=== PATIENT | male | born 1945 | race Caucasian/White ===

== ENCOUNTER 2016-05-24 05:41 | Day surgery (SDC) | payer OTHER, MEDICARE ==
[2016-05-22 10:52] VITALS: BMI 35.2
[~2016-05-24 05:41] MED LIST: ACETAMINOPHEN 325 MG TABLET (FP) PO PRN; CIPROFLOXACIN HCL 0.3% OPHTH 2.5ML BOTTLE OP SCH; CYCLOPENTOLATE HCL 1% OPHTH SOLN 2 ML BOTTLE OP SCH; FLURBIPROFEN 0.03% OPHTH SOLN 2.5 ML BOTTLE OP SCH; PHENYLEPHRINE 2.5% OPHTH SOLN 15 ML BOTTLE OP SCH; TROPICAMIDE 1% OPHTH SOLN 15 ML BOTTLE OP SCH
[2016-05-24] MEDS ORDERED: LIDOCAINE HCL 2% JELLY (5 ML/TUBE) ONE (07:24)
[2016-05-24] MEDS ORDERED: LIDOCAINE HCL/PF 1% SDV 5ML VIAL ONE (07:24)
[2016-05-24] MEDS: FLURBIPROFEN 0.03% OPHTH SOLN 2.5 ML BOTTLE ONE ×2 (10:10→10:20)
[2016-05-24] MEDS: TROPICAMIDE 1% OPHTH SOLN 15 ML BOTTLE ONE ×3 (10:10→10:43)
[2016-05-24] MEDS: CIPROFLOXACIN 0.3% EYE DROPS 5 ML BOTTLE ONE ×3 (10:10→10:42)
[2016-05-24] MEDS: CYCLOPENTOLATE HCL 1% OPHTH SOLN 2 ML BOTTLE ONE ×3 (10:10→10:43)
[2016-05-24] MEDS: PHENYLEPHRINE 2.5% OPHTH SOLN 15 ML BOTTLE ONE ×3 (10:10→10:43)
[2016-05-24 10:33] VITALS: TEMP 97.8
[2016-05-24] MEDS ORDERED: LIDOCAINE HCL 2% JELLY (5 ML/TUBE) TP ONE (11:25)
[2016-05-24] MEDS ORDERED: POVIDONE-IODINE 5% OPHTHALMIC PREP 30 ML SOLUTION OS ONE (11:45)
[2016-05-24] MEDS ORDERED: BSS (NA/CA/MG/K) BALANCED SALT SOLUTION OPHTH SOLN 15 ML BOTTLE OS ONE (11:47)
[2016-05-24] MEDS ORDERED: LIDOCAINE HCL 1% PRESERVATIVE FREE - 30ML VIAL IO ONE (11:47)
[2016-05-24] MEDS ORDERED: EPINEPHrine/PF 1 MG/1 ML (1:1,000) AMPULE IO ONE (11:47)
[2016-05-24] MEDS ORDERED: CHONDROITIN SU A/HYALUR SOD 1 KIT IO ONE (11:47)
[2016-05-24 13:25] VITALS: BP 116/86; PULSE 87
--- NOTE | 2016-05-25 11:00 | SPEC ---
DATE OF OPERATION: 05/24/2016 OPERATION: Phacoemulsification of left cataract with posterior chamber intraocular lens implantation. Lens used [id number], 21.0 Diopter power, Serial No. [id number]. PREOPERATIVE DIAGNOSIS: Cataract, left eye. POSTOPERATIVE DIAGNOSIS: Cataract, left eye. SURGEON: Lito Mendoza M.D. ANESTHESIA: Topical MAC. COMPLICATIONS: None. PROCEDURE: The patient was brought to the operating room and correctly identified along with the operative site and the correct intraocular lens hernandez. The patient was then prepped and draped in the usual sterile fashion including 5% Betadine solution in the conjunctival sac and an eyelid drape. An eyelid speculum was then placed in the eye. A paracentesis port was created and approximately 0.5 mL of preservative free Lidocaine was then injected into the eye. Viscoelastic was then injected to inflate the anterior chamber. A temporal clear corneal wound was created. A continuous circular capsulorrhexis was performed. The nucleus was then hydrodissected with BSS and removed with phacoemulsification. The remaining cortical material was irrigated and aspirated. Viscoelastic was injected to inflate the capsular bag and the intraocular lens was then implanted into the capsular bag. The remaining Viscoelastic was irrigated and aspirated from the eye. The IOL was noted to be well centered and completely covered by the anterior capsulorrhexis. Topical vancomycin was placed and the eye patched and shielded. All wounds were tested and found to be watertight. No suture was placed. The eye was then shielded. The patient was then discharged from the operating room in stable condition. LITO MENDOZA M.D. [id number]
== END 2016-05-24 13:30 | disposition home or self-care (01) ==
LOC: JASU-SURG 05:41
PROVIDERS: ATTEND Ophthalmology
PROC: 08RK3JZ Replacement of Left Lens with Synthetic Substitute, Percutaneous Approach (ICD-10-PCS; principal; 2016-05-24 11:00)
DX: H26.9 Unspecified cataract (principal)

== ENCOUNTER 2016-08-09 05:29 | Day surgery (SDC) | payer OTHER, MEDICARE ==
[2016-08-07 10:56] VITALS: BMI 31.4
[2016-08-09] MEDS ORDERED: CIPROFLOXACIN 0.3% EYE DROPS 5 ML BOTTLE ONE (07:22)
[2016-08-09] MEDS ORDERED: FLURBIPROFEN 0.03% OPHTH SOLN 2.5 ML BOTTLE ONE (07:22)
[2016-08-09] MEDS ORDERED: TROPICAMIDE 1% OPHTH SOLN 15 ML BOTTLE ONE (07:22)
[2016-08-09] MEDS ORDERED: PHENYLEPHRINE 2.5% OPHTH SOLN 15 ML BOTTLE ONE (07:23)
[2016-08-09] MEDS ORDERED: CYCLOPENTOLATE HCL 1% OPHTH SOLN 2 ML BOTTLE ONE (07:23)
[2016-08-09 07:28] VITALS: TEMP 98.7
[2016-08-09] MEDS ORDERED: ACETAMINOPHEN 325 MG TABLET (FP) PO PRN (07:42)
[2016-08-09] MEDS: CIPROFLOXACIN HCL 0.3% OPHTH 2.5ML BOTTLE OP SCH ×3 (07:49→08:29)
[2016-08-09] MEDS: CYCLOPENTOLATE HCL 1% OPHTH SOLN 2 ML BOTTLE OP SCH ×3 (07:49→08:29)
[2016-08-09] MEDS: PHENYLEPHRINE 2.5% OPHTH SOLN 15 ML BOTTLE OP SCH ×3 (07:50→08:29)
[2016-08-09] MEDS: FLURBIPROFEN 0.03% OPHTH SOLN 2.5 ML BOTTLE OP SCH ×3 (07:50→08:29)
[2016-08-09] MEDS: TROPICAMIDE 1% OPHTH SOLN 15 ML BOTTLE OP SCH ×3 (07:50→08:29)
[2016-08-09] MEDS ORDERED: LIDOCAINE HCL 1% PRESERVATIVE FREE - 30ML VIAL IO ONE (08:21)
[2016-08-09] MEDS ORDERED: LIDOCAINE HCL 2% JELLY (5 ML/TUBE) TP ONE (08:50)
[2016-08-09] MEDS ORDERED: MIDAZOLAM HCL 2 MG/2 ML SINGLE DOSE VIAL ONE (09:11)
[2016-08-09] MEDS ORDERED: CHONDROITIN SU A/HYALUR SOD 1 KIT IO ONE (09:23)
[2016-08-09 12:41] VITALS: BP 124/74; PULSE 82
--- NOTE | 2016-08-09 20:59 | SPEC ---
DATE OF OPERATION: OPERATION: Phacoemulsification with posterior chamber intraocular lens implantation, right eye. Lens used [id number], 21.0 Diopter power, Serial No. [id number]. PREOPERATIVE DIAGNOSIS: Cataract, right eye. POSTOPERATIVE DIAGNOSIS: Cataract, right eye. SURGEON: Cory Bruno M.D. ANESTHESIA: Topical MAC. COMPLICATIONS: None. PROCEDURE: The patient was brought to the operating room and correctly identified along with the operative site and the correct intraocular lens hernandez. The patient was then prepped and draped in the usual sterile fashion including 5% Betadine solution in the conjunctival sac and an eyelid drape. An eyelid speculum was then placed in the eye. A paracentesis port was created and approximately 0.5 mL of preservative free Lidocaine was then injected into the eye. Viscoelastic was then injected to inflate the anterior chamber. A temporal clear corneal wound was created. A continuous circular capsulorrhexis was performed. The nucleus was then hydrodissected with BSS and removed with phacoemulsification. The remaining cortical material was irrigated and aspirated. Viscoelastic was injected to inflate the capsular bag and the intraocular lens was then implanted into the capsular bag. The remaining Viscoelastic was irrigated and aspirated from the eye. The IOL was noted to be well centered and completely covered by the anterior capsulorrhexis. Topical vancomycin was placed and the eye patched and shielded. All wounds were tested and found to be watertight. No suture was placed. The eye was then shielded. The patient was then discharged from the operating room in stable condition. Karen ALVARADO/[id number]
== END 2016-08-09 10:40 | disposition home or self-care (01) ==
LOC: JASU-SURG 05:29
PROVIDERS: ATTEND Ophthalmology
PROC: 08RJ3JZ Replacement of Right Lens with Synthetic Substitute, Percutaneous Approach (ICD-10-PCS; principal; 2016-08-09 09:00)
DX: H26.9 Unspecified cataract (principal)

== ENCOUNTER 2016-12-17 00:55 | Emergency (ER) | payer OTHER, MEDICARE ==
[2016-12-17 01:10] VITALS: BP 136/81; PULSE 69; TEMP 97.8; BMI 30.8
--- NOTE | 2016-12-17 01:10 | PDOC ---
History of Present Illness - General History Source: Patient Exam Limitations: No Limitations - History of Present Illness Initial Comments: 12/17/16 02:44 The patient is a 71 year old male, with a significant past medical history of COPD, macular degeneration, arthritis and hypertension who presents to the emergency department complaining of right eye pain and blurry vision (in the right eye) beginning approx. 12 hours ago. The patient reports that he began feeling an odd sensation in his right eye this afternoon and his noted that his right eye was red. The patient describes the right eye pain as a swelling sensation and rates the pain as a 6/10. The patient states that he receives monthly eye injections from his [address] Moraes and received his last injection of Lucentis Tuesday, December 13, 2016 in his right eye. The patient states he attempted to self treat his right eye with the antibiotic Ofloxacin that was left over from his prior cataracts surgery but reports no relief. He denies double vision, photophobia or light flashes. He denies any recent fevers, chills, headache or dizziness. He denies any recent nausea, vomit, diarrhea or constipation. He denies any recent chest pain or shortness of breath. Allergies: NKA Past surgical history: Cataract surgery Social History: Patient states he stopped smoking cigarettes approx. two years ago. He reports smoking 1-2 packs per day prior. PCP: Dr. Jimenez <Manjinder Torres - Last Filed: 12/17/16 03:38> - General History Source: Patient Exam Limitations: No Limitations <Fernanda Mcgrath - Last Filed: 12/20/16 17:38> - General Chief Complaint: Eye Problem Stated Complaint: EYE PROBLEM Time Seen by Provider: 12/17/16 01:10 Past History <Manjinder Torres - Last Filed: 12/17/16 03:38> - Past Medical History Cancer: No Cardiac Disorders: (MURMUR) CVA: Yes COPD: Yes GI Disorders: (gallstone incidental finding) HTN: Yes Hypercholesterolemia: Yes Other medical history: macular degeneration of eyes - Psycho/Social/Smoking Cessation Hx Suicidal Ideation: No Smoking History: Never smoked Have you smoked in the past 12 months: No If you are a former smoker, when did you quit?: 2014 Information on smoking cessation initiated: No Hx Alcohol Use: No Drug/Substance Use Hx: No Substance Use Type: None Hx Substance Use Treatment: No <Fernanda Mcgrath - Last Filed: 12/20/16 17:38> - Past Medical History Allergies/Adverse Reactions: Allergies Allergy/AdvReac Type Severity Reaction Status Date / Time No Known Allergies Allergy Verified 12/17/16 01:03 Home Medications: Ambulatory Orders Aspirin [Aspirin EC] 81 mg PO DAILY 04/04/15 Atorvastatin Ca [Lipitor] 20 mg PO DAILY 04/04/15 Metoprolol Tartrate 25 mg PO ACDIN 04/04/15 Amlodipine Besylate 10 mg PO ACDIN 05/22/16 Budesonide/Formeterol Fumarate [SYMBICORT 160/4.5mcg -] 2 inh PO BID 05/22/16 Furosemide 20 mg PO DAILY 05/22/16 Tiotropium [place] [Spiriva Respimat] 2 inh IH HS 05/22/16 B2/Vits A,C,E/Lut/Zeaxanth/Min [Icaps Tablet] 1 each PO BID 08/07/16 Calcium Carbonate [Calcium] 1,000 mg PO DAILY 08/07/16 Cholecalciferol (Vitamin D3) [Vitamin D3 -] 1,000 unit PO DAILY 08/07/16 Cyanocobalamin [Vitamin B12 -] 1,000 mcg PO DAILY 08/07/16 [place]-3/Dha/Epa/Fish Oil [Fish Oil 1,000 mg Softgel] 2,000 mg PO DAILY 08/07/16 Review of Systems - Review of Systems Comments:: 12/17/16 02:59 GENERAL/CONSTITUTIONAL: No fever or chills. No weakness. HEAD, EYES, EARS, NOSE AND THROAT: +Right eye blurry vision. +Right eye swelling and pain. No ear pain or discharge. No sore throat. CARDIOVASCULAR: No chest pain or shortness of breath. RESPIRATORY: No cough, wheezing, or hemoptysis. GASTROINTESTINAL: No nausea, vomiting, diarrhea or constipation. GENITOURINARY: No dysuria, frequency, or change in urination. MUSCULOSKELETAL: No joint or muscle swelling or pain. No neck or back pain. SKIN: No rash NEUROLOGIC: No headache, vertigo, loss of consciousness, or change in strength/ sensation. ENDOCRINE: No increased thirst. No abnormal weight change. HEMATOLOGIC/LYMPHATIC: No anemia, easy bleeding, or history of blood clots. ALLERGIC/IMMUNOLOGIC: No hives or skin allergy. <Manjinder Torres - Last Filed: 12/17/16 03:38> *Physical Exam - Vital Signs Last Vital Signs Temp Pulse Resp BP Pulse Ox 97.8 F 69 18 136/81 97 12/17/16 00:59 12/17/16 00:59 12/17/16 00:59 12/17/16 00:59 12/17/16 00:59 - Physical Exam Comments: 12/17/16 03:00 GENERAL: The patient is in no acute distress. HEAD: Normal with no signs of trauma. EYES: +Superior visual field defect in right eye. 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 + Yellow/white plaque 8 o'clock direction on right eye. +Conjunctival injection on right eye. Pupil 2mm right eye and 4mm left eye. Direct consensual light reflexes intact. Accommodation in tact. Ocular motion in tact. Corrected near vision 20/200 with left eye and both eyes on exam. 20/800 with right eye alone. Pt. states normal 20/30. ENT: Ears normal, nares patent, oropharynx clear without exudates. Moist mucous membranes. NECK: Normal range of motion, supple without lymphadenopathy, JVD, or masses. LUNGS: Breath sounds equal, clear to auscultation bilaterally. No wheezes, and no crackles. HEART:Regular rate and rhythm, normal S1 and split S2 3rd intercostal space without murmur, rub or gallop. NEUROLOGICAL: Cranial nerves II through XII grossly intact. Normal speech. No focal neurological deficits. SKIN: Warm, Dry, normal turgor, no rashes or lesions noted. 12/17/16 03:39 <Manjinder Torres - Last Filed: 12/17/16 03:38> - Vital Signs Last Vital Signs Temp Pulse Resp BP Pulse Ox 97.8 F 69 18 136/81 97 12/17/16 00:59 12/17/16 00:59 12/17/16 00:59 12/17/16 00:59 12/17/16 00:59 <Fernanda Mcgrath - Last Filed: 12/20/16 17:38> ED Treatment Course - Medications Given in the ED: ED Medications Discontinued Medications Generic Name Dose Route Start Last Admin Trade Name Freq PRN Reason Stop Dose Admin Pilocarpine HCl 1 drop 12/17/16 02:16 12/17/16 02:28 Pilostat 2% - OD 12/17/16 02:17 1 drop NOW ONE Administration <Manjinder Torres - Last Filed: 12/17/16 03:38> Medical Decision Making - Critical Care Time Total Critical Care Time (minutes): 35 Critical Care Statement: The care of this patient involved high complexity decision making to prevent further life threatening deterioration of the patient 's condition and/or to evaluate & treat vital organ system(s) failure or risk of failure. - Medical Decision Making 12/17/16 01:35 A portion of this note was documented by scribe services under my direction. I have reviewed the details of the note, within reason, and agree with the documentation with the following case summary and management plan written by me. Nursing documentation reviewed and incorporated into medical decision making 71 yo M h/o HTN, macular degeneration, sleep apnea who presents to the ER with a complaint of vision loss right eye Pt has a history of macular degeneration S/p intra ocular injection 3 days ago This afternoon, he noted a gradual onset of right eye pain and vision blurriness beginning at 2:30pm Since that time, he has lost most of the vision in his right eye Currently: EOMI Right pupil 1-2 mm Sclera injected Pt reports right eye pain (+) tearing vision 20/200 (pt is only able to see the top line of the vision chart, is unable to make out the numbers but can see that there is something there) Pt preferentially keeps eye closed 12/17/16 01:[address] Schmitz x 2 No response, on hold > 10 minutes Call placed to [facility] instead for transfer given high likelihood of acute narrow angle glaucoma vs. retinal detachment 12/17/16 01:59 12/17/16 02:[address] Denson at [facility] 12/17/16 02:[address] Denson Will transfer to [facility] <Fernanda Mcgrath - Last Filed: 12/20/16 17:38> *DC/Admit/Observation/Transfer - Attestations Scribe Attestion: 12/17/16 03:18 Documentation prepared by Manjinder Torres, acting as medical information specialist for Fernanda Mcgrath MD. <Manjinder Torres - Last Filed: 12/17/16 03:38> - Discharge Dispostion Admit: No - Transfer to Acute Care Facility Receiving Facility: [facility]. Accepting Physician:: Dr. Denson <Fernanda Mcgrath - Last Filed: 12/20/16 17:38> Diagnosis at time of Disposition: Vision loss of right eye - Discharge Dispostion Disposition: TRANSFER ACUTE CARE/OTHER HOSP Condition at time of disposition: Stable - Referrals Referrals: Danny Jimenez MD [Primary Care Provider] -
[2016-12-17] MEDS ORDERED: PILOCARPINE 2% OPHTHALMIC SOLUTION 15 ML BOTTLE OD ONE (02:16)
[2016-12-17] MEDS ORDERED: TIMOLOL 0.5% OPHTHALMIC SOL 5 ML BOTTLE OD ONE (02:20)
[2016-12-17] MEDS ORDERED: PILOCARPINE 1% OPHTHALMIC SOLUTION 15 ML BOTTLE ONE (02:26)
[2016-12-17] MEDS ORDERED: NAPROXEN 500 MG TABLET (FP) ONE (02:48)
[2016-12-17] MEDS ORDERED: NAPROXEN 500 MG TABLET (FP) PO ONE (02:59)
== END 2016-12-17 04:40 | disposition short-term general hospital (02) ==
LOC: JER 00:55
DX: H54.61 Unqualified visual loss, right eye, normal vision left eye (principal); I10 Essential (primary) hypertension; H35.30 Unspecified macular degeneration; J44.9 Chronic obstructive pulmonary disease, unspecified
CPT/HCPCS: 99283-25

== ENCOUNTER 2018-02-12 17:01 | Inpatient (IN) | payer OTHER, MEDICARE ==
--- NOTE | 2018-02-12 17:26 | PDOC ---
Rapid Medical Evaluation Time Seen by Provider: 02/12/18 17:04 Medical Evaluation: Allergies Allergy/AdvReac Type Severity Reaction Status Date / Time No Known Allergies Allergy Verified 02/12/18 17:20 02/12/18 17:20 Pt presents to the ED for pain and redness to his Left lower extremity. Pt states he had bypass done on 01/24/18 and had the veins harvested from the LLE. He states he has been on abx for one week for the infection. PCP is Dr. Jimenez Exam: redness and swelling to the LLE streaking up the leg Orders: Labs, US, IV Pt to proceed to the ED for further evaluation Discharge Disposition - Diagnosis Left leg swelling - Referrals Referrals: Danny Jimenez MD [Primary Care Provider] - - Patient Instructions - Post Discharge Activity
--- NOTE | 2018-02-12 18:22 | PDOC ---
History of Present Illness - General Chief Complaint: Redness To Affected Area Stated Complaint: PCP SENT FOR LT DVT Time Seen by Provider: 02/12/18 17:04 - History of Present Illness Initial Comments: Musa Lara is a 72yo man with a PMH of HTN, HLD, COPD and CAD s/p recent CABG with LLE GSV harvest on 01/24/18 at [place]. His postop course was complicated by development of a-fib, and he is now on anticoagulation. Mr Lara reports that he was discharged home with warfarin following his surgery , but he was instructed to stop taking it about a week ago when his INR was 8 or 9 on his monitoring labs. He was recently switched to apixaban instead ( should start today). After he was discharged home, Mr Lara started to have redness and swelling in his left leg. He had a home nurse at that time who felt that he might have cellulitis He went to follow up with his PMD, Dr Jimenez, and saw an ROLL GRINDER in the office. He was started on keflex and sent for labs. On 02/06/18, he had a leukocytosis to 15 and wound culture grew skin darcy and pseudomonas. The results of these labs were not available until 02/09. Mr Lara received a call from Dr Jimenez's office yesterday telling him to stop the keflex and start taking a different antibiotic. He went to the office today for followup and was sent to the ED for evaluation of possible DVT as he had been off warfarin for a week. Mr Lara reports that over the past week, he has been compliant with his antibiotics and has followed up as directed post-operatively. However his left leg has become increasingly red, swollen, and painful. He has not noted any fevers, shaking chills or drainage from his surgical incisions. He does report some swelling on his upper left chest adjacent to his sternal incision. Past History - Past Medical History Allergies/Adverse Reactions: Allergies Allergy/AdvReac Type Severity Reaction Status Date / Time No Known Allergies Allergy Verified 02/12/18 17:20 Home Medications: Ambulatory Orders Albuterol Sulfate Inhaler - [Ventolin Hfa Inhaler -] 2 inh PO Q6H 02/12/18 Amiodarone HCl 200 mg PO BID 02/12/18 Apixaban [Eliquis] 5 mg PO BID 02/12/18 Aspirin [ASA -] 81 mg PO DAILY 02/12/18 Atorvastatin Ca [Lipitor] 40 mg PO HS 02/12/18 Budesonide/Formeterol Fumarate [SYMBICORT 160/4.5mcg -] 2 inh PO BID 02/12/18 Calcium Carbonate [Super Calcium] 600 mg PO DAILY 02/12/18 Ciprofloxacin [Cipro (Restricted To Id)] 500 mg PO Q12H 02/12/18 Cyanocobalamin (Vitamin B-12) [Vitamin B-12] 1,000 mcg PO DAILY 02/12/18 Dutasteride [Avodart] 0.5 mg PO DAILY 02/12/18 Furosemide 40 mg PO BID 02/12/18 Multivitamin [One Daily] 1 each PO DAILY 02/12/18 Potassium Chloride [K-Tab ER] 10 meq PO DAILY 02/12/18 Tiotropium [place] [Spiriva Respimat] 2 puff IH DAILY 02/12/18 Anemia: No Asthma: No Cancer: No Cardiac Disorders: (MURMUR,triple bypass) CVA: Yes COPD: No CHF: No Dementia: No Diabetes: No GI Disorders: (gallstone incidental finding) Disorders: No HTN: Yes Hypercholesterolemia: Yes Liver Disease: No Seizures: No Thyroid Disease: No - Surgical History Cardiac Surgery: Yes (triple bypass) - Immunization History Immunization Up to Date: Yes - Suicide/Smoking/Psychosocial Hx Smoking History: Never smoked Have you smoked in the past 12 months: No If you are a former smoker, when did you quit?: 2014 Hx Alcohol Use: No Drug/Substance Use Hx: No Substance Use Type: None Hx Substance Use Treatment: No Review of Systems - Review of Systems Comments:: General: No fevers, no chills, no weight or appetite change, no malaise HEENT: No changes in vision, no changes in hearing, no congestion, no sore throat CV: No chest pain, no palpitations, no LE edema Pulm: No SOB, no cough, no wheezing GI: No nausea or vomiting, no change in bowel habits, no melena : No frequency, no urgency, no dysuria Musc: See HPI Skin: No rash, no lesions, no erythema Endo: No excessive thirst, no heat/cold intolerance Heme: No unusual bruising or bleeding, no swollen glands Neuro: No syncope, no numbness/tingling, no focal weakness Vasc: No claudication Psych: No recent change in mood, no SI or HI *Physical Exam - Vital Signs Last Vital Signs Temp Pulse Resp BP Pulse Ox 98.0 F 67 18 109/65 92 L 02/12/18 17:20 02/12/18 17:20 02/12/18 17:20 02/12/18 17:20 02/12/18 17:20 - Physical Exam Comments: General: Comfortable, no acute distress HEENT: PERRL, EOMI, MMM, voice normal, normal neck ROM, no LAD Cards: Irregularly irregular. Mid-sternal incision healing well, c/d/i. No surrounding erythema or edema. Sub-xiphoid CT sites also clean, dry, intact, healing well. Pulm: Comfortable on room air, clear to auscultation bilaterally Abd: Soft, nontender, nondistended. Erythema/irritation with linear borders across upper abdomen consistent with contact dermatitis from tape : No CVA tenderness Ext: B/l upper and lower extremity ROM intact. RLE with trace pitting edema. Rough, scattered red spots on lateral foot and ankle LLE visibly swollen, erythematous. Lateral calf with two ~2cm incision from vein harvest, No drainage, no additional swelling or erythema near incisions. Distal to knee, LLE is warm to touch and TTP. No focal fluctuance. No crepitus. Vasc: Extremities WWP. Skin: Normal color, no rashes or lesions Neuro: A&Ox3, CN grossly intact, normal speech, motor/sensory grossly intact and symmetric Psych: Mood appropriate to situation ED Treatment Course - LABORATORY CBC & Chemistry Diagram: 02/12/18 18:20 02/12/18 18:20 Medical Decision Making - Medical Decision Making 02/12/18 19:09 Musa Lara is a 72yo man with a PMH of HTN, HLD, COPD, CABG on 01/24/[address] [facility], postoperative a-fib on warfarin now switched to apixaban who presents with LLE erythema, edema, and pain that has worsened despite 1 week of antibiotics at home. - Sent by ROLL GRINDER at Dr Jimenez's office for DVT workup, but presentation more consistent with worsening cellulitis. Has cultures and labs from 02/06 indicating that his wound had skin darcy and pseudomonas. He had been on keflex until yesterday - CBC, CMP, coags sent in RME - Duplex ultrasound ordered in RME - Will likely be admitted for cellulitis or DVT depending on results - Per patient request, ordered home metoprolol and amiodarone 02/12/18 19:30 - Labs with high-normal WBC at 10.9 - Elevated LFTs, slight hypokalemia, INR 1.55 - Duplex without any thrombus. Fluid collection noted between knee and ankle. - Most likely has cellulitis; keflex would not have covered infection with pseudomonas. Vanc/zosyn started. - Microblog sent to hospitalist team for admission. Will need IV antibiotics given worsening symptoms. Waiting for call back. 02/12/18 20:00 - Spoke to medicine service regarding admission. Accepted to hospitalist service. Seen and discussed with Dr Rome. Meli Davenport PGY1 *DC/Admit/Observation/Transfer Diagnosis at time of Disposition: Left leg swelling - Discharge Dispostion Decision to Admit order: Yes - Referrals - Patient Instructions - Post Discharge Activity
[2018-02-12 18:31] LABS: EOS % 1.3 % (0-4.5); HEMATOCRIT 36.8 % (35.4-49); HEMOGLOBIN 12.2 GM/dL (11.7-16.9); LYMPH % 9.4 % (8-40); MCH 31.4 pg (25.7-33.7); MCHC 33.3 g/dl (32.0-35.9); MEAN CELL VOLUME 94.5 fl (80-96); MEAN PLT VOLUME 8.6 fl (7.5-11.1); MONO % 8.9 % (3.8-10.2); NEUT % 79.4 % (42.8-82.8); PLATELET COUNT 311 K/MM3 (134-434); RBC 3.89 M/mm3 (4.00-5.60); RDW 14.3 % (11.9-15.9); WHITE BLOOD COUNT 10.9 K/mm3 (4.0-10.0)
[2018-02-12] MEDS ORDERED: AMIODARONE HCL 200 MG TABLET (FP) PO ONE (18:56)
[2018-02-12] MEDS ORDERED: METOPROLOL TARTRATE 50 MG TABLET (FP) PO ONE (18:56)
--- NOTE | 2018-02-12 19:01 | PDOC ---
Attending Attestation - Resident Resident Name: Meli Davenport - ED Attending Attestation I have performed the following: I have examined & evaluated the patient, The case was reviewed & discussed with the resident, I agree w/resident's findings & plan, Exceptions are as noted - HPI HPI: 02/12/18 18:58 72 year old male c/ past medical history of pAfib on eliquis, COPD, HTN, CAD p/ w LLE cellulitis. The patient recently had a CABG at [facility] on 01/24/18. Reportedly uncomplicated. Took graft veins from LLE. Noticed ~1 wk ago of developing erythema. Was started on cephalexin but redness worsened. Reports increasing LLE pain. No fevers, chills. Pt saw her PMD again today and sent pt to ED. - Physicial Exam PE: 02/12/18 18:59 GENERAL: Awake, alert, and fully oriented, in no acute distress HEAD: No signs of trauma EYES: EOMI, sclera anicteric, conjunctiva clear ENT: Auricles normal inspection, hearing grossly normal, nares patent,Moist mucosa NECK: Normal ROM, supple EXTREMITIES: Normal range of motion. LLE: diffuse erythema LLE. 1+ pitting edema. erythema extending from foot extending to prox [place]. NEUROLOGICAL: Cranial nerves II through XII grossly intact. Normal speech SKIN: Warm, Dry, normal turgor, no rashes or lesions noted. - Medical Decision Making 02/12/18 19:00 Vital Signs Temp Pulse Resp BP Pulse Ox 98.0 F 67 18 109/65 96 02/12/18 17:20 02/12/18 17:20 02/12/18 18:50 02/12/18 17:20 02/12/18 18:50 R/o DVT. However, the pt's skin findings are consistent with cellulitis. Failed outpatient treatment. Will obtain cultures. Start empiric IV antibiotics vanc and zosyn. Admit. Heart Score/ECG Review #1 ECG reviewed & interpreted by me at: 19:00 02/12/18 19:12 NSR 69 with 1st degree AV block, low voltage QRS, no std/geo, QTC 570 msec
[2018-02-12 19:04] LABS: INR 1.55 (0.83-1.09); PROTHROMBIN TIME (PATIENT) 18.4 SEC (9.7-13.0)
[2018-02-12] MEDS ORDERED: METOPROLOL TARTRATE 50 MG TABLET (FP) ONE (19:13)
[2018-02-12] MEDS ORDERED: METOPROLOL TARTRATE 25 MG TABLET (FP) ONE (19:13)
[2018-02-12] MEDS ORDERED: AMIODARONE HCL 200 MG TABLET (FP) ONE (19:13)
[2018-02-12 19:19] LABS: ALBUMIN 3.1 g/dl (3.4-5.0); ALK PHOS 126 U/L (45-117); ANION GAP 8 MMOL/L (8-16); BILIRUBIN,TOTAL 0.6 mg/dL (0.2-1); BLOOD UREA NITROGEN 13 mg/dL (7-18); CALCIUM 8.2 mg/dL (8.5-10.1); CHLORIDE 104 mmol/L (98-107); CO2 31 mmol/L (21-32); CREATININE 0.9 mg/dL (0.55-1.3); GLUCOSE,RANDOM 81 mg/dL (74-106); POTASSIUM 3.1 mmol/L (3.5-5.1); SGOT/AST 72 U/L (15-37); SGPT/ALT 106 U/L (13-61); SODIUM 143 mmol/L (136-145); TOT PROT 5.9 g/dl (6.4-8.2)
[2018-02-12] MEDS ORDERED: POTASSIUM CHLORIDE TABS 20 MEQ TABLET.ER (FP) PO ONE ×2 (19:32→20:28)
[2018-02-12 19:57] LABS: URINE APPEARANCE CLEAR; URINE BILIRUBIN NEGATIVE (<2.0 mg/dL); URINE COLOR LTYELLOW; URINE GLUCOSE (UA) NEGATIVE (NEGATIVE); URINE KETONE NEGATIVE (NEGATIVE); URINE LEUK ESTERASE TRACE (NEGATIVE); URINE NITRITE NEGATIVE (NEGATIVE); URINE PROTEIN NEGATIVE (NEGATIVE); URINE UROBILINOGEN NEGATIVE mg/dL (0.2-1.0)
--- NOTE | 2018-02-12 19:57 | HP ---
CHIEF COMPLAINT: PCP: Dr. Jimenez HISTORY OF PRESENT ILLNESS: his is a 72 year old male with a past medical history of Paroxysmal Afib (on Eliquis), COPD (on O2), HTN, CAD. Who presents to the ED with increased redness , swelling and pain to his left lower extremity.The patient recently had a CABG at [facility] on 01/24/18. Reportedly uncomplicated. Took graft veins from [facility]. He noticed ~1 wk ago of developing erythema. He was started on cephalexin but redness worsened. Patient reports seeing his PCP again today and was sent in for admission for Cellulitis. Patient reports having fevers. He denies chills, cough, SOB, CP, AP, N/V/D, dysuria. ER course was notable for: (1) WBC 10.9 (2) K 3.1 (3) Recent Travel: None PAST MEDICAL HISTORY: See HPI PAST SURGICAL HISTORY: See HPI Social History: Smoking: Former Alcohol: None Drugs: None Family History: Allergies No Known Allergies Allergy (Verified 02/12/18 17:20) HOME MEDICATIONS: Home Medications Medication Instructions Recorded Albuterol Sulfate Inhaler - 2 inh PO Q6H 02/12/18 [Ventolin Hfa Inhaler -] Amiodarone HCl 200 mg PO BID 02/12/18 Apixaban [Eliquis] 5 mg PO BID 02/12/18 Aspirin [ASA -] 81 mg PO DAILY 02/12/18 Atorvastatin Ca [Lipitor] 40 mg PO HS 02/12/18 Budesonide/Formeterol Fumarate 2 inh PO BID 02/12/18 [SYMBICORT 160/4.5mcg -] Calcium Carbonate [Super Calcium] 600 mg PO DAILY 02/12/18 Ciprofloxacin [Cipro (Restricted 500 mg PO Q12H 02/12/18 To Id)] Cyanocobalamin (Vitamin B-12) 1,000 mcg PO DAILY 02/12/18 [Vitamin B-12] Dutasteride [Avodart] 0.5 mg PO DAILY 02/12/18 Furosemide 40 mg PO BID 02/12/18 Multivitamin [One Daily] 1 each PO DAILY 02/12/18 Potassium Chloride [K-Tab ER] 10 meq PO DAILY 02/12/18 Tiotropium [place] [Spiriva 2 puff IH DAILY 02/12/18 Respimat] REVIEW OF SYSTEMS CONSTITUTIONAL: fever Absent: chills, diaphoresis, generalized weakness, malaise, loss of appetite, weight change HEENT: Absent: rhinorrhea, nasal congestion, throat pain, throat swelling, difficulty swallowing, mouth swelling, ear pain, eye pain, visual changes CARDIOVASCULAR: Absent: chest pain, syncope, palpitations, irregular heart rate, lightheadedness , peripheral edema RESPIRATORY: Absent: cough, shortness of breath, dyspnea with exertion, orthopnea, wheezing, stridor, hemoptysis GASTROINTESTINAL: Absent: abdominal pain, abdominal distension, nausea, vomiting, diarrhea, constipation, melena, hematochezia GENITOURINARY: Absent: dysuria, frequency, urgency, hesitancy, hematuria, flank pain, genital pain MUSCULOSKELETAL: left leg pain and swelling Absent: myalgia, back pain, neck pain SKIN: Absent: rash, itching, pallor HEMATOLOGIC/IMMUNOLOGIC: Absent: easy bleeding, easy bruising, lymphadenopathy, frequent infections ENDOCRINE: Absent: unexplained weight gain, unexplained weight loss, heat intolerance, cold intolerance NEUROLOGIC: Absent: headache, focal weakness or paresthesias, dizziness, unsteady gait, seizure, mental status changes, bladder or bowel incontinence PSYCHIATRIC: Absent: anxiety, depression, suicidal or homicidal ideation, hallucinations. PHYSICAL EXAMINATION Vital Signs - 24 hr 02/12/18 02/12/18 17:20 18:50 Temperature 98.0 F Pulse Rate 67 Respiratory 18 18 Rate Blood Pressure 109/65 O2 Sat by Pulse 92 L 96 Oximetry (%) GENERAL: Awake, alert, and fully oriented, in no acute distress. HEAD: Normal with no signs of trauma. EYES: Pupils equal, round and reactive to light, extraocular movements intact, sclera anicteric, conjunctiva clear. No lid lag. EARS, NOSE, THROAT: Ears normal, nares patent, oropharynx clear without exudates. Moist mucous membranes. NECK: Normal range of motion, supple without lymphadenopathy, JVD, or masses. LUNGS: Breath sounds equal, clear to auscultation bilaterally. No wheezes, and no crackles. No accessory muscle use. HEART: Regular rate and rhythm, normal S1 and S2 without murmur, rub or gallop. ABDOMEN: Obese, soft, nontender, not distended, normoactive bowel sounds, no guarding, no rebound, no masses. No hepatomegaly or splenomegaly. MUSCULOSKELETAL: Normal range of motion at all joints. No bony deformities or tenderness. No CVA tenderness. UPPER EXTREMITIES: 2+ pulses, warm, well-perfused. No cyanosis. No clubbing. No peripheral edema. LOWER EXTREMITIES: 2+ pulses, warm, well-perfused. No calf tenderness. +2 L>R pitting peripheral edema. NEUROLOGICAL: Cranial nerves II-XII intact. Normal speech. Gait not observed. PSYCHIATRIC: Cooperative. Good eye contact. Appropriate mood and affect. SKIN: Warm, dry, normal turgor, no rashes or lesions noted, normal capillary refill. Laboratory Results - last 24 hr 02/12/18 02/12/18 02/12/18 18:20 18:20 18:20 WBC 10.9 H RBC 3.89 L Hgb 12.2 Hct 36.8 D MCV 94.5 MCH 31.4 MCHC 33.3 RDW 14.3 Plt Count 311 D MPV 8.6 Absolute Neuts (auto) 8.7 H Neutrophils % 79.4 Lymphocytes % 9.4 D Monocytes % 8.9 Eosinophils % 1.3 Basophils % 1.0 Nucleated RBC % 0 PT with INR 18.40 H INR 1.55 H Sodium 143 Potassium 3.1 L Chloride 104 Carbon Dioxide 31 Anion Gap 8 BUN 13 Creatinine 0.9 Creat Clearance w eGFR > 60 Random Glucose 81 Lactic Acid Calcium 8.2 L Total Bilirubin 0.6 AST 72 H ALT 106 H Alkaline Phosphatase 126 H Total Protein 5.9 L Albumin 3.1 L 02/12/18 19:00 WBC RBC Hgb Hct MCV MCH MCHC RDW Plt Count MPV Absolute Neuts (auto) Neutrophils % Lymphocytes % Monocytes % Eosinophils % Basophils % Nucleated RBC % PT with INR INR Sodium Potassium Chloride Carbon Dioxide Anion Gap BUN Creatinine Creat Clearance w eGFR Random Glucose Lactic Acid 1.2 Calcium Total Bilirubin AST ALT Alkaline Phosphatase Total Protein Albumin ASSESSMENT/PLAN: Problem List - Problem (1) Cellulitis of left lower extremity Code(s): L03.116 - CELLULITIS OF LEFT LOWER LIMB (2) Left leg swelling Code(s): M79.89 - OTHER SPECIFIED SOFT TISSUE DISORDERS (3) S/P CABG (coronary artery bypass graft) Code(s): Z95.1 - PRESENCE OF AORTOCORONARY BYPASS GRAFT (4) HTN (hypertension) Code(s): I10 - ESSENTIAL (PRIMARY) HYPERTENSION (5) CAD (coronary artery disease) Code(s): I25.10 - ATHSCL HEART DISEASE OF [place] CORONARY ARTERY W/O ANG PCTRS (6) COPD (chronic obstructive pulmonary disease) Code(s): J44.9 - CHRONIC OBSTRUCTIVE PULMONARY DISEASE, UNSPECIFIED Visit type - Emergency Visit Emergency Visit: Yes ED Registration Date: 02/12/18 Care time: The patient presented to the Emergency Department on the above date and was hospitalized for further evaluation of their emergent condition. - New Patient This patient is new to me today: Yes Date on this admission: 02/12/18 - Critical Care Critical Care patient: No
[2018-02-12] MEDS ORDERED: FUROSEMIDE 40 MG TABLET (FP) ONE (20:27)
[2018-02-12] MEDS: FUROSEMIDE 40 MG TABLET (FP) PO SCH (21:00)
[2018-02-12] MEDS: BUDESONIDE/FORMETEROL FUMARATE 160/4.5 mcg INHALER IH SCH (22:30)
[2018-02-12] MEDS ORDERED: APIXABAN 5 MG TABLET PO ONE (22:43)
[2018-02-12] MEDS ORDERED: ATORVASTATIN CA 40 MG TABLET (FP) ONE (22:43)
[2018-02-12] MEDS: ATORVASTATIN CA 40 MG TABLET (FP) PO SCH (22:50)
[2018-02-12] MEDS: APIXABAN 5 MG TABLET PO SCH (22:50)
[2018-02-12] MEDS ORDERED: VANCOMYCIN 1,500 MG in DEXTROSE 5%-WATER - 250 ML IVPB ONE (23:28)
[2018-02-12] MEDS ORDERED: PIPERACILLIN/TAZOB 4.5 GM 4.5 GM in DEXTROSE 5%-WATER 100 ML IVPB ONE (23:29)
[2018-02-12] MEDS ORDERED: VANCOMYCIN 1,500 MG in DEXTROSE 5%-WATER - 500 ML IVPB ONE (23:46)
[2018-02-12] MEDS ORDERED: PIPERACILLIN/TAZOB 4.5 GM 4.5 GM/100 ML BAG IVPB ONE (23:48)
[2018-02-13] MEDS ORDERED: ALBUTEROL SO4 8 GM HFA INHALER IH PRN (03:29)
[2018-02-13 03:45] VITALS: BMI 33.2
[2018-02-13] MEDS ORDERED: METOPROLOL TARTRATE 50 MG TABLET (FP) ONE ×2 (05:52→18:03)
[2018-02-13] MEDS ORDERED: METOPROLOL TARTRATE 25 MG TABLET (FP) ONE ×2 (05:53→18:04)
[2018-02-13] MEDS ORDERED: ALBUTEROL SO4 8 GM HFA INHALER IH SCH (06:00)
[2018-02-13] MEDS: FUROSEMIDE 40 MG TABLET (FP) PO SCH ×2 (06:05→14:54)
[2018-02-13] MEDS: METOPROLOL TARTRATE 50 MG, METOPROLOL TARTRATE 25 MG PO SCH ×2 (06:55→18:36)
[2018-02-13] MEDS: AMIODARONE HCL 200 MG TABLET (FP) PO SCH ×2 (06:56→18:36)
[2018-02-13 07:40] LABS: BASO % 0.4 % (0-2.0); EOS % 1.5 % (0-4.5); HEMATOCRIT 36.5 % (35.4-49); HEMOGLOBIN 11.8 GM/dL (11.7-16.9); LYMPH % 11.4 % (8-40); MCH 30.7 pg (25.7-33.7); MCHC 32.4 g/dl (32.0-35.9); MEAN CELL VOLUME 94.7 fl (80-96); MEAN PLT VOLUME 9.1 fl (7.5-11.1); MONO % 9.5 % (3.8-10.2); NEUT % 77.2 % (42.8-82.8); PLATELET COUNT 266 K/MM3 (134-434); RBC 3.86 M/mm3 (4.00-5.60); WHITE BLOOD COUNT 11.6 K/mm3 (4.0-10.0)
[2018-02-13] MEDS ORDERED: PIPERACILLIN/TAZOB 4.5 GM 4.5 GM in DEXTROSE 5%-WATER 100 ML IVPB ONE (08:00)
[2018-02-13 08:11] LABS: ANION GAP 6 MMOL/L (8-16); BLOOD UREA NITROGEN 11 mg/dL (7-18); CALCIUM 8.3 mg/dL (8.5-10.1); CHLORIDE 104 mmol/L (98-107); CO2 30 mmol/L (21-32); CREATININE 0.9 mg/dL (0.55-1.3); GLUCOSE,RANDOM 83 mg/dL (74-106); SODIUM 140 mmol/L (136-145)
[2018-02-13] MEDS ORDERED: DEXTROSE 5%-WATER 100 ML IVPB ONE (08:16)
[2018-02-13] MEDS ORDERED: PIPERACILLIN/TAZOBACTAM 4.5 GM VIAL IVPB ONE (08:16)
[2018-02-13 08:28] LABS: POTASSIUM 2.9 mmol/L (3.5-5.1)
[2018-02-13] MEDS ORDERED: PIPERACILLIN/TAZOB 4.5 GM 4.5 GM in DEXTROSE 5%-WATER 100 ML IVPB SCH (09:00)
--- NOTE | 2018-02-13 09:31 | PN ---
Progress Note, Physician History of Present Illness: 72yo man with a PMH of HTN, HLD, COPD and CAD s/p recent CABG with LLE GSV harvest on 01/24/18 at [facility]. His postop course was complicated by development of a-fib, and he is now on anticoagulation-- Mr Lara reports that he was discharged home with warfarin following his surgery , but he was instructed to stop taking it about a week ago when his INR was 8 or 9 on his monitoring labs. He was recently switched to apixaban instead ( should start today). After he was discharged home, Mr Lara started to have redness and swelling in his left leg. He had a home nurse at that time who felt that he might have cellulitis He went to follow up with ADJUSTER ARBITRATOR mony in the office. He was started on keflex and sent for labs. On 02/06/18, he had a leukocytosis to 15 and wound culture grew skin darcy and pseudomonas. Mr Lara received a call from Dr Jimenez 's office yesterday telling him to stop the keflex and start taking Cipro. He was seen in the office today for followup and was sent to the ED for evaluation of possible DVT and cellulitis as he had been off warfarin for a week. Mr Lara reports that over the past week, he has been compliant with his antibiotics and has followed up as directed post-operatively. However his left leg has become increasingly red, swollen, and painful. He has not noted any fevers, shaking chills or drainage from his surgical incisions. He does report some swelling on his upper left chest adjacent to his sternal incision. - Current Medication List Current Medications: Active Medications Albuterol Sulfate (Ventolin Hfa Inhaler -) 2 puff IH Q6H PRN PRN Reason: SHORT OF BREATH/WHEEZING Amiodarone HCl (Cordarone -) 200 mg PO BID@0730,1929 [facility] Last Admin: 02/13/18 06:56 Dose: 200 mg Apixaban (Eliquis -) 5 mg PO BID [facility] Last Admin: 02/12/18 22:50 Dose: 5 mg Aspirin (Asa -) 81 mg PO DAILY [facility] Atorvastatin Calcium (Lipitor -) 40 mg PO HS [facility] Last Admin: 02/12/18 22:50 Dose: 40 mg Budesonide/Formoterol Fumarate (Symbicort 160/4.5mcg -) 2 puff IH BID [facility] Last Admin: 02/12/18 22:30 Dose: 2 puff Dutasteride (Avodart -) 0.5 mg PO DAILY [facility] Furosemide (Lasix -) 40 mg PO BIDLASIX [facility] Last Admin: 02/13/18 06:05 Dose: 40 mg Piperacillin Sod/Tazobactam (Sod 4.5 gm/ Dextrose) 100 mls @ 200 mls/hr IVPB Q6H-IV [facility]; Protocol Vancomycin HCl 1,000 mg/ (Dextrose) 250 mls @ 200 mls/hr IVPB Q24H [facility]; Protocol Metoprolol Tartrate 50 mg/ (Metoprolol Tartrate 25 mg) 75 mg PO BID@0730,1930 [facility] Last Admin: 02/13/18 06:55 Dose: 75 mg Multivitamins/Minerals/Vitamin C (Tab-A-Vit -) 1 tab PO DAILY [facility] Potassium Chloride (K-Dur -) 10 meq PO DAILY [facility] Tiotropium [place] (Spiriva Respimat) 2 puff IH DAILY [facility] - Objective Vital Signs: Vital Signs Temperature 98.1 F 02/13/18 06:55 Pulse Rate 101 H 02/13/18 06:55 Respiratory Rate 18 02/13/18 06:55 Blood Pressure 129/66 02/13/18 06:55 O2 Sat by Pulse Oximetry (%) 90 L 02/13/18 03:16 Cardiovascular: Yes: S1, S2 Respiratory: Yes: Regular, CTA Bilaterally Gastrointestinal: Yes: Normal Bowel Sounds, Soft. No: Tenderness Extremities: Yes: Erythema (left leg) Wound/Incision: Yes: Open to air, Draining (minimal) Labs: CBC, BMP 02/13/18 06:30 02/13/18 06:30 INR, PTT INR 1.55 (0.83-1.09) H 02/12/18 18:20 Problem List - Problems (1) Cellulitis of left lower extremity Assessment/Plan: -IV ABX -CULTURES -ID CONSULT- -US NOTED--VASC CONSULT Code(s): L03.116 - CELLULITIS OF LEFT LOWER LIMB (2) COPD (chronic obstructive pulmonary disease) Assessment/Plan: -NEBS Code(s): J44.9 - CHRONIC OBSTRUCTIVE PULMONARY DISEASE, UNSPECIFIED (3) Left leg swelling Assessment/Plan: -DUPLEX NEG FOR DVT -ON ELIQUIS Code(s): M79.89 - OTHER SPECIFIED SOFT TISSUE DISORDERS (4) S/P CABG (coronary artery bypass graft) Assessment/Plan: -CARDIO CONSULT Code(s): Z95.1 - PRESENCE OF AORTOCORONARY BYPASS GRAFT (5) HTN (hypertension) Assessment/Plan: -MONITOR Code(s): I10 - ESSENTIAL (PRIMARY) HYPERTENSION (6) Atrial fibrillation Assessment/Plan: -RATE CONTROLLED -ELIQUIS Code(s): I48.91 - UNSPECIFIED ATRIAL FIBRILLATION
[2018-02-13] MEDS ORDERED: PT OWN MED DRAWER 7, Y5N ONE ×2 (09:33→17:13)
[2018-02-13] MEDS: MULTIVITAMINS (DAILY MVI) TABLET (FP) PO SCH (09:34)
[2018-02-13] MEDS: ASPIRIN 81 MG CHEWABLE TABLETS PO SCH (09:34)
[2018-02-13] MEDS: APIXABAN 5 MG TABLET PO SCH ×2 (09:34→22:16)
[2018-02-13] MEDS ORDERED: METOPROLOL TARTRATE 50 MG TABLET (FP) PO SCH (10:00)
[2018-02-13] MEDS ORDERED: POTASSIUM CHLORIDE TABS 10 MEQ TABLET.ER (FP) PO SCH (10:00)
[2018-02-13] MEDS: BUDESONIDE/FORMETEROL FUMARATE 160/4.5 mcg INHALER IH SCH ×2 (10:00→22:17)
[2018-02-13] MEDS: TIOTROPIUM BROMIDE 2.5 MCG (SPIRIVA) RESPIMAT INHALER IH SCH (10:00)
[2018-02-13] MEDS ORDERED: VANCOMYCIN 1,000 MG in DEXTROSE 5%-WATER - 250 ML IVPB SCH (10:00)
[2018-02-13] MEDS ORDERED: POTASSIUM CHLORIDE TABS 20 MEQ TABLET.ER (FP) PO ONE (11:00)
[2018-02-13] MEDS: KCL 10 MEQ IVPB 10 MEQ/100 ML INFUS.BAG IVPB SCH ×2 (11:02→14:54)
--- NOTE | 2018-02-13 12:02 | EKG ---
Test Reason : Blood Pressure : / mmHG Vent. Rate : 069 BPM Atrial Rate : 069 BPM P-R Int : 240 ms QRS Dur : 112 ms QT Int : 532 ms P-R-T Axes : 078 039 114 degrees QTc Int : 570 ms SINUS RHYTHM WITH 1ST DEGREE A-V BLOCK WITH PREMATURE SUPRAVENTRICULAR COMPLEXES LOW VOLTAGE QRS CANNOT RULE OUT ANTERIOR INFARCT (CITED ON OR BEFORE 04-APR-2015) ABNORMAL ECG WHEN COMPARED WITH ECG OF 08-FEB-2017 10:29, PREMATURE SUPRAVENTRICULAR COMPLEXES ARE NOW PRESENT MS INTERVAL HAS INCREASED T WAVE INVERSION NOW EVIDENT IN ANTERIOR LEADS QT HAS LENGTHENED Confirmed by FELA WAY, TANYA ([id number]) on 02/13/2018 12:02:21 PM Referred By: Confirmed By:TANYA CHAHAL MD
--- NOTE | 2018-02-13 13:15 | CONSULT ---
- Consultation REQUESTING PROVIDER: CONSULT REQUEST: We have been asked to surgically evaluate this patient for Left leg edema and collection s/p vein harvesting PCP:Danny Jimenez HISTORY OF PRESENT ILLNESS: 72yo man with history of HTN, HLD, COPD and CAD s/p recent CABG with LLE GSV harvest on 01/24/18 at [facility]. His postop course was complicated by development of a-fib for which he was discharged home with warfarin following his surgery, but he was instructed to stop taking it about a week ago when his INR was 8. He was recently switched to apixaban which he started yesterday. Patient noticed swelling in the left leg immediately after surgery, but it became progressively worse over the following days with some slight d/c from proximal incision site at the knee, He followed up with his PCP Dr. Jimenez and had wound cultures and was stared on keflex on 02/06/18. He was found to have a white count of 15 and the cultures grew skin darcy and pseudomonas. He was then advised by Tony's office to stop keflex and start cipro. Upon follow up on 02/12 there was concern for DVT and the patient was sent to the ER for full evaluation. A venous doppler of the left leg confirmed a collection in the left leg along the harvest site but no DVT. He denies any fever, CP, chills, Nausea or vomiting associated with onset of symptoms. PMHx: HTN, HLD, COPD CAD PSHx: CABG with LLE GSV harvest on 01/24/18 at [facility] Home Medications Medication Instructions Recorded Albuterol Sulfate Inhaler - 2 inh PO Q6H 02/12/18 [Ventolin Hfa Inhaler -] Amiodarone HCl 200 mg PO BID 02/12/18 Apixaban [Eliquis] 5 mg PO BID 02/12/18 Aspirin [ASA -] 81 mg PO DAILY 02/12/18 Atorvastatin Ca [Lipitor] 40 mg PO HS 02/12/18 Budesonide/Formeterol Fumarate 2 inh PO BID 02/12/18 [SYMBICORT 160/4.5mcg -] Calcium Carbonate [Super Calcium] 600 mg PO DAILY 02/12/18 Ciprofloxacin [Cipro (Restricted 500 mg PO Q12H 02/12/18 To Id)] Cyanocobalamin (Vitamin B-12) 1,000 mcg PO DAILY 02/12/18 [Vitamin B-12] Dutasteride [Avodart] 0.5 mg PO DAILY 02/12/18 Furosemide 40 mg PO BID 02/12/18 Multivitamin [One Daily] 1 each PO DAILY 02/12/18 Potassium Chloride [K-Tab ER] 10 meq PO DAILY 02/12/18 Tiotropium [place] [Spiriva 2 puff IH DAILY 02/12/18 Respimat] Metoprolol Tartrate 75 mg PO BID 02/13/18 Allergies Allergy/AdvReac Type Severity Reaction Status Date / Time No Known Allergies Allergy Verified 02/12/18 17:20 REVIEW OF SYSTEMS: CONSTITUTIONAL: Absent: fever, chills, diaphoresis, generalized weakness, malaise, loss of appetite, weight change CARDIOVASCULAR: Absent: chest pain, syncope, palpitations, + irregular heart rate, lightheadedness, + peripheral edema RESPIRATORY: Absent: + shortness of breath, + dyspnea with exertion, wheezing, stridor, hemoptysis GASTROINTESTINAL: Absent: abdominal pain, abdominal distension, nausea, vomiting, diarrhea, SKIN: Lower Extremities: + edema left leg Absent: rash, itching, pallor HEMATOLOGIC/IMMUNOLOGIC: Absent: easy bleeding, easy bruising, lymphadenopathy NEUROLOGIC: Absent: headache, focal weakness, paresthesias, dizziness, unsteady gait, seizure, mental status changes, bladder or bowel incontinence PSYCHIATRIC: Absent: anxiety, depression, suicidal or homicidal ideation, hallucinations. PHYSICAL EXAM: GENERAL: Awake, alert, and fully oriented, in no acute distress. HEAD: Normal with no signs of trauma. EYES: sclera anicteric, conjunctiva clear. LUNGS: Chest with healing midline incision, unlabored resp on RA with no accessory muscle use. UPPER EXTREMITIES: warm, well-perfused. No cyanosis. No peripheral edema. LOWER EXTREMITIES: Left leg with diffuse +3 pitting edema throughout extending from knee through foot. proximal knee incision scabbed over and healing with small central sinus area with scant yellow tinged d/c , small halo of erythema noted, but no evidence of tracking erythema collection or active d/c. distal harvest incision c/d/i and healing with no d/c or signs of infection. LE compartments tense with pitting edema but compressible with mild TTP over medial and posterior compartments. + dopplerable DP and PT pulses. Right LE mild peripheral edema +1 pitting edema, compartments soft, supple and non- tender to palpation. with +1 DP pulse. NEUROLOGICAL: Normal speech, gait not observed. PSYCH: Cooperative. Good eye contact. Appropriate mood and affect. SKIN: Warm, dry, normal turgor, no rashes or lesions noted. Vital Signs Temperature 98.0 F 02/13/18 10:00 Pulse Rate 102 H 02/13/18 10:00 Respiratory Rate 18 02/13/18 10:00 Blood Pressure 122/70 02/13/18 10:00 O2 Sat by Pulse Oximetry (%) 92 L 02/13/18 09:00 Lab Results WBC 11.6 K/mm3 (4.0-10.0) H 02/13/18 06:30 RBC 3.86 M/mm3 (4.00-5.60) L 02/13/18 06:30 Hgb 11.8 GM/dL (11.7-16.9) 02/13/18 06:30 Hct 36.5 % (35.4-49) 02/13/18 06:30 MCV 94.7 fl (80-96) 02/13/18 06:30 MCHC 32.4 g/dl (32.0-35.9) 02/13/18 06:30 RDW 14.0 % (11.9-15.9) 02/13/18 06:30 Plt Count 266 K/MM3 (134-434) 02/13/18 06:30 Sodium 140 mmol/L (136-145) 02/13/18 06:30 Potassium 2.9 mmol/L (3.5-5.1) L* 02/13/18 06:30 Chloride 104 mmol/L (98-107) 02/13/18 06:30 Carbon Dioxide 30 mmol/L (21-32) 02/13/18 06:30 Anion Gap 6 MMOL/L (8-16) L 02/13/18 06:30 BUN 11 mg/dL (7-18) 02/13/18 06:30 Creatinine 0.9 mg/dL (0.55-1.3) 02/13/18 06:30 Random Glucose 83 mg/dL (74-106) 02/13/18 06:30 Calcium 8.3 mg/dL (8.5-10.1) L 02/13/18 06:30 INR 1.55 (0.83-1.09) H 02/12/18 18:20 Venous Doppler left LE: Elliptical nonspecific fluid collection @ 2cm x 11cm extending from inferior knee to ankle (consistent with vein harvest site.) Problem List - Problems (1) Left leg swelling Assessment/Plan: 72yo with left LE edema and cellulites s/p CABG with saphenous vein graft. Left LE collection likely hematoma along harvest track after coumadin being supertheraputic. No indication for vascular intervention. 1) Compressive JAMAR wrap to left LE- home with compression stockings. 2) IV ABX per ID 3) Cardiology recommendations appreciated 4) anticoagulation per cardiology 5) OOb as tolerated 6) Elevate leg above level of heart when in bed 7) Santyl to leg leg wounds daily 8) reconsult vascular surgery as needed Evaluation and plan discussed with Dr Emerson. Code(s): M79.89 - OTHER SPECIFIED SOFT TISSUE DISORDERS
--- NOTE | 2018-02-13 14:56 | CON.ID ---
Consult Consult Specialty:: infectious disease Referred by:: dr paulino Reason for Consultation:: erythema left leg - History of Present Illness Chief Complaint: erythema left leg History of Present Illness: 72 yo man s/p cabg (3 vessel) at [facility] 01/24- developed postop afib, discharged home on 01/29 he was noted to have erythema of his left leg at the saphenous vein site and was started on keflex which he took for 5 days he had some drainage from the upper incision on his leg- wound cultue with pseudomonas shi sensitive- switched to cipro for two days no fevers started on vancomycin and zosyn last night thinks he notes some improvement duplex negative for dvt - History Source History Provided By: Patient, Medical Record Limitations to Obtaining History: No Limitations - Past Medical History Cardio/Vascular: Yes: CAD, HTN, Hyperlipdemia Endocrine: No: Diabetes Mellitus - Past Surgical History Past Surgical History: Yes: CABG - Alcohol/Substance Use Hx Alcohol Use: No - Smoking History Smoking history: Former smoker Have you smoked in the past 12 months: No If you are a former smoker, when did you quit?: 2014 - Social History Usual Living Arrangement: With Spouse ADL: Independent Place of : [facility] History of Recent Travel: No Home Medications - Allergies Allergies/Adverse Reactions: Allergies Allergy/AdvReac Type Severity Reaction Status Date / Time No Known Allergies Allergy Verified 02/12/18 17:20 - Home Medications Home Medications: Ambulatory Orders Albuterol Sulfate Inhaler - [Ventolin Hfa Inhaler -] 2 inh PO Q6H 02/12/18 Amiodarone HCl 200 mg PO BID 02/12/18 Apixaban [Eliquis] 5 mg PO BID 02/12/18 Aspirin [ASA -] 81 mg PO DAILY 02/12/18 Atorvastatin Ca [Lipitor] 40 mg PO HS 02/12/18 Budesonide/Formeterol Fumarate [SYMBICORT 160/4.5mcg -] 2 inh PO BID 02/12/18 Calcium Carbonate [Super Calcium] 600 mg PO DAILY 02/12/18 Ciprofloxacin [Cipro (Restricted To Id)] 500 mg PO Q12H 02/12/18 Cyanocobalamin (Vitamin B-12) [Vitamin B-12] 1,000 mcg PO DAILY 02/12/18 Dutasteride [Avodart] 0.5 mg PO DAILY 02/12/18 Furosemide 40 mg PO BID 02/12/18 Multivitamin [One Daily] 1 each PO DAILY 02/12/18 Potassium Chloride [K-Tab ER] 10 meq PO DAILY 02/12/18 Tiotropium [place] [Spiriva Respimat] 2 puff IH DAILY 02/12/18 Metoprolol Tartrate 75 mg PO BID 02/13/18 Family Disease History - Family Disease History Family History: Denies Review of Systems - Review of Systems Constitutional: denies: Chills, Diaphoresis, Fever Eyes: reports: No Symptoms HENT: reports: No Symptoms Neck: reports: No Symptoms Cardiovascular: reports: Edema Respiratory: denies: Cough Gastrointestinal: denies: Abdominal Pain Physical Exam Vital Signs: Vital Signs Temperature 97.7 F 02/13/18 14:46 Pulse Rate 98 H 02/13/18 14:46 Respiratory Rate 20 02/13/18 14:46 Blood Pressure 116/73 02/13/18 14:46 O2 Sat by Pulse Oximetry (%) 92 L 02/13/18 09:00 Constitutional: Yes: Well Nourished, No Distress Eyes: Yes: Conjunctiva Clear HENT: Yes: Atraumatic, Normocephalic Neck: Yes: Supple Cardiovascular: Yes: Regular Rate and Rhythm Respiratory: Yes: Regular, Diminished (left base) Gastrointestinal: Yes: Normal Bowel Sounds, Soft. No: Tenderness, Epigastrium Extremities: Yes: Erythema, Other (upper incision left leg with scant drainage- cultures, some erythema extending to the inner thigh) Edema: Yes Wound/Incision: Yes: Other (sternal wound no erythema, firm nontender mass at upper end) Psychiatric: Yes: Alert, Oriented Labs: CBC, BMP 02/13/18 06:30 02/13/18 06:30 Imaging - Results Ultrasound: Report Reviewed (fluid collection along the saphenous vein graft site, no DVT) Problem List - Problems (1) Cellulitis of left lower extremity Code(s): L03.116 - CELLULITIS OF LEFT LOWER LIMB (2) Fluid collection at surgical site Code(s): T88.8XXA - [facility] COMPLICATIONS OF SURGICAL AND MEDICAL CARE, NEC, INIT (3) S/P CABG (coronary artery bypass graft) Code(s): Z95.1 - PRESENCE OF AORTOCORONARY BYPASS GRAFT (4) Abnormal LFTs Code(s): R94.5 - ABNORMAL RESULTS OF LIVER FUNCTION STUDIES Assessment/Plan cultures outpt reviewed- vanco/cefepime repeat wound culture sent mrsa screen nares surgery to evaluate fluid collection- ?hematoma- inr was very elevated if no mrsa will d/c vancomycin await cardiology f/u abnl lfts- ?amiodarone
--- NOTE | 2018-02-13 15:31 | CON.CARD ---
Consult Consult Specialty:: Cardiology Referred by:: Dr. Jimenez Reason for Consultation:: LLE edema cellulitis, recent CABG - History of Present Illness Chief Complaint: LLE swelling discomfort redness History of Present Illness: 72 year old man pmh HTN, HLD, CAD CABG [facility] 01/24/18 CABGx3 (VALDEZ-LAD, SVG-Ramus , SVG-PDA) with SVG graft from LLE, post op Pafib on eliquis, COPD admitted with worsening erythema, LLE edema. Pt seen and examined today in nad. states that since his surgery he has had LLE edema which has gotten progressively worse. denies chest pain, sob aside from his copd, palpitations, pnd, orthopnea. no syncope or near syncope. Stress Test done in October 2017 showed severe stress induced ischemia involving the mid to basal inferolateral wall and apical to basal inferior camp. Cardiac cath 11/29/17 w Prox LAD to Mid LAD lesion, 80% stenosed. w Ramus lesion, 80% stenosed. w Prox Cx lesion, 80% stenosed. w Prox RCA lesion, 100% stenosed - History Source History Provided By: Patient, Medical Record Limitations to Obtaining History: No Limitations - Past Medical History Cardio/Vascular: Yes: AFIB, CAD, HTN, Hyperlipdemia Pulmonary: Yes: COPD Endocrine: No: Diabetes Mellitus - Past Surgical History Past Surgical History: Yes: CABG - Alcohol/Substance Use Hx Alcohol Use: No - Smoking History Smoking history: Former smoker Have you smoked in the past 12 months: No If you are a former smoker, when did you quit?: 2014 - Social History Usual Living Arrangement: With Spouse ADL: Independent History of Recent Travel: No Home Medications - Allergies Allergies/Adverse Reactions: Allergies Allergy/AdvReac Type Severity Reaction Status Date / Time No Known Allergies Allergy Verified 02/12/18 17:20 - Home Medications Home Medications: Ambulatory Orders Albuterol Sulfate Inhaler - [Ventolin Hfa Inhaler -] 2 inh PO Q6H 02/12/18 Amiodarone HCl 200 mg PO BID 02/12/18 Apixaban [Eliquis] 5 mg PO BID 02/12/18 Aspirin [ASA -] 81 mg PO DAILY 02/12/18 Atorvastatin Ca [Lipitor] 40 mg PO HS 02/12/18 Budesonide/Formeterol Fumarate [SYMBICORT 160/4.5mcg -] 2 inh PO BID 02/12/18 Calcium Carbonate [Super Calcium] 600 mg PO DAILY 02/12/18 Ciprofloxacin [Cipro (Restricted To Id)] 500 mg PO Q12H 02/12/18 Cyanocobalamin (Vitamin B-12) [Vitamin B-12] 1,000 mcg PO DAILY 02/12/18 Dutasteride [Avodart] 0.5 mg PO DAILY 02/12/18 Furosemide 40 mg PO BID 02/12/18 Multivitamin [One Daily] 1 each PO DAILY 02/12/18 Potassium Chloride [K-Tab ER] 10 meq PO DAILY 02/12/18 Tiotropium [place] [Spiriva Respimat] 2 puff IH DAILY 02/12/18 Metoprolol Tartrate 75 mg PO BID 02/13/18 Family Disease History - Family Disease History Family History: Denies Review of Systems - Review of Systems Constitutional: denies: No Symptoms, Chills, Diaphoresis, Fever, Lethargy, Loss of Appetite, Malaise, Night Sweats, Unintentional Wgt. Loss, Weakness, Other Eyes: denies: No Symptoms, Blind Spots, Blurred Vision, Double Vision, Eye Pain , Floaters, Photophobia, Recent Change in Vision, Other HENT: denies: No Symptoms, Difficult Swallowing, Ear Discharge, Ear Pain, Epistaxis, Gingival Bleeding, Hearing Loss, Mouth Swelling, Nasal Congestion, Ocular Prosthesis, Throat Pain, Toothache, Ringing in Ears, Other Neck: denies: No Symptoms, Decreased ROM, Lumps, Pain on Movement, Stiffness, Swollen Glands, Tenderness, Other Cardiovascular: reports: Shortness of Breath. denies: No Symptoms, Chest Pain, Edema, Palpitations, Other Respiratory: reports: SOB, SOB on Exertion. denies: No Symptoms, Cough, Exercise Intolerance, Hemoptysis, Orthopnea, PND, Snoring, Wheezing, Other Gastrointestinal: denies: No Symptoms, Abdominal Pain, Bloating, Constipation, Diarrhea, Dysphagia, Indigestion, Melena, Nausea, Rectal Bleeding, Vomiting, Vomiting Blood, Other Genitourinary: denies: No Symptoms, Burning, Discharge, Dysuria, Flank Pain, Frequency, Hematuria, Incontinence, Lesions, Menses, Pain, Testicular Mass, Testicular Pain, Testicular Swelling, Urgency, Vaginal Bleeding, Other Breasts: denies: No Symptoms Reported, See HPI, Breast Implants, Discharge from Nipple, Lumps, Pain, Skin Changes, Other Musculoskeletal: reports: Extremity Pain. denies: No Symptoms, Back Pain, Crepitus, Decreased ROM, Joint Pain, Joint Swelling, Muscle Pain, Muscle Cramps , Muscle Weakness, Other Integumentary: reports: Erythema. denies: No Symptoms, Blister, Bruising, Change in Color, Eczema, Incision, Lesions, Lump, Pallor, Pruritis, Rash, Wound , Other Neurological: denies: No Symptoms, Change in LOC, Change in Speech, Confusion, Dizziness, Headache, Incoordination, Numbness, Parasthesia, Pre-Existing Deficit , Seizure, Syncope, Tremors, Unsteady Gait, Weakness, Other Endocrine: denies: No Symptoms, Excessive Sweating, Flushing, Increased Hunger, Increased Thirst, Intolerance to Cold, Intolerance to Heat, Unexplained Weight Gain, Unexplained Weight Loss, Other Hematology/Lymphatic: denies: No Symptoms, Easily Bruised, Excessive Bleeding, Swollen Glands, Other Psychiatric: denies: No Symptoms, Altered Sleep Pattern, Anxiety, Depression, Hallucinations, Panic, Paranoia, Suicidal, Other - Risk Factors Known Risk Factors: Yes: Hypercholesterolemia, Hypertension Vital Signs: Vital Signs Temperature 97.7 F 02/13/18 14:46 Pulse Rate 98 H 02/13/18 14:46 Respiratory Rate 20 02/13/18 14:46 Blood Pressure 116/73 02/13/18 14:46 O2 Sat by Pulse Oximetry (%) 92 L 02/13/18 09:00 Constitutional: Yes: No Distress, Calm Eyes: Yes: Conjunctiva Clear, EOM Intact, PERRL HENT: Yes: Atraumatic, Normocephalic Neck: Yes: Supple, Trachea Midline Respiratory: Yes: Regular, Diminished. No: Rales, Rhonchi, Wheezes Gastrointestinal: Yes: Normal Bowel Sounds, Soft. No: Distention, Tenderness Cardiovascular: Yes: Pulse Irregular. No: Regular Rate and Rhythm, Bradycardia , Tachycardia, Gallop, Rub JVD: No Carotid Bruit: No PMI: Non-Displaced Heart Sounds: Yes: S1, S2. No: Split S2, S3, S4, Clicks, Gallop, Rub, Bruit Murmur: No: Systolic Murmur Edema: Yes Edema: LLE: 1+, RLE: Trace Peripheral Pulses WNL: Yes Peripheral Pulses: 2+ Left Doralis Pedis, 2+ Right Dorsalis Pedis Neurological: Yes: Alert, Oriented Psychiatric: Yes: Alert, Oriented - Other Data Labs, Other Data: CBC, BMP 02/13/18 06:30 02/13/18 06:30 INR, PTT INR 1.55 (0.83-1.09) H 02/12/18 18:20 ekg-nsr 69bpm, 1st deg avb, poor R progression, possible anterior infarct Echo: Report Reviewed Prior Cardiac Procedures: CABG, Cardiac Catheterization Imaging - Results Chest X-ray: Report Reviewed, Image Reviewed EKG: Report Reviewed, Image Reviewed Other: Report Reviewed, Image Reviewed Assessment/Plan 72 year old man pmh HTN, HLD, CAD CABG [facility] 01/24/18 CABGx3 (VALDEZ-LAD, SVG-Ramus , SVG-PDA) with SVG graft from LLE, post op Pafib on eliquis, COPD admitted with worsening erythema, LLE edema. Pt seen and examined today in nad. states that since his surgery he has had LLE edema which has gotten progressively worse. denies chest pain, sob aside from his copd, palpitations, pnd, orthopnea. no syncope or near syncope. Stress Test done in October 2017 showed severe stress induced ischemia involving the mid to basal inferolateral wall and apical to basal inferior camp. Cardiac cath 11/29/17 Prox LAD to Mid LAD lesion, 80% stenosed. Ramus lesion, 80% stenosed. Prox Cx lesion, 80% stenosed. Prox RCA lesion, 100% stenosed LLE edema -venous insufficiency secondary to SVG graft harvesting vs hematoma, cellulitis -pt was treated with ABx as outpatient initially but did not improve -he was also reportedly on warfarin initially but as outpatient found to have supratherapeutic INR of 8-9 -Vascular consult felt LLE edema was likely at least in part due to hematoma secondary to supratherapeutic INR -pt also has mild RLE edema -cont Lasix 40mg po bid, would not aggressively diurese -agree with compression dressing, recc Leg elevation -if needed can stop Eliquis until safe to resume -receiving Abx for cellulitis/wound infection CAD s/p CABG as above -stable -cont home meds Afib-HR controlled -cont amiodarone and metoprolol -cont Eliquis as long as safe, if needs to be held due to hematoma can do so and plan to resume when safe will follow
[2018-02-13] MEDS ORDERED: CEFEPIME HCL 1 GM VIAL (RESTRICTED TO ID) ONE (16:41)
[2018-02-13] MEDS ORDERED: DEXTROSE 5%-WATER - 50 ML IVPB ONE (16:41)
[2018-02-13] MEDS: CEFEPIME 1 GM in DEXTROSE 5%-WATER - 50 ML IVPB SCH ×2 (17:06→18:34)
[2018-02-13] MEDS: VANCOMYCIN 1 GRAM (PRE-DOCKED) 1,000 MG/250 ML BAG IVPB SCH (17:09)
[2018-02-13] MEDS: DUTASTERIDE 0.5 MG CAP (FP) PO SCH (18:36)
[2018-02-13] MEDS: ATORVASTATIN CA 40 MG TABLET (FP) PO SCH (22:16)
[2018-02-13] MEDS: POTASSIUM CHLORIDE TABS 20 MEQ TABLET.ER (FP) PO SCH (22:16)
[2018-02-14] MEDS ORDERED: CEFEPIME HCL 1 GM VIAL (RESTRICTED TO ID) ONE ×3 (02:47→20:04)
[2018-02-14] MEDS ORDERED: DEXTROSE 5%-WATER - 50 ML IVPB ONE ×3 (02:47→20:04)
[2018-02-14] MEDS: VANCOMYCIN 1 GRAM (PRE-DOCKED) 1,000 MG/250 ML BAG IVPB SCH ×2 (02:57→18:08)
[2018-02-14] MEDS: CEFEPIME 1 GM in DEXTROSE 5%-WATER - 50 ML IVPB SCH ×3 (02:57→20:25)
[2018-02-14] MEDS ORDERED: METOPROLOL TARTRATE 50 MG TABLET (FP) ONE ×2 (06:51→18:51)
[2018-02-14] MEDS ORDERED: METOPROLOL TARTRATE 25 MG TABLET (FP) ONE ×2 (06:52→18:52)
[2018-02-14] MEDS: FUROSEMIDE 40 MG TABLET (FP) PO SCH ×2 (07:03→15:06)
[2018-02-14] MEDS: AMIODARONE HCL 200 MG TABLET (FP) PO SCH ×2 (07:03→19:08)
[2018-02-14] MEDS: METOPROLOL TARTRATE 50 MG, METOPROLOL TARTRATE 25 MG PO SCH ×2 (07:03→19:08)
[2018-02-14] MEDS ORDERED: INSULIN (NOVOLOG) ASPART 100 UNITS/ML 10ML VIAL ONE (08:07)
[2018-02-14 08:13] LABS: BASO % 0.6 % (0-2.0); EOS % 2.7 % (0-4.5); HEMATOCRIT 36.8 % (35.4-49); HEMOGLOBIN 11.9 GM/dL (11.7-16.9); LYMPH % 12.2 % (8-40); MCHC 32.5 g/dl (32.0-35.9); MEAN CELL VOLUME 95.4 fl (80-96); MEAN PLT VOLUME 8.8 fl (7.5-11.1); MONO % 9.4 % (3.8-10.2); NEUT % 75.1 % (42.8-82.8); PLATELET COUNT 249 K/MM3 (134-434); RBC 3.85 M/mm3 (4.00-5.60); RDW 14.5 % (11.9-15.9); WHITE BLOOD COUNT 10.6 K/mm3 (4.0-10.0)
[2018-02-14 08:43] LABS: ALK PHOS 106 U/L (45-117); ANION GAP 9 MMOL/L (8-16); BILIRUBIN,TOTAL 0.9 mg/dL (0.2-1); BLOOD UREA NITROGEN 11 mg/dL (7-18); CALCIUM 8.3 mg/dL (8.5-10.1); CHLORIDE 105 mmol/L (98-107); CO2 29 mmol/L (21-32); CREATININE 0.9 mg/dL (0.55-1.3); GLUCOSE,RANDOM 93 mg/dL (74-106); POTASSIUM 3.3 mmol/L (3.5-5.1); SGOT/AST 39 U/L (15-37); SGPT/ALT 74 U/L (13-61); SODIUM 143 mmol/L (136-145); TOT PROT 5.7 g/dl (6.4-8.2)
[2018-02-14] MEDS ORDERED: PT OWN MED DRAWER 7, Y5N ONE (09:15)
[2018-02-14] MEDS: TIOTROPIUM BROMIDE 2.5 MCG (SPIRIVA) RESPIMAT INHALER IH SCH (09:30)
[2018-02-14] MEDS: APIXABAN 5 MG TABLET PO SCH ×2 (09:30→21:23)
[2018-02-14] MEDS: POTASSIUM CHLORIDE TABS 20 MEQ TABLET.ER (FP) PO SCH ×2 (09:30→21:23)
[2018-02-14] MEDS: MULTIVITAMINS (DAILY MVI) TABLET (FP) PO SCH (09:30)
[2018-02-14] MEDS: ASPIRIN 81 MG CHEWABLE TABLETS PO SCH (09:30)
[2018-02-14] MEDS: DUTASTERIDE 0.5 MG CAP (FP) PO SCH (09:31)
--- NOTE | 2018-02-14 13:02 | PN ---
Progress Note, Physician Chief Complaint: patient seen and examined on iv abx and po lasix for edema/cellutlits - Current Medication List Current Medications: Active Medications Albuterol Sulfate (Ventolin Hfa Inhaler -) 2 puff IH Q6H PRN PRN Reason: SHORT OF BREATH/WHEEZING Amiodarone HCl (Cordarone -) 200 mg PO BID@0730,1930 [facility] Last Admin: 02/14/18 07:03 Dose: 200 mg Apixaban (Eliquis -) 5 mg PO BID [facility] Last Admin: 02/14/18 09:30 Dose: 5 mg Aspirin (Asa -) 81 mg PO DAILY [facility] Last Admin: 02/14/18 09:30 Dose: 81 mg Atorvastatin Calcium (Lipitor -) 40 mg PO HS [facility] Last Admin: 02/13/18 22:16 Dose: 40 mg Budesonide/Formoterol Fumarate (Symbicort 160/4.5mcg -) 2 puff IH BID [facility] Last Admin: 02/13/18 22:17 Dose: 2 puff Dutasteride (Avodart -) 0.5 mg PO DAILY [facility] Last Admin: 02/14/18 09:31 Dose: 0.5 mg Furosemide (Lasix -) 40 mg PO BID@0600,1400 [facility] Vancomycin HCl (Vancomycin (Pre-Docked)) 1,000 mg in 250 mls @ 166.667 mls/hr IVPB Q12H [facility]; Protocol Last Admin: 02/14/18 02:57 Dose: 166.667 mls/hr Cefepime HCl 1 gm/ Dextrose 50 mls @ 100 mls/hr IVPB Q8H-IV [facility]; Protocol Last Admin: 02/14/18 09:32 Dose: 100 mls/hr Metoprolol Tartrate 50 mg/ (Metoprolol Tartrate 25 mg) 75 mg PO BID@0730,1930 [facility] Last Admin: 02/14/18 07:03 Dose: 75 mg Multivitamins/Minerals/Vitamin C (Tab-A-Vit -) 1 tab PO DAILY [facility] Last Admin: 02/14/18 09:30 Dose: 1 tab Potassium Chloride (K-Dur -) 20 meq PO BID [facility] Last Admin: 02/14/18 09:30 Dose: 20 meq Tiotropium [place] (Spiriva Respimat) 2 puff IH DAILY [facility] Last Admin: 02/13/18 10:00 Dose: 2 puff - Objective Vital Signs: Vital Signs Temperature 98.3 F 02/14/18 06:00 Pulse Rate 76 02/14/18 06:00 Respiratory Rate 20 02/14/18 06:00 Blood Pressure 134/78 02/14/18 06:00 O2 Sat by Pulse Oximetry (%) 96 02/13/18 21:00 Constitutional: Yes: Calm Cardiovascular: Yes: Regular Rate and Rhythm, S1, S2 Respiratory: Yes: CTA Bilaterally Gastrointestinal: Yes: Normal Bowel Sounds, Soft Extremities: Yes: Erythema Edema: Yes Edema: LLE: 2+ Neurological: Yes: Alert, Oriented Labs: CBC, BMP 02/14/18 07:05 02/14/18 07:05 INR, PTT INR 1.55 (0.83-1.09) H 02/12/18 18:20 Problem List - Problems (1) Atrial fibrillation Assessment/Plan: amiodarone and eliquis Code(s): I48.91 - UNSPECIFIED ATRIAL FIBRILLATION (2) CAD (coronary artery disease) Assessment/Plan: aspirin,lipitor and metoprolol Code(s): I25.10 - ATHSCL HEART DISEASE OF [place] CORONARY ARTERY W/O ANG PCTRS (3) COPD (chronic obstructive pulmonary disease) Assessment/Plan: bronchodilators Code(s): J44.9 - CHRONIC OBSTRUCTIVE PULMONARY DISEASE, UNSPECIFIED (4) Cellulitis of left lower extremity Assessment/Plan: iv abx Code(s): L03.116 - CELLULITIS OF LEFT LOWER LIMB (5) Left leg swelling Assessment/Plan: lasix negative duplex for dvt Code(s): M79.89 - OTHER SPECIFIED SOFT TISSUE DISORDERS (6) S/P CABG (coronary artery bypass graft) Assessment/Plan: asa,statin bb Code(s): Z95.1 - PRESENCE OF AORTOCORONARY BYPASS GRAFT (7) Hypokalemia Assessment/Plan: repleted check magnesium Code(s): E87.6 - HYPOKALEMIA
[2018-02-14] MEDS ORDERED: FUROSEMIDE 40 MG/4 ML INJECTABLE VIAL IVPUSH SCH (14:00)
[2018-02-14] MEDS: BUDESONIDE/FORMETEROL FUMARATE 160/4.5 mcg INHALER IH SCH ×2 (15:09→21:26)
--- NOTE | 2018-02-14 16:09 | PN ---
Progress Note, Physician Chief Complaint: No chest pain or sob History of Present Illness: 72 year old man pmh HTN, HLD, CAD CABG [facility] 01/24/18 CABGx3 (VALDEZ-LAD, SVG-Ramus , SVG-PDA) with SVG graft from LLE, post op Pafib on eliquis, COPD admitted with worsening erythema, LLE edema. Pt seen and examined today in nad. states that since his surgery he has had LLE edema which has gotten progressively worse. denies chest pain, sob aside from his copd, palpitations, pnd, orthopnea. no syncope or near syncope. Stress Test done in October 2017 showed severe stress induced ischemia involving the mid to basal inferolateral wall and apical to basal inferior camp. Cardiac cath 11/29/17 Prox LAD to Mid LAD lesion, 80% stenosed. Ramus lesion, 80% stenosed. Prox Cx lesion, 80% stenosed. Prox RCA lesion, 100% stenosed - Current Medication List Current Medications: Active Medications Albuterol Sulfate (Ventolin Hfa Inhaler -) 2 puff IH Q6H PRN PRN Reason: SHORT OF BREATH/WHEEZING Amiodarone HCl (Cordarone -) 200 mg PO BID@0730,1930 [facility] Last Admin: 02/14/18 07:03 Dose: 200 mg Apixaban (Eliquis -) 5 mg PO BID [facility] Last Admin: 02/14/18 09:30 Dose: 5 mg Aspirin (Asa -) 81 mg PO DAILY [facility] Last Admin: 02/14/18 09:30 Dose: 81 mg Atorvastatin Calcium (Lipitor -) 40 mg PO HS [facility] Last Admin: 02/13/18 22:16 Dose: 40 mg Budesonide/Formoterol Fumarate (Symbicort 160/4.5mcg -) 2 puff IH BID [facility] Last Admin: 02/14/18 15:09 Dose: 2 puff Dutasteride (Avodart -) 0.5 mg PO DAILY [facility] Last Admin: 02/14/18 09:31 Dose: 0.5 mg Furosemide (Lasix -) 40 mg PO BID@0600,1400 [facility] Last Admin: 02/14/18 15:06 Dose: 40 mg Vancomycin HCl (Vancomycin (Pre-Docked)) 1,000 mg in 250 mls @ 166.667 mls/hr IVPB Q12H [facility]; Protocol Last Admin: 02/14/18 02:57 Dose: 166.667 mls/hr Cefepime HCl 1 gm/ Dextrose 50 mls @ 100 mls/hr IVPB Q8H-IV [facility]; Protocol Last Admin: 02/14/18 09:32 Dose: 100 mls/hr Metoprolol Tartrate 50 mg/ (Metoprolol Tartrate 25 mg) 75 mg PO BID@0730,1930 [facility] Last Admin: 02/14/18 07:03 Dose: 75 mg Multivitamins/Minerals/Vitamin C (Tab-A-Vit -) 1 tab PO DAILY [facility] Last Admin: 02/14/18 09:30 Dose: 1 tab Potassium Chloride (K-Dur -) 20 meq PO BID [facility] Last Admin: 02/14/18 09:30 Dose: 20 meq Tiotropium [place] (Spiriva Respimat) 2 puff IH DAILY [facility] Last Admin: 02/14/18 09:30 Dose: 2 puff - Objective Vital Signs: Vital Signs Temperature 97.4 F L 02/14/18 14:23 Pulse Rate 70 02/14/18 14:23 Respiratory Rate 20 02/14/18 14:23 Blood Pressure 111/60 02/14/18 14:23 O2 Sat by Pulse Oximetry (%) 96 02/13/18 21:00 Constitutional: Yes: No Distress Neck: Yes: Supple Cardiovascular: Yes: Pulse Irregular, S1, S2. No: JVD Respiratory: Yes: CTA Bilaterally Gastrointestinal: Yes: Soft Edema: LLE: 1+, RLE: Trace Labs: CBC, BMP 02/14/18 07:05 02/14/18 07:05 INR, PTT INR 1.55 (0.83-1.09) H 02/12/18 18:20 Problem List - Problems (1) Atrial fibrillation Code(s): I48.91 - UNSPECIFIED ATRIAL FIBRILLATION (2) CAD (coronary artery disease) Code(s): I25.10 - ATHSCL HEART DISEASE OF [place] CORONARY ARTERY W/O ANG PCTRS Assessment/Plan 72 year old man pmh HTN, HLD, CAD CABG [facility] 01/24/18 CABGx3 (VALDEZ-LAD, SVG-Ramus , SVG-PDA) with SVG graft from LLE, post op Pafib on eliquis, COPD admitted with worsening erythema, LLE edema. Pt seen and examined today in nad. states that since his surgery he has had LLE edema which has gotten progressively worse. denies chest pain, sob aside from his copd, palpitations, pnd, orthopnea. no syncope or near syncope. Stress Test done in October 2017 showed severe stress induced ischemia involving the mid to basal inferolateral wall and apical to basal inferior camp. Cardiac cath 11/29/17 Prox LAD to Mid LAD lesion, 80% stenosed. Ramus lesion, 80% stenosed. Prox Cx lesion, 80% stenosed. Prox RCA lesion, 100% stenosed LLE edema -venous insufficiency with possible cellulitis vs hematoma -On IV antibiotics as per primary team --Vascular consult felt LLE edema was likely at least in part due to hematoma secondary to supratherapeutic INR -pt also has mild RLE edema -cont Lasix 40mg po bid -agree with compression dressing, recc Leg elevation -if needed can stop Eliquis until safe to resume CAD s/p CABG as above -stable -cont home meds Afib-HR controlled -cont amiodarone and metoprolol -cont Eliquis as long as safe, if needs to be held due to hematoma can do so and plan to resume when safe
--- NOTE | 2018-02-14 16:12 | PN ---
Progress Note (short form) - Note Progress Note: still some erythema of the left lower extremity Vital Signs Period Temp Pulse Resp BP Sys/[place] Pulse Ox Last 24 Hr 97.4 F-98.5 F 70-98 20-20 111-134/60-78 96 cor-rrr lungs decreased bs left base abd soft,nt LLE- both graft sites dry no drainage +edema +erythema CBC, BMP 02/14/18 07:05 02/14/18 07:05 Microbiology 02/12/18 19:30 Urine - Urine Clean Catch Urine Culture - Final NO GROWTH OBTAINED 02/12/18 18:00 Blood - Peripheral Venous Blood Culture - Preliminary NO GROWTH OBTAINED AFTER 24 HOURS, INCUBATION TO CONTINUE FOR 4 DAYS. 02/12/18 18:20 Blood - Peripheral Venous Blood Culture - Preliminary NO GROWTH OBTAINED AFTER 24 HOURS, INCUBATION TO CONTINUE FOR 4 DAYS. Current Medications Albuterol Sulfate (Ventolin Hfa Inhaler -) 2 puff IH Q6H PRN PRN Reason: SHORT OF BREATH/WHEEZING Amiodarone HCl (Cordarone -) 200 mg PO BID@0730,1930 [facility] Last Admin: 02/14/18 07:03 Dose: 200 mg Apixaban (Eliquis -) 5 mg PO BID [facility] Last Admin: 02/14/18 09:30 Dose: 5 mg Aspirin (Asa -) 81 mg PO DAILY [facility] Last Admin: 02/14/18 09:30 Dose: 81 mg Atorvastatin Calcium (Lipitor -) 40 mg PO HS [facility] Last Admin: 02/13/18 22:16 Dose: 40 mg Budesonide/Formoterol Fumarate (Symbicort 160/4.5mcg -) 2 puff IH BID [facility] Last Admin: 02/14/18 15:09 Dose: 2 puff Dutasteride (Avodart -) 0.5 mg PO DAILY [facility] Last Admin: 02/14/18 09:31 Dose: 0.5 mg Furosemide (Lasix -) 40 mg PO BID@0600,1400 [facility] Last Admin: 02/14/18 15:06 Dose: 40 mg Vancomycin HCl (Vancomycin (Pre-Docked)) 1,000 mg in 250 mls @ 166.667 mls/hr IVPB Q12H [facility]; Protocol Last Admin: 02/14/18 02:57 Dose: 166.667 mls/hr Cefepime HCl 1 gm/ Dextrose 50 mls @ 100 mls/hr IVPB Q8H-IV [facility]; Protocol Last Admin: 02/14/18 09:32 Dose: 100 mls/hr Metoprolol Tartrate 50 mg/ (Metoprolol Tartrate 25 mg) 75 mg PO BID@0730,1930 [facility] Last Admin: 02/14/18 07:03 Dose: 75 mg Multivitamins/Minerals/Vitamin C (Tab-A-Vit -) 1 tab PO DAILY [facility] Last Admin: 02/14/18 09:30 Dose: 1 tab Potassium Chloride (K-Dur -) 20 meq PO BID [facility] Last Admin: 02/14/18 09:30 Dose: 20 meq Tiotropium [place] (Spiriva Respimat) 2 puff IH DAILY [facility] Last Admin: 02/14/18 09:30 Dose: 2 puff a/p cellulitis continue vanco/cefepime prior wound culture with pseudomonas check cutures, check vancomycin trough s/p cabg history afib Problem List - Problems (1) Cellulitis of left lower extremity Code(s): L03.116 - CELLULITIS OF LEFT LOWER LIMB (2) Fluid collection at surgical site Code(s): T88.8XXA - OTH COMPLICATIONS OF SURGICAL AND MEDICAL CARE, NEC, INIT (3) S/P CABG (coronary artery bypass graft) Code(s): Z95.1 - PRESENCE OF AORTOCORONARY BYPASS GRAFT (4) Abnormal LFTs Code(s): R94.5 - ABNORMAL RESULTS OF LIVER FUNCTION STUDIES
[2018-02-14] MEDS: ATORVASTATIN CA 40 MG TABLET (FP) PO SCH (21:25)
[2018-02-15] MEDS ORDERED: CEFEPIME HCL 1 GM VIAL (RESTRICTED TO ID) ONE ×3 (01:17→18:32)
[2018-02-15] MEDS ORDERED: DEXTROSE 5%-WATER - 50 ML IVPB ONE ×3 (01:17→18:33)
[2018-02-15] MEDS: CEFEPIME 1 GM in DEXTROSE 5%-WATER - 50 ML IVPB SCH ×3 (02:35→18:41)
[2018-02-15] MEDS: VANCOMYCIN 1 GRAM (PRE-DOCKED) 1,000 MG/250 ML BAG IVPB SCH ×2 (03:04→14:51)
[2018-02-15] MEDS ORDERED: METOPROLOL TARTRATE 50 MG TABLET (FP) ONE ×2 (06:34→18:31)
[2018-02-15] MEDS ORDERED: METOPROLOL TARTRATE 25 MG TABLET (FP) ONE ×2 (06:35→18:32)
[2018-02-15] MEDS: FUROSEMIDE 40 MG TABLET (FP) PO SCH ×2 (06:53→14:51)
[2018-02-15] MEDS: AMIODARONE HCL 200 MG TABLET (FP) PO SCH ×2 (06:53→18:39)
[2018-02-15] MEDS: METOPROLOL TARTRATE 50 MG, METOPROLOL TARTRATE 25 MG PO SCH ×2 (06:54→18:39)
[2018-02-15] MEDS: BUDESONIDE/FORMETEROL FUMARATE 160/4.5 mcg INHALER IH SCH ×4 (06:54→22:19)
[2018-02-15] MEDS: TIOTROPIUM BROMIDE 2.5 MCG (SPIRIVA) RESPIMAT INHALER IH SCH ×2 (06:54→10:47)
[2018-02-15 07:49] LABS: BASO % 0.5 % (0-2.0); EOS % 2.9 % (0-4.5); HEMATOCRIT 39.7 % (35.4-49); HEMOGLOBIN 12.5 GM/dL (11.7-16.9); LYMPH % 13.4 % (8-40); MCH 30.3 pg (25.7-33.7); MCHC 31.4 g/dl (32.0-35.9); MEAN CELL VOLUME 96.4 fl (80-96); MEAN PLT VOLUME 8.6 fl (7.5-11.1); NEUT % 73.2 % (42.8-82.8); PLATELET COUNT 234 K/MM3 (134-434); RBC 4.12 M/mm3 (4.00-5.60); RDW 14.7 % (11.9-15.9); WHITE BLOOD COUNT 11.3 K/mm3 (4.0-10.0)
[2018-02-15 08:21] LABS: ALBUMIN 3.1 g/dl (3.4-5.0); ALK PHOS 105 U/L (45-117); ANION GAP 6 MMOL/L (8-16); BILIRUBIN,TOTAL 0.9 mg/dL (0.2-1); BLOOD UREA NITROGEN 12 mg/dL (7-18); CALCIUM 8.7 mg/dL (8.5-10.1); CHLORIDE 100 mmol/L (98-107); CO2 33 mmol/L (21-32); CREATININE 0.9 mg/dL (0.55-1.3); GLUCOSE,RANDOM 87 mg/dL (74-106); POTASSIUM 3.7 mmol/L (3.5-5.1); SGOT/AST 37 U/L (15-37); SGPT/ALT 70 U/L (13-61); SODIUM 139 mmol/L (136-145); TOT PROT 6.1 g/dl (6.4-8.2)
[2018-02-15] MEDS ORDERED: PT OWN MED DRAWER 7, Y5N ONE ×2 (10:28→18:32)
[2018-02-15] MEDS: POTASSIUM CHLORIDE TABS 20 MEQ TABLET.ER (FP) PO SCH ×2 (10:35→22:19)
[2018-02-15] MEDS: APIXABAN 5 MG TABLET PO SCH ×2 (10:36→22:19)
[2018-02-15] MEDS: MULTIVITAMINS (DAILY MVI) TABLET (FP) PO SCH (10:36)
[2018-02-15] MEDS: DUTASTERIDE 0.5 MG CAP (FP) PO SCH (10:36)
[2018-02-15] MEDS: ASPIRIN 81 MG CHEWABLE TABLETS PO SCH (10:36)
--- NOTE | 2018-02-15 16:14 | PN ---
Progress Note, Physician Chief Complaint: Patient appears comfortable at the time of exam. He reports no chest pain, SOB or palpitation. History of Present Illness: 72 year old man a PMHx of HTN, HLD, CAD s/p CABGx3 on 01/24/2018 at [facility] with VALDEZ-LAD, SVG-Ramus, SVG-PDA) with SVG graft from LLE, post op Pafib on Eliquis, COPD admitted with worsening LLE erythema and edema. - Current Medication List Current Medications: Active Medications Albuterol Sulfate (Ventolin Hfa Inhaler -) 2 puff IH Q6H PRN PRN Reason: SHORT OF BREATH/WHEEZING Amiodarone HCl (Cordarone -) 200 mg PO BID@ [facility] Last Admin: 02/15/18 06:53 Dose: 200 mg Apixaban (Eliquis -) 5 mg PO BID [facility] Last Admin: 02/15/18 10:36 Dose: 5 mg Aspirin (Asa -) 81 mg PO DAILY [facility] Last Admin: 02/15/18 10:36 Dose: 81 mg Atorvastatin Calcium (Lipitor -) 40 mg PO HS [facility] Last Admin: 02/14/18 21:25 Dose: 40 mg Budesonide/Formoterol Fumarate (Symbicort 160/4.5mcg -) 2 puff IH BID [facility] Last Admin: 02/15/18 10:48 Dose: Not Given Dutasteride (Avodart -) 0.5 mg PO DAILY [facility] Last Admin: 02/15/18 10:36 Dose: 0.5 mg Furosemide (Lasix -) 40 mg PO BID@0600,1400 [facility] Last Admin: 02/15/18 14:51 Dose: 40 mg Vancomycin HCl (Vancomycin (Pre-Docked)) 1,000 mg in 250 mls @ 166.667 mls/hr IVPB Q12H [facility]; Protocol Last Admin: 02/15/18 14:51 Dose: 166.667 mls/hr Cefepime HCl 1 gm/ Dextrose 50 mls @ 100 mls/hr IVPB Q8H-IV [facility]; Protocol Last Admin: 02/15/18 10:32 Dose: 100 mls/hr Metoprolol Tartrate 50 mg/ (Metoprolol Tartrate 25 mg) 75 mg PO BID@ [facility] Last Admin: 02/15/18 06:54 Dose: 75 mg Multivitamins/Minerals/Vitamin C (Tab-A-Vit -) 1 tab PO DAILY [facility] Last Admin: 02/15/18 10:36 Dose: 1 tab Potassium Chloride (K-Dur -) 20 meq PO BID [facility] Last Admin: 02/15/18 10:35 Dose: 20 meq Tiotropium [place] (Spiriva Respimat) 2 puff IH DAILY [facility] Last Admin: 02/15/18 10:47 Dose: Not Given - Objective Vital Signs: Vital Signs Temperature 98.3 F 02/15/18 14:45 Pulse Rate 68 02/15/18 14:45 Respiratory Rate 20 02/15/18 14:45 Blood Pressure 113/61 02/15/18 14:45 O2 Sat by Pulse Oximetry (%) 96 02/14/18 21:00 General: Well developed. Well nourished. No acute distress. Head: Normocephalic. Atraumatic, Eyes: PERRLA, EOMI. Sclerae anicteric. Conjunctivae clear. Neck: Supple. No JVD. No bruits. Heart: Normal S1, S2: Regular rhythm and rate. No murmur. No gallop or rub. Lungs: Symmetrical air entry. Clear to auscultation. No crackles. No wheezing or rhonchi. Abdomen: Soft. Bowel sound positive. Non tender. No masses. Extremities: LLE 2+ edema with large erythema. RLL trace edema. No clubbing or cyanosis. Labs: CBC, BMP 02/15/18 06:35 02/15/18 06:35 INR, PTT INR 1.55 (0.83-1.09) H 02/12/18 18:20 Assessment/Plan 72 year old man a PMHx of HTN, HLD, CAD s/p CABGx3 on 01/24/2018 at [facility] with VALDEZ-LAD, SVG-Ramus, SVG-PDA) with SVG graft from LLE, post op Pafib on Eliquis, COPD admitted with worsening LLE erythema and edema. 1) LLE edema: -venous insufficiency with possible cellulitis vs hematoma -On IV antibiotics as per primary team --Vascular consult felt LLE edema was likely at least in part due to hematoma secondary to supratherapeutic INR -pt also has mild RLE edema -increase Lasix 60mg po bid. -agree with compression dressing, recc Leg elevation -if needed can stop Eliquis until safe to resume 2) CAD s/p CABG as above -stable -cont home meds 3) Post op Afib: Currently in sinus-HR controlled -cont amiodarone and metoprolol -cont Eliquis as long as safe, if needs to be held due to hematoma can do so and plan to resume when safe. Please call us for reconsult as needed.
--- NOTE | 2018-02-15 17:03 | PN ---
Progress Note (short form) - Note Progress Note: still some erythema of the left lower extremity unchanged Vital Signs Period Temp Pulse Resp BP Sys/Russo Pulse Ox Last 24 Hr 98.1 F-98.4 F 61-103 20-20 112-133/57-77 96 cor-rrr lungs clear abd soft ext swelling LLE unchanged, erythema unchanged sternal wound dry CBC, BMP 02/15/18 06:35 02/15/18 06:35 Microbiology 02/14/18 08:15 Nares - Mrsa Screen - Right MRSA Screen - Final NO MRSA ISOLATED 02/14/18 08:15 Nares - Mrsa Screen - Left MRSA Screen - Final NO MRSA ISOLATED 02/13/18 15:15 Wound Gram Stain - Final 02/13/18 15:15 Wound Wound Culture - Preliminary NO GROWTH OBTAINED AFTER 24 HOURS INCUBATION, REINCUBATED. 02/12/18 18:00 Blood - Peripheral Venous Blood Culture - Preliminary NO GROWTH OBTAINED AFTER 48 HOURS, INCUBATION TO CONTINUE FOR 3 DAYS. 02/12/18 18:20 Blood - Peripheral Venous Blood Culture - Preliminary NO GROWTH OBTAINED AFTER 48 HOURS, INCUBATION TO CONTINUE FOR 3 DAYS. 02/12/18 19:30 Urine - Urine Clean Catch Urine Culture - Final NO GROWTH OBTAINED a/p cellulitis continue cefepime d/c vancomycin repeat duplex of the leg- is this all due to the hematoma??? s/p cabg history afib Problem List - Problems (1) Cellulitis of left lower extremity Code(s): L03.116 - CELLULITIS OF LEFT LOWER LIMB (2) Fluid collection at surgical site Code(s): T88.8XXA - OTH COMPLICATIONS OF SURGICAL AND MEDICAL CARE, NEC, INIT (3) S/P CABG (coronary artery bypass graft) Code(s): Z95.1 - PRESENCE OF AORTOCORONARY BYPASS GRAFT (4) Abnormal LFTs Code(s): R94.5 - ABNORMAL RESULTS OF LIVER FUNCTION STUDIES
[2018-02-15] MEDS: ATORVASTATIN CA 40 MG TABLET (FP) PO SCH (22:19)
[2018-02-16] MEDS ORDERED: CEFEPIME HCL 1 GM VIAL (RESTRICTED TO ID) ONE ×3 (01:39→17:14)
[2018-02-16] MEDS ORDERED: DEXTROSE 5%-WATER - 50 ML IVPB ONE ×3 (01:39→17:14)
[2018-02-16] MEDS: CEFEPIME 1 GM in DEXTROSE 5%-WATER - 50 ML IVPB SCH ×3 (01:53→18:01)
[2018-02-16] MEDS ORDERED: METOPROLOL TARTRATE 50 MG TABLET (FP) ONE ×2 (06:48→17:13)
[2018-02-16] MEDS ORDERED: METOPROLOL TARTRATE 25 MG TABLET (FP) ONE ×2 (06:49→17:13)
[2018-02-16] MEDS: FUROSEMIDE 40 MG TABLET (FP) PO SCH ×2 (06:50→14:28)
[2018-02-16] MEDS: TIOTROPIUM BROMIDE 2.5 MCG (SPIRIVA) RESPIMAT INHALER IH SCH ×2 (06:51→09:22)
[2018-02-16] MEDS: BUDESONIDE/FORMETEROL FUMARATE 160/4.5 mcg INHALER IH SCH ×4 (06:51→22:26)
[2018-02-16] MEDS: METOPROLOL TARTRATE 50 MG, METOPROLOL TARTRATE 25 MG PO SCH ×2 (06:51→18:57)
[2018-02-16] MEDS: AMIODARONE HCL 200 MG TABLET (FP) PO SCH ×2 (06:51→18:57)
[2018-02-16] MEDS ORDERED: PT OWN MED DRAWER 7, Y5N ONE ×5 (07:52→22:19)
[2018-02-16] MEDS: APIXABAN 5 MG TABLET PO SCH ×2 (09:20→22:20)
[2018-02-16] MEDS: MULTIVITAMINS (DAILY MVI) TABLET (FP) PO SCH (09:20)
[2018-02-16] MEDS: ASPIRIN 81 MG CHEWABLE TABLETS PO SCH (09:20)
[2018-02-16] MEDS: POTASSIUM CHLORIDE TABS 20 MEQ TABLET.ER (FP) PO SCH ×2 (09:20→22:20)
[2018-02-16] MEDS: DUTASTERIDE 0.5 MG CAP (FP) PO SCH (09:21)
--- NOTE | 2018-02-16 11:06 | PN ---
Progress Note, Physician - Current Medication List Current Medications: Active Medications Acetaminophen (Tylenol -) 650 mg PO Q6H PRN PRN Reason: MILD PAIN Albuterol Sulfate (Ventolin Hfa Inhaler -) 2 puff IH Q6H PRN PRN Reason: SHORT OF BREATH/WHEEZING Amiodarone HCl (Cordarone -) 200 mg PO BID@0730,1930 [facility] Last Admin: 02/16/18 06:51 Dose: 200 mg Apixaban (Eliquis -) 5 mg PO BID [facility] Last Admin: 02/16/18 09:20 Dose: 5 mg Aspirin (Asa -) 81 mg PO DAILY [facility] Last Admin: 02/16/18 09:20 Dose: 81 mg Atorvastatin Calcium (Lipitor -) 40 mg PO HS [facility] Last Admin: 02/15/18 22:19 Dose: 40 mg Budesonide/Formoterol Fumarate (Symbicort 160/4.5mcg -) 2 puff IH BID [facility] Last Admin: 02/16/18 09:22 Dose: 2 puff Dutasteride (Avodart -) 0.5 mg PO DAILY [facility] Last Admin: 02/16/18 09:21 Dose: 0.5 mg Furosemide (Lasix -) 40 mg PO BID@0600,1400 [facility] Last Admin: 02/16/18 06:50 Dose: 40 mg Cefepime HCl 1 gm/ Dextrose 50 mls @ 100 mls/hr IVPB Q8H-IV [facility]; Protocol Last Admin: 02/16/18 09:21 Dose: 100 mls/hr Metoprolol Tartrate 50 mg/ (Metoprolol Tartrate 25 mg) 75 mg PO BID@0730,1930 [facility] Last Admin: 02/16/18 06:51 Dose: 75 mg Multivitamins/Minerals/Vitamin C (Tab-A-Vit -) 1 tab PO DAILY [facility] Last Admin: 02/16/18 09:20 Dose: 1 tab Potassium Chloride (K-Dur -) 20 meq PO BID [facility] Last Admin: 02/16/18 09:20 Dose: 20 meq Tiotropium [place] (Spiriva Respimat) 2 puff IH DAILY [facility] Last Admin: 02/16/18 09:22 Dose: 2 puff - Objective Vital Signs: Vital Signs Temperature 98.9 F 02/16/18 06:00 Pulse Rate 68 02/16/18 10:00 Respiratory Rate 18 02/16/18 10:00 Blood Pressure 108/68 02/16/18 10:00 O2 Sat by Pulse Oximetry (%) 97 02/16/18 09:00 Cardiovascular: Yes: S1, S2 Respiratory: Yes: Regular, CTA Bilaterally Gastrointestinal: Yes: Normal Bowel Sounds, Soft Extremities: Yes: Erythema Edema: Yes Labs: CBC, BMP 02/15/18 06:35 02/15/18 06:35 INR, PTT INR 1.55 (0.83-1.09) H 02/12/18 18:20 Problem List - Problems (1) Cellulitis of left lower extremity Assessment/Plan: -IV ABX -CULTURES -ID CONSULT- -US NOTED--VASC CONSULT Code(s): L03.116 - CELLULITIS OF LEFT LOWER LIMB (2) COPD (chronic obstructive pulmonary disease) Assessment/Plan: -NEBS Code(s): J44.9 - CHRONIC OBSTRUCTIVE PULMONARY DISEASE, UNSPECIFIED (3) Left leg swelling Assessment/Plan: -DUPLEX NEG FOR DVT--HEMATOMA -ON ELIQUIS -VASC FOLLOW UP Code(s): M79.89 - OTHER SPECIFIED SOFT TISSUE DISORDERS (4) S/P CABG (coronary artery bypass graft) Assessment/Plan: -CARDIO CONSULT Code(s): Z95.1 - PRESENCE OF AORTOCORONARY BYPASS GRAFT (5) HTN (hypertension) Assessment/Plan: -MONITOR Code(s): I10 - ESSENTIAL (PRIMARY) HYPERTENSION (6) Atrial fibrillation Assessment/Plan: -RATE CONTROLLED -ELIQUIS Code(s): I48.91 - UNSPECIFIED ATRIAL FIBRILLATION
[2018-02-16] MEDS ORDERED: FUROSEMIDE 40 MG/4 ML INJECTABLE VIAL IVPUSH ONE (11:15)
[2018-02-16] MEDS ORDERED: POTASSIUM CHLORIDE TABS 20 MEQ TABLET.ER (FP) PO ONE (11:15)
--- NOTE | 2018-02-16 11:35 | PN ---
Progress Note (short form) - Note Progress Note: still some erythema of the left lower extremity Vital Signs Period Temp Pulse Resp BP Sys/Russo Pulse Ox Last 24 Hr 98.0 F-98.9 F 68-97 18-20 104-117/50-68 97-97 cor-rrr lungs decreased bs at bases abd soft,nt ext less erythema, less edema of the leg duplex- collection unchanged CBC, BMP 02/15/18 06:35 02/15/18 06:35 Microbiology 02/12/18 18:00 Blood - Peripheral Venous Blood Culture - Preliminary NO GROWTH OBTAINED AFTER 72 HOURS, INCUBATION TO CONTINUE FOR 2 DAYS. 02/12/18 18:20 Blood - Peripheral Venous Blood Culture - Preliminary NO GROWTH OBTAINED AFTER 72 HOURS, INCUBATION TO CONTINUE FOR 2 DAYS. 02/14/18 08:15 Nares - Mrsa Screen - Right MRSA Screen - Final NO MRSA ISOLATED 02/14/18 08:15 Nares - Mrsa Screen - Left MRSA Screen - Final NO MRSA ISOLATED 02/13/18 15:15 Wound Gram Stain - Final 02/13/18 15:15 Wound Wound Culture - Preliminary NO GROWTH OBTAINED AFTER 24 HOURS INCUBATION, REINCUBATED. 02/12/18 19:30 Urine - Urine Clean Catch Urine Culture - Final NO GROWTH OBTAINED a/p erythema and edema improved suspect this is partially due to the hematoma continue cefepime (prior pseudomonas on wound culture) s/p cabg history afib incentive spirometer Problem List - Problems (1) Cellulitis of left lower extremity Code(s): L03.116 - CELLULITIS OF LEFT LOWER LIMB (2) Fluid collection at surgical site Code(s): T88.8XXA - OTH COMPLICATIONS OF SURGICAL AND MEDICAL CARE, NEC, INIT (3) S/P CABG (coronary artery bypass graft) Code(s): Z95.1 - PRESENCE OF AORTOCORONARY BYPASS GRAFT (4) Abnormal LFTs Code(s): R94.5 - ABNORMAL RESULTS OF LIVER FUNCTION STUDIES
[2018-02-16] MEDS: ATORVASTATIN CA 40 MG TABLET (FP) PO SCH (22:20)
[2018-02-17] MEDS ORDERED: DEXTROSE 5%-WATER - 50 ML IVPB ONE ×2 (01:39→09:24)
[2018-02-17] MEDS ORDERED: CEFEPIME HCL 1 GM VIAL (RESTRICTED TO ID) ONE ×2 (01:39→09:24)
[2018-02-17] MEDS: CEFEPIME 1 GM in DEXTROSE 5%-WATER - 50 ML IVPB SCH ×2 (02:05→09:46)
[2018-02-17] MEDS: ACETAMINOPHEN 325 MG TABLET (FP) PO PRN ×3 (02:05→17:13)
[2018-02-17] MEDS ORDERED: METOPROLOL TARTRATE 50 MG TABLET (FP) ONE ×3 (05:56→18:52)
[2018-02-17] MEDS ORDERED: METOPROLOL TARTRATE 25 MG TABLET (FP) ONE ×2 (05:57→16:44)
[2018-02-17] MEDS ORDERED: PT OWN MED DRAWER 7, Y5N ONE ×7 (05:58→21:38)
[2018-02-17] MEDS: FUROSEMIDE 40 MG TABLET (FP) PO SCH ×2 (06:08→14:19)
[2018-02-17] MEDS: TIOTROPIUM BROMIDE 2.5 MCG (SPIRIVA) RESPIMAT INHALER IH SCH ×2 (06:09→10:00)
[2018-02-17] MEDS: METOPROLOL TARTRATE 50 MG, METOPROLOL TARTRATE 25 MG PO SCH ×3 (06:10→18:53)
[2018-02-17] MEDS: AMIODARONE HCL 200 MG TABLET (FP) PO SCH ×3 (06:10→18:51)
[2018-02-17] MEDS: BUDESONIDE/FORMETEROL FUMARATE 160/4.5 mcg INHALER IH SCH ×2 (06:12→18:51)
[2018-02-17 08:52] LABS: BASO % 0.7 % (0-2.0); EOS % 4.1 % (0-4.5); HEMATOCRIT 38.3 % (35.4-49); HEMOGLOBIN 13.2 GM/dL (11.7-16.9); LYMPH % 11.6 % (8-40); MCH 32.9 pg (25.7-33.7); MCHC 34.6 g/dl (32.0-35.9); MEAN CELL VOLUME 95.1 fl (80-96); MEAN PLT VOLUME 9.1 fl (7.5-11.1); MONO % 10.6 % (3.8-10.2); PLATELET COUNT 229 K/MM3 (134-434); RBC 4.03 M/mm3 (4.00-5.60); RDW 14.7 % (11.9-15.9)
[2018-02-17 09:12] LABS: ALBUMIN 3.1 g/dl (3.4-5.0); ALK PHOS 110 U/L (45-117); ANION GAP 9 MMOL/L (8-16); BILIRUBIN,TOTAL 0.7 mg/dL (0.2-1); BLOOD UREA NITROGEN 16 mg/dL (7-18); CALCIUM 8.4 mg/dL (8.5-10.1); CHLORIDE 103 mmol/L (98-107); CO2 31 mmol/L (21-32); CREATININE 0.9 mg/dL (0.55-1.3); GLUCOSE,RANDOM 90 mg/dL (74-106); POTASSIUM 3.7 mmol/L (3.5-5.1); SGOT/AST 34 U/L (15-37); SGPT/ALT 62 U/L (13-61); SODIUM 143 mmol/L (136-145); TOT PROT 6.2 g/dl (6.4-8.2)
[2018-02-17] MEDS: MULTIVITAMINS (DAILY MVI) TABLET (FP) PO SCH (09:46)
[2018-02-17] MEDS: POTASSIUM CHLORIDE TABS 20 MEQ TABLET.ER (FP) PO SCH ×2 (09:46→22:04)
[2018-02-17] MEDS: ASPIRIN 81 MG CHEWABLE TABLETS PO SCH (09:46)
[2018-02-17] MEDS: DUTASTERIDE 0.5 MG CAP (FP) PO SCH (09:47)
[2018-02-17] MEDS: APIXABAN 5 MG TABLET PO SCH ×2 (09:47→22:04)
--- NOTE | 2018-02-17 11:43 | PN ---
Progress Note (short form) - Note Progress Note: still some erythema of the left lower extremity less edema now being wrapped Vital Signs Period Temp Pulse Resp BP Sys/Russo Pulse Ox Last 24 Hr 98.1 F-98.3 F 69-76 -18 115-150/61-92 98 cor-rrr lungs clear abd soft,nt leg with less edema, less erythema duplex- collection unchanged CBC, BMP 02/17/18 08:10 02/17/18 08:10 Microbiology 02/13/18 15:15 Wound Gram Stain - Final 02/13/18 15:15 Wound Wound Culture - Preliminary Pseudo Fluorescens/[place] 02/12/18 18:00 Blood - Peripheral Venous Blood Culture - Preliminary NO GROWTH OBTAINED AFTER 96 HOURS, INCUBATION TO CONTINUE FOR 1 DAYS. 02/12/18 18:20 Blood - Peripheral Venous Blood Culture - Preliminary NO GROWTH OBTAINED AFTER 96 HOURS, INCUBATION TO CONTINUE FOR 1 DAYS. 02/14/18 08:15 Nares - Mrsa Screen - Right MRSA Screen - Final NO MRSA ISOLATED 02/14/18 08:15 Nares - Mrsa Screen - Left MRSA Screen - Final NO MRSA ISOLATED 02/12/18 19:30 Urine - Urine Clean Catch Urine Culture - Final NO GROWTH OBTAINED a/p erythema and edema improved suspect this is partially due to the hematoma continue cefepime (prior pseudomonas on wound culture) s/p cabg history afib incentive spirometer Problem List - Problems (1) Cellulitis of left lower extremity Code(s): L03.116 - CELLULITIS OF LEFT LOWER LIMB (2) Fluid collection at surgical site Code(s): T88.8XXA - OTH COMPLICATIONS OF SURGICAL AND MEDICAL CARE, NEC, INIT (3) S/P CABG (coronary artery bypass graft) Code(s): Z95.1 - PRESENCE OF AORTOCORONARY BYPASS GRAFT (4) Abnormal LFTs Code(s): R94.5 - ABNORMAL RESULTS OF LIVER FUNCTION STUDIES
--- NOTE | 2018-02-17 13:14 | PN ---
Progress Note, Physician - Current Medication List Current Medications: Active Medications Acetaminophen (Tylenol -) 650 mg PO Q6H PRN PRN Reason: MILD PAIN Last Admin: 02/17/18 09:59 Dose: 650 mg Albuterol Sulfate (Ventolin Hfa Inhaler -) 2 puff IH Q6H PRN PRN Reason: SHORT OF BREATH/WHEEZING Amiodarone HCl (Cordarone -) 200 mg PO BID@729,1929 [facility] Last Admin: 02/17/18 06:44 Dose: Not Given Apixaban (Eliquis -) 5 mg PO BID [facility] Last Admin: 02/17/18 09:47 Dose: 5 mg Aspirin (Asa -) 81 mg PO DAILY [facility] Last Admin: 02/17/18 09:46 Dose: 81 mg Atorvastatin Calcium (Lipitor -) 40 mg PO HS [facility] Last Admin: 02/16/18 22:20 Dose: 40 mg Budesonide/Formoterol Fumarate (Symbicort 160/4.5mcg -) 2 puff IH Q12H [facility] Last Admin: 02/17/18 06:12 Dose: 2 puff Dutasteride (Avodart -) 0.5 mg PO DAILY [facility] Last Admin: 02/17/18 09:47 Dose: 0.5 mg Furosemide (Lasix -) 40 mg PO BID@0600,1400 [facility] Last Admin: 02/17/18 06:08 Dose: 40 mg Cefepime HCl (Maxipime 2gm Ivpb (Premix)) 2 gm in 50 mls @ 100 mls/hr IVPB Q8H- IV [facility]; Protocol Metoprolol Tartrate 50 mg/ (Metoprolol Tartrate 25 mg) 75 mg PO BID@ [facility] Last Admin: 02/17/18 06:45 Dose: Not Given Multivitamins/Minerals/Vitamin C (Tab-A-Vit -) 1 tab PO DAILY [facility] Last Admin: 02/17/18 09:46 Dose: 1 tab Potassium Chloride (K-Dur -) 20 meq PO BID [facility] Last Admin: 02/17/18 09:46 Dose: 20 meq Tiotropium [place] (Spiriva Respimat) 2 puff IH DAILY [facility] Last Admin: 02/17/18 10:00 Dose: 2 puff - Objective Vital Signs: Vital Signs Temperature 98.1 F 11/04/18 06:00 Pulse Rate 64 02/17/18 10:00 Respiratory Rate 18 02/17/18 10:00 Blood Pressure 108/58 L 02/17/18 10:00 O2 Sat by Pulse Oximetry (%) 95 02/17/18 09:00 Cardiovascular: Yes: S1, S2 Respiratory: Yes: Regular, CTA Bilaterally Gastrointestinal: Yes: Normal Bowel Sounds, Soft Extremities: Yes: Erythema Edema: RLE: 2+ Labs: CBC, BMP 02/17/18 08:10 02/17/18 08:10 INR, PTT INR 1.55 (0.83-1.09) H 02/12/18 18:20 Problem List - Problems (1) Cellulitis of left lower extremity Assessment/Plan: -IV ABX -CULTURES -ID CONSULT- -US NOTED--VASC CONSULT Code(s): L03.116 - CELLULITIS OF LEFT LOWER LIMB (2) COPD (chronic obstructive pulmonary disease) Assessment/Plan: -NEBS Code(s): J44.9 - CHRONIC OBSTRUCTIVE PULMONARY DISEASE, UNSPECIFIED (3) Left leg swelling Assessment/Plan: -DUPLEX NEG FOR DVT--HEMATOMA -ON ELIQUIS -VASC FOLLOW UP Code(s): M79.89 - OTHER SPECIFIED SOFT TISSUE DISORDERS (4) S/P CABG (coronary artery bypass graft) Assessment/Plan: -CARDIO CONSULT Code(s): Z95.1 - PRESENCE OF AORTOCORONARY BYPASS GRAFT (5) HTN (hypertension) Assessment/Plan: -MONITOR Code(s): I10 - ESSENTIAL (PRIMARY) HYPERTENSION (6) Atrial fibrillation Assessment/Plan: -RATE CONTROLLED -ELIQUIS Code(s): I48.91 - UNSPECIFIED ATRIAL FIBRILLATION
[2018-02-17] MEDS: CEFEPIME 2 GM in DEXTROSE 5%-WATER - 100 ML IVPB SCH (17:58)
[2018-02-17] MEDS: ATORVASTATIN CA 40 MG TABLET (FP) PO SCH (22:04)
[2018-02-18] MEDS: CEFEPIME 2 GM in DEXTROSE 5%-WATER - 100 ML IVPB SCH ×3 (02:55→18:01)
[2018-02-18] MEDS ORDERED: METOPROLOL TARTRATE 50 MG TABLET (FP) ONE (05:17)
[2018-02-18] MEDS ORDERED: METOPROLOL TARTRATE 25 MG TABLET (FP) ONE (05:17)
[2018-02-18] MEDS: AMIODARONE HCL 200 MG TABLET (FP) PO SCH ×2 (05:46→18:01)
[2018-02-18] MEDS: FUROSEMIDE 40 MG TABLET (FP) PO SCH ×2 (05:46→14:44)
[2018-02-18] MEDS: METOPROLOL TARTRATE 50 MG, METOPROLOL TARTRATE 25 MG PO SCH ×2 (06:00→07:49)
[2018-02-18] MEDS: BUDESONIDE/FORMETEROL FUMARATE 160/4.5 mcg INHALER IH SCH ×2 (06:02→18:01)
[2018-02-18] MEDS: TIOTROPIUM BROMIDE 2.5 MCG (SPIRIVA) RESPIMAT INHALER IH SCH ×2 (06:02→10:12)
[2018-02-18] MEDS ORDERED: PT OWN MED DRAWER 7, Y5N ONE ×4 (10:15→21:50)
[2018-02-18] MEDS: ASPIRIN 81 MG CHEWABLE TABLETS PO SCH (10:24)
[2018-02-18] MEDS: MULTIVITAMINS (DAILY MVI) TABLET (FP) PO SCH (10:25)
[2018-02-18] MEDS: POTASSIUM CHLORIDE TABS 20 MEQ TABLET.ER (FP) PO SCH ×2 (10:25→21:54)
[2018-02-18] MEDS: APIXABAN 5 MG TABLET PO SCH ×2 (10:25→21:54)
[2018-02-18] MEDS: DUTASTERIDE 0.5 MG CAP (FP) PO SCH (10:25)
--- NOTE | 2018-02-18 10:44 | PN ---
Progress Note (short form) - Note Progress Note: Vascular Surgery Pt seen and examined. dressing changed. Left calf much better. Cellulitis better. US reviewed. Hematoma probably secondary to vein harvest one month ago. Being on AC probably made it worse. The calf is not painful and hematoma should resorb in a month or so. Pt on Eliquis for Afib. Compression stockings. Caden rea DO
--- NOTE | 2018-02-18 11:22 | PN ---
Progress Note, Physician Chief Complaint: patient is seen and examined seen by vascular in the AM - Current Medication List Current Medications: Active Medications Acetaminophen (Tylenol -) 650 mg PO Q6H PRN PRN Reason: MILD PAIN Last Admin: 02/17/18 17:13 Dose: 650 mg Albuterol Sulfate (Ventolin Hfa Inhaler -) 2 puff IH Q6H PRN PRN Reason: SHORT OF BREATH/WHEEZING Amiodarone HCl (Cordarone -) 200 mg PO BID@0600,1800 [facility] Last Admin: 02/18/18 05:46 Dose: 200 mg Apixaban (Eliquis -) 5 mg PO BID [facility] Last Admin: 02/18/18 10:25 Dose: 5 mg Aspirin (Asa -) 81 mg PO DAILY [facility] Last Admin: 02/18/18 10:24 Dose: 81 mg Atorvastatin Calcium (Lipitor -) 40 mg PO HS [facility] Last Admin: 02/17/18 22:04 Dose: 40 mg Budesonide/Formoterol Fumarate (Symbicort 160/4.5mcg -) 2 puff IH Q12H [facility] Last Admin: 02/18/18 06:02 Dose: 2 puff Dutasteride (Avodart -) 0.5 mg PO DAILY [facility] Last Admin: 02/18/18 10:25 Dose: 0.5 mg Furosemide (Lasix -) 40 mg PO BID@0600,1400 [facility] Last Admin: 02/18/18 05:46 Dose: 40 mg Cefepime HCl 2 gm/ Dextrose 100 mls @ 200 mls/hr IVPB Q8H-IV [facility]; Protocol Last Admin: 02/18/18 10:48 Dose: 200 mls/hr Metoprolol Tartrate (Lopressor -) 75 mg PO BID@0600,1800 [facility] Multivitamins/Minerals/Vitamin C (Tab-A-Vit -) 1 tab PO DAILY [facility] Last Admin: 02/18/18 10:25 Dose: 1 tab Potassium Chloride (K-Dur -) 20 meq PO BID [facility] Last Admin: 02/18/18 10:25 Dose: 20 meq Tiotropium [place] (Spiriva Respimat) 2 puff IH DAILY [facility] - Objective Vital Signs: Vital Signs Temperature 98.3 F 02/18/18 06:21 Pulse Rate 71 02/18/18 06:21 Respiratory Rate 21 H 02/18/18 06:21 Blood Pressure 117/72 02/18/18 06:21 O2 Sat by Pulse Oximetry (%) 94 L 02/17/18 21:00 Constitutional: Yes: Calm Cardiovascular: Yes: Regular Rate and Rhythm, S1, S2 Respiratory: Yes: CTA Bilaterally Gastrointestinal: Yes: Normal Bowel Sounds, Soft Extremities: Yes: Other (left LLE swelling and erythema is better) Edema: Yes Labs: CBC, BMP 02/17/18 08:10 02/17/18 08:10 INR, PTT INR 1.55 (0.83-1.09) H 02/12/18 18:20 Problem List - Problems (1) Atrial fibrillation Assessment/Plan: amiodarone and eliquis cardiology on board Code(s): I48.91 - UNSPECIFIED ATRIAL FIBRILLATION (2) CAD (coronary artery disease) Assessment/Plan: aspirin,lipitor and metoprolol Code(s): I25.10 - ATHSCL HEART DISEASE OF [place] CORONARY ARTERY W/O ANG PCTRS (3) COPD (chronic obstructive pulmonary disease) Assessment/Plan: bronchodilators Code(s): J44.9 - CHRONIC OBSTRUCTIVE PULMONARY DISEASE, UNSPECIFIED (4) Cellulitis of left lower extremity Assessment/Plan: iv abx cefepime improving less erythema and swelling wbc trending down now normal duplex negative Code(s): L03.116 - CELLULITIS OF LEFT LOWER LIMB (5) Left leg swelling Assessment/Plan: lasix inc to 60mg bid negative duplex for dvt vasc saw patient compresion stocking leg elevation on eliquis h/h stable Code(s): M79.89 - OTHER SPECIFIED SOFT TISSUE DISORDERS (6) S/P CABG (coronary artery bypass graft) Assessment/Plan: asa,statin bb Code(s): Z95.1 - PRESENCE OF AORTOCORONARY BYPASS GRAFT (7) Hypokalemia Assessment/Plan: repleted check magnesium- normal Code(s): E87.6 - HYPOKALEMIA
[2018-02-18] MEDS ORDERED: METOPROLOL TARTRATE 50 MG, METOPROLOL TARTRATE 25 MG PO SCH (18:00)
[2018-02-18] MEDS: METOPROLOL TARTRATE 25 MG TABLET (FP) PO SCH (18:01)
[2018-02-18] MEDS: ATORVASTATIN CA 40 MG TABLET (FP) PO SCH (21:54)
[2018-02-18] MEDS ORDERED: DUTASTERIDE 0.5 MG CAP (FP) PO SCH (22:00)
[2018-02-19] MEDS: CEFEPIME 2 GM in DEXTROSE 5%-WATER - 100 ML IVPB SCH ×3 (02:22→18:04)
[2018-02-19] MEDS: ACETAMINOPHEN 325 MG TABLET (FP) PO PRN ×2 (03:12→20:53)
[2018-02-19] MEDS ORDERED: PT OWN MED DRAWER 7, Y5N ONE ×3 (05:53→17:22)
[2018-02-19] MEDS: FUROSEMIDE 40 MG TABLET (FP) PO SCH ×2 (05:55→14:22)
[2018-02-19] MEDS: METOPROLOL TARTRATE 25 MG TABLET (FP) PO SCH ×2 (05:55→18:03)
[2018-02-19] MEDS: AMIODARONE HCL 200 MG TABLET (FP) PO SCH ×2 (05:55→18:04)
[2018-02-19] MEDS: TIOTROPIUM BROMIDE 2.5 MCG (SPIRIVA) RESPIMAT INHALER IH SCH ×2 (05:58→10:51)
[2018-02-19] MEDS: BUDESONIDE/FORMETEROL FUMARATE 160/4.5 mcg INHALER IH SCH ×2 (05:59→18:04)
[2018-02-19] MEDS: POTASSIUM CHLORIDE TABS 20 MEQ TABLET.ER (FP) PO SCH ×2 (10:50→21:39)
[2018-02-19] MEDS: APIXABAN 5 MG TABLET PO SCH ×2 (10:51→21:39)
[2018-02-19] MEDS: MULTIVITAMINS (DAILY MVI) TABLET (FP) PO SCH (10:51)
[2018-02-19] MEDS: ASPIRIN 81 MG CHEWABLE TABLETS PO SCH (10:51)
[2018-02-19] MEDS: DUTASTERIDE 0.5 MG CAP (FP) PO SCH (10:51)
--- NOTE | 2018-02-19 14:19 | PN ---
Progress Note, Physician Chief Complaint: patient seen and exained leg swelling and erythema is improving on iv abx cefepime - Current Medication List Current Medications: Active Medications Acetaminophen (Tylenol -) 650 mg PO Q6H PRN PRN Reason: MILD PAIN Last Admin: 02/19/18 03:12 Dose: 650 mg Albuterol Sulfate (Ventolin Hfa Inhaler -) 2 puff IH Q6H PRN PRN Reason: SHORT OF BREATH/WHEEZING Amiodarone HCl (Cordarone -) 200 mg PO BID@0600,1800 [facility] Last Admin: 02/19/18 05:55 Dose: 200 mg Apixaban (Eliquis -) 5 mg PO BID [facility] Last Admin: 02/19/18 10:51 Dose: 5 mg Aspirin (Asa -) 81 mg PO DAILY [facility] Last Admin: 02/19/18 10:51 Dose: 81 mg Atorvastatin Calcium (Lipitor -) 40 mg PO HS [facility] Last Admin: 02/18/18 21:54 Dose: 40 mg Budesonide/Formoterol Fumarate (Symbicort 160/4.5mcg -) 2 puff IH Q12H [facility] Last Admin: 02/19/18 05:59 Dose: 2 puff Dutasteride (Avodart -) 0.5 mg PO DAILY [facility] Last Admin: 02/19/18 10:51 Dose: 0.5 mg Furosemide (Lasix -) 60 mg PO BID@0600,1400 [facility] Last Admin: 02/19/18 05:55 Dose: 60 mg Cefepime HCl 2 gm/ Dextrose 100 mls @ 200 mls/hr IVPB Q8H-IV [facility]; Protocol Last Admin: 02/19/18 10:51 Dose: 200 mls/hr Metoprolol Tartrate (Lopressor -) 75 mg PO BID@0600,1800 [facility] Last Admin: 02/19/18 05:55 Dose: 75 mg Multivitamins/Minerals/Vitamin C (Tab-A-Vit -) 1 tab PO DAILY [facility] Last Admin: 02/19/18 10:51 Dose: 1 tab Potassium Chloride (K-Dur -) 20 meq PO BID [facility] Last Admin: 02/19/18 10:50 Dose: 20 meq Tiotropium [place] (Spiriva Respimat) 2 puff IH DAILY [facility] Last Admin: 02/19/18 10:51 Dose: Not Given - Objective Vital Signs: Vital Signs Temperature 98.5 F 02/19/18 13:41 Pulse Rate 68 02/19/18 13:41 Respiratory Rate 17 02/19/18 13:41 Blood Pressure 111/62 02/19/18 13:41 O2 Sat by Pulse Oximetry (%) 93 L 02/18/18 09:00 Constitutional: Yes: Calm Cardiovascular: Yes: Regular Rate and Rhythm, S1, S2 Respiratory: Yes: CTA Bilaterally Gastrointestinal: Yes: Normal Bowel Sounds, Soft Extremities: Yes: Erythema (resolved calf is less swollen) Edema: Yes (decreased) Labs: CBC, BMP 02/17/18 08:10 02/17/18 08:10 INR, PTT INR 1.55 (0.83-1.09) H 02/12/18 18:20 Problem List - Problems (1) Cellulitis of left lower extremity Assessment/Plan: iv abx cefepime improving less erythema and swelling wbc trending down now normal duplex negative ID follow up for duration of abx Microbiology 02/13/18 15:15 Wound Gram Stain - Final 02/13/18 15:15 Wound Wound Culture - Final Pseudo Fluorescens/[place] Code(s): L03.116 - CELLULITIS OF LEFT LOWER LIMB (2) Atrial fibrillation Assessment/Plan: amiodarone and eliquis cardiology on board Code(s): I48.91 - UNSPECIFIED ATRIAL FIBRILLATION (3) CAD (coronary artery disease) Assessment/Plan: aspirin,lipitor and metoprolol Code(s): I25.10 - ATHSCL HEART DISEASE OF [place] CORONARY ARTERY W/O ANG PCTRS (4) COPD (chronic obstructive pulmonary disease) Assessment/Plan: bronchodilators Code(s): J44.9 - CHRONIC OBSTRUCTIVE PULMONARY DISEASE, UNSPECIFIED (5) Left leg swelling Assessment/Plan: lasix inc to 60mg bid negative duplex for dvt vasc saw patient compresion stocking leg elevation on eliquis h/h stable Code(s): M79.89 - OTHER SPECIFIED SOFT TISSUE DISORDERS (6) S/P CABG (coronary artery bypass graft) Assessment/Plan: asa,statin bb Code(s): Z95.1 - PRESENCE OF AORTOCORONARY BYPASS GRAFT (7) Hypokalemia Assessment/Plan: repleted check magnesium- normal Code(s): E87.6 - HYPOKALEMIA
--- NOTE | 2018-02-19 14:56 | PN ---
Progress Note (short form) - Note Progress Note: feels well Vital Signs Period Temp Pulse Resp BP Sys/Russo Pulse Ox Last 24 Hr 97.8 F-98.8 F 68-74 17-18 111-126/57-67 cor-rrr llungs decreased bs on the left abd soft,nt ext much less erythema and edema of the LLE CBC, BMP 02/17/18 08:10 02/17/18 08:10 Current Medications Acetaminophen (Tylenol -) 650 mg PO Q6H PRN PRN Reason: MILD PAIN Last Admin: 02/19/18 03:12 Dose: 650 mg Albuterol Sulfate (Ventolin Hfa Inhaler -) 2 puff IH Q6H PRN PRN Reason: SHORT OF BREATH/WHEEZING Amiodarone HCl (Cordarone -) 200 mg PO BID@0600,1800 [facility] Last Admin: 02/19/18 05:55 Dose: 200 mg Apixaban (Eliquis -) 5 mg PO BID [facility] Last Admin: 02/19/18 10:51 Dose: 5 mg Aspirin (Asa -) 81 mg PO DAILY [facility] Last Admin: 02/19/18 10:51 Dose: 81 mg Atorvastatin Calcium (Lipitor -) 40 mg PO HS [facility] Last Admin: 02/18/18 21:54 Dose: 40 mg Budesonide/Formoterol Fumarate (Symbicort 160/4.5mcg -) 2 puff IH Q12H [facility] Last Admin: 02/19/18 05:59 Dose: 2 puff Dutasteride (Avodart -) 0.5 mg PO DAILY [facility] Last Admin: 02/19/18 10:51 Dose: 0.5 mg Furosemide (Lasix -) 60 mg PO BID@0600,1400 [facility] Last Admin: 02/19/18 14:22 Dose: 60 mg Cefepime HCl 2 gm/ Dextrose 100 mls @ 200 mls/hr IVPB Q8H-IV [facility]; Protocol Last Admin: 02/19/18 10:51 Dose: 200 mls/hr Metoprolol Tartrate (Lopressor -) 75 mg PO BID@0600,1800 [facility] Last Admin: 02/19/18 05:55 Dose: 75 mg Multivitamins/Minerals/Vitamin C (Tab-A-Vit -) 1 tab PO DAILY [facility] Last Admin: 11/06/18 10:51 Dose: 1 tab Potassium Chloride (K-Dur -) 20 meq PO BID [facility] Last Admin: 02/19/18 10:50 Dose: 20 meq Tiotropium [place] (Spiriva Respimat) 2 puff IH DAILY [facility] Last Admin: 02/19/18 10:51 Dose: Not Given a/p erythema and edema markedly improved suspect this is partially due to the hematoma day #7 cefepime hopefully d/c antiibotics in am continue wrapping the leg no oral quinolones- has prolonged qtc s/p cabg history afib incentive spirometer Problem List - Problems (1) Cellulitis of left lower extremity Code(s): L03.116 - CELLULITIS OF LEFT LOWER LIMB (2) Fluid collection at surgical site Code(s): T88.8XXA - OTH COMPLICATIONS OF SURGICAL AND MEDICAL CARE, NEC, INIT (3) S/P CABG (coronary artery bypass graft) Code(s): Z95.1 - PRESENCE OF AORTOCORONARY BYPASS GRAFT (4) Abnormal LFTs Code(s): R94.5 - ABNORMAL RESULTS OF LIVER FUNCTION STUDIES
[2018-02-19 16:57] LABS: ALBUMIN 3.1 g/dl (3.4-5.0); ALK PHOS 113 U/L (45-117); ANION GAP 7 MMOL/L (8-16); BILIRUBIN,TOTAL 0.4 mg/dL (0.2-1); BLOOD UREA NITROGEN 21 mg/dL (7-18); CALCIUM 8.7 mg/dL (8.5-10.1); CHLORIDE 100 mmol/L (98-107); CO2 33 mmol/L (21-32); GLUCOSE,RANDOM 115 mg/dL (74-106); SGOT/AST 47 U/L (15-37); SGPT/ALT 70 U/L (13-61); SODIUM 140 mmol/L (136-145); TOT PROT 6.2 g/dl (6.4-8.2)
[2018-02-19] MEDS: ATORVASTATIN CA 40 MG TABLET (FP) PO SCH (21:39)
[2018-02-20] MEDS ORDERED: PT OWN MED DRAWER 7, Y5N ONE ×3 (02:07→09:17)
[2018-02-20] MEDS: CEFEPIME 2 GM in DEXTROSE 5%-WATER - 100 ML IVPB SCH ×2 (02:25→10:00)
[2018-02-20] MEDS: AMIODARONE HCL 200 MG TABLET (FP) PO SCH (06:16)
[2018-02-20] MEDS: FUROSEMIDE 40 MG TABLET (FP) PO SCH ×2 (06:16→13:44)
[2018-02-20] MEDS: METOPROLOL TARTRATE 25 MG TABLET (FP) PO SCH (06:17)
[2018-02-20] MEDS: BUDESONIDE/FORMETEROL FUMARATE 160/4.5 mcg INHALER IH SCH (06:17)
[2018-02-20 08:03] LABS: BASO % 0.8 % (0-2.0); EOS % 4.4 % (0-4.5); HEMATOCRIT 37.6 % (35.4-49); HEMOGLOBIN 12.2 GM/dL (11.7-16.9); MCH 30.8 pg (25.7-33.7); MCHC 32.4 g/dl (32.0-35.9); MEAN CELL VOLUME 95.1 fl (80-96); MONO % 11.1 % (3.8-10.2); NEUT % 66.7 % (42.8-82.8); PLATELET COUNT 188 K/MM3 (134-434); RBC 3.95 M/mm3 (4.00-5.60); RDW 14.3 % (11.9-15.9); WHITE BLOOD COUNT 8.8 K/mm3 (4.0-10.0)
[2018-02-20 08:29] LABS: ALBUMIN 2.8 g/dl (3.4-5.0); ALK PHOS 96 U/L (45-117); ANION GAP 7 MMOL/L (8-16); BILIRUBIN,TOTAL 0.5 mg/dL (0.2-1); BLOOD UREA NITROGEN 15 mg/dL (7-18); CALCIUM 8.4 mg/dL (8.5-10.1); CHLORIDE 103 mmol/L (98-107); CO2 31 mmol/L (21-32); CREATININE 0.9 mg/dL (0.55-1.3); GLUCOSE,RANDOM 85 mg/dL (74-106); POTASSIUM 3.8 mmol/L (3.5-5.1); SGOT/AST 43 U/L (15-37); SGPT/ALT 68 U/L (13-61); SODIUM 141 mmol/L (136-145); TOT PROT 5.8 g/dl (6.4-8.2)
[2018-02-20] MEDS: MULTIVITAMINS (DAILY MVI) TABLET (FP) PO SCH (09:38)
[2018-02-20] MEDS: ASPIRIN 81 MG CHEWABLE TABLETS PO SCH (09:38)
[2018-02-20] MEDS: POTASSIUM CHLORIDE TABS 20 MEQ TABLET.ER (FP) PO SCH (09:38)
[2018-02-20] MEDS: TIOTROPIUM BROMIDE 2.5 MCG (SPIRIVA) RESPIMAT INHALER IH SCH (09:39)
[2018-02-20] MEDS: DUTASTERIDE 0.5 MG CAP (FP) PO SCH (09:41)
[2018-02-20] MEDS: APIXABAN 5 MG TABLET PO SCH (09:42)
--- NOTE | 2018-02-20 10:49 | DS ---
Physical Examination Vital Signs: Vital Signs Temperature 98.3 F 02/20/18 06:00 Pulse Rate 63 02/20/18 06:00 Respiratory Rate 18 02/20/18 06:00 Blood Pressure 114/62 02/20/18 06:00 O2 Sat by Pulse Oximetry (%) 90 L 02/19/18 21:00 Labs: CBC, BMP 02/20/18 07:15 02/20/18 07:15 Discharge Summary Reason For Visit: SWELLING OF LEFT LOWER EXTREMITY Current Active Problems Abnormal LFTs (Acute) Atrial fibrillation (Acute) CAD (coronary artery disease) (Acute) COPD (chronic obstructive pulmonary disease) (Acute) Cellulitis of left lower extremity (Acute) Fluid collection at surgical site (Acute) Hypokalemia (Acute) Left leg swelling (Acute) S/P CABG (coronary artery bypass graft) (Acute) - Instructions Referrals: Danny Jimenze MD [Primary Care Provider] - 1 Week Disposition: VNS/HOME HEALTH CARE - Home Medications Comprehensive Discharge Medication List: Ambulatory Orders Albuterol Sulfate Inhaler - [Ventolin HFA Inhaler -] 2 inh PO Q6H 02/12/18 Amiodarone HCl 200 mg PO BID 02/12/18 Apixaban [Eliquis] 5 mg PO BID 02/12/18 Aspirin [ASA -] 81 mg PO DAILY 02/12/18 Atorvastatin Ca [Lipitor] 40 mg PO HS 02/12/18 Budesonide/Formeterol Fumarate [SYMBICORT 160/4.5mcg -] 2 inh PO BID 02/12/18 Cyanocobalamin (Vitamin B-12) [Vitamin B-12] 1,000 mcg PO DAILY 02/12/18 Dutasteride [Avodart] 0.5 mg PO DAILY 02/12/18 Multivitamin [One Daily] 1 each PO DAILY 02/12/18 Tiotropium [place] [Spiriva Respimat] 2 puff IH DAILY 02/12/18 Metoprolol Tartrate 75 mg PO BID 02/13/18 Cefuroxime Axetil [Ceftin -] 500 mg PO Q12H #14 tablet 02/20/18 Furosemide [Lasix -] 60 mg PO BID #180 tablet 02/20/18 Potassium Chloride [K-Dur -] 20 meq PO BID #60 tablet.er 02/20/18
[2018-02-20 11:59] VITALS: TEMP 98.2
[2018-02-20 13:15] VITALS: BP 102/62; PULSE 68
== END 2018-02-20 14:01 | disposition home health service (06) | DRG 920 ==
LOC: JER 17:01 → JERBED 20:30 → J5S 02-13 02:14
PROVIDERS: ADMIT Internal Medicine; ATTEND Family Medicine
DX: I97.631 Postprocedural hematoma of a circulatory system organ or structure following cardiac bypass (principal); L03.116 Cellulitis of left lower limb; I10 Essential (primary) hypertension; E78.5 Hyperlipidemia, unspecified; J44.9 Chronic obstructive pulmonary disease, unspecified; I25.10 Atherosclerotic heart disease of native coronary artery without angina pectoris; Z95.1 Presence of aortocoronary bypass graft; I48.0 Paroxysmal atrial fibrillation; E87.6 Hypokalemia; I44.0 Atrioventricular block, first degree; Z99.81 Dependence on supplemental oxygen; Y83.9 Surgical procedure, unspecified as the cause of abnormal reaction of the patient, or of later complication, without mention of misadventure at the time of the procedure
CPT/HCPCS: 36415; 80048; 80053; 81003; 81015; 83605; 83735; 85025; 85610; 87040; 87070; 87081; 87086; 87186; 87205; 93005; 93010; 93971-TC; 94010; 99285-25; G0480

== ENCOUNTER 2019-12-24 05:14 | Day surgery (SDC) | payer OTHER, MEDICARE ==
[2019-12-24 07:48] VITALS: BMI 31.0
[2019-12-24 09:00] VITALS: TEMP 97.9
[2019-12-24 09:55] VITALS: BP 146/83; PULSE 66
--- NOTE | 2019-12-25 16:01 | PATH ---
Surgical Pathology Report Patient Name: LINDA RANDOLPH [facility]. Rec. #: [id number] /Age/Gender: 1945 (Age: 74) / M Account: [id number] Location: U-ENDOSCOPY Taken: 12/24/2019 Received: 12/24/2019 Reported: 12/25/2019 Physicians: Mayito Flanagan M.D. Specimen(s) Received A: SECOND PORTION OF DUODENUM AND BULB B: LIPOMA C: ANTRUM D: RECTAL POLYP E: CECAL POLYP F: DESCENDING COLON POLYP G: HEPATIC FLEXURE POLYP Clinical History GI occult bleed, rule out ulcer, change in bowel habits, rectal bleed, history of colon adenoma Postoperative diagnosis: Erosive gastritis, colon polyps, hemorrhoids, lipoma-duodenum Final Diagnosis A. SECOND PORTION DUODENUM AND BULB, BIOPSY: DUODENAL MUCOSA WITH NO SIGNIFICANT PATHOLOGIC CHANGE. NO HISTOLOGIC EVIDENCE OF INTRAEPITHELIAL LYMPHOCYTOSIS. B. LIPOMA, BIOPSY: DUODENAL MUCOSA WITH MATURE ADIPOSE TISSUE IN THE SUBMUCOSA, CONSISTENT WITH LIPOMA. C. ANTRUM, BIOPSY: GASTRIC MUCOSA WITH CHRONIC GASTRITIS. IMMUNOSTAIN FOR H. PYLORI IS NEGATIVE. NEGATIVE FOR INTESTINAL METAPLASIA. D. RECTAL POLYP, POLYPECTOMY: TUBULAR ADENOMA. E. CECAL POLYP, POLYPECTOMY: TUBULAR ADENOMA. F. DESCENDING COLON POLYP, POLYPECTOMY: HYPERPLASTIC POLYP. G. HEPATIC FLEXURE POLYP, POLYPECTOMY: TUBULAR ADENOMA, ONE FRAGMENT. SEPARATE ONE FRAGMENT OF HYPERPLASTIC POLYP. SEPARATE ONE FRAGMENT OF SMALL INTESTINAL MUCOSA WITH NO SIGNIFICANT PATHOLOGIC CHANGE. Electronically Signed Ailin Mccoy M.D. Gross Description A. Received in formalin, labeled "biopsy second portion duodenum and bulb" are 3 pearson, irregular portions of soft tissue ranging from 0.4-0.7 cm. in greatest dimension. The specimens are submitted in toto in one cassette. B. Received in formalin, labeled "biopsy lipoma from second portion of duodenum" are 2 pearson, irregular portions of soft tissue measuring 0.2 and 0.3 cm. in greatest dimension. The specimens are submitted in toto in one cassette. C. Received in formalin, labeled "biopsy antrum" are 4 pearson, irregular portions of soft tissue ranging from 0.2-0.6 cm. in greatest dimension. The specimens are submitted in toto in one cassette. D. Received in formalin, labeled "rectal polyp" is a pearson, irregular portion of soft tissue measuring 0.2 cm. in greatest dimension. The specimen is submitted in toto in one cassette. E. Received in formalin, labeled "cecal polyp" is a pearson, irregular portion of soft tissue measuring 0.3 cm. in greatest dimension. The specimen is submitted in toto in one cassette. F. Received in formalin, labeled "biopsy descending colon polyp" are 3 pearson, irregular portions of soft tissue ranging from 0.1-0.3 cm. in greatest dimension. The specimens are submitted in toto in one cassette. G. Received in formalin, labeled "hepatic flexure polyp" are 3 pearson, irregular portions of soft tissue ranging from 0.2-0.4 cm. in greatest dimension. The specimens are submitted in toto in one cassette. 12/24/2019 [facility]12/24/2019
== END 2019-12-24 10:15 | disposition home or self-care (01) ==
LOC: JASU-ENDO 05:14
PROVIDERS: ATTEND Internal Medicine Gastroenterology
PROC: 0DBL8ZX Excision of Transverse Colon, Via Natural or Artificial Opening Endoscopic, Diagnostic (ICD-10-PCS; 2019-12-24)
PROC: 0DBP8ZX Excision of Rectum, Via Natural or Artificial Opening Endoscopic, Diagnostic (ICD-10-PCS; 2019-12-24)
PROC: 0DBM8ZX Excision of Descending Colon, Via Natural or Artificial Opening Endoscopic, Diagnostic (ICD-10-PCS; 2019-12-24)
PROC: 3E0H8GC Introduction of Other Therapeutic Substance into Lower GI, Via Natural or Artificial Opening Endoscopic (ICD-10-PCS; 2019-12-24)
PROC: 0DB98ZX Excision of Duodenum, Via Natural or Artificial Opening Endoscopic, Diagnostic (ICD-10-PCS; 2019-12-24)
PROC: 0DB68ZX Excision of Stomach, Via Natural or Artificial Opening Endoscopic, Diagnostic (ICD-10-PCS; 2019-12-24)
PROC: 0DBH8ZX Excision of Cecum, Via Natural or Artificial Opening Endoscopic, Diagnostic (ICD-10-PCS; principal; 2019-12-24 08:30)
DX: Z86.010 Personal history of colon polyps (principal); D12.0 Benign neoplasm of cecum; D12.3 Benign neoplasm of transverse colon; D12.4 Benign neoplasm of descending colon; D12.8 Benign neoplasm of rectum; K57.30 Diverticulosis of large intestine without perforation or abscess without bleeding; K64.8 Other hemorrhoids; D17.79 Benign lipomatous neoplasm of other sites; K29.50 Unspecified chronic gastritis without bleeding; R19.4 Change in bowel habit; K62.5 Hemorrhage of anus and rectum
CPT/HCPCS: 88304-TC; 88305-TC; 88342-TC

== ENCOUNTER 2020-09-16 12:18 | Emergency (ER) | payer OTHER, MEDICARE ==
[2020-09-16 12:31] VITALS: BMI 30.7
[2020-09-16 13:20] LABS: BASO % 0.4 % (0-2.0); EOS % 1.9 % (0-4.5); HEMATOCRIT 41.1 % (35.4-49); HEMOGLOBIN 13.7 GM/dL (11.7-16.9); LYMPH % 12.7 % (8-40); MCH 30.1 pg (25.7-33.7); MCHC 33.3 g/dl (32.0-35.9); MEAN CELL VOLUME 90.3 fl (80-96); MEAN PLT VOLUME 8.4 fl (7.5-11.1); MONO % 9.6 % (3.8-10.2); NEUT % 75.4 % (42.8-82.8); PLATELET COUNT 228 K/MM3 (134-434); RBC 4.55 M/mm3 (4.00-5.60); RDW 14.6 % (11.9-15.9); WHITE BLOOD COUNT 9.4 K/mm3 (4.0-10.0)
[2020-09-16 13:44] LABS: CHLORIDE 106 mmol/L (98-107); SODIUM 142 mmol/L (136-145)
[2020-09-16 13:45] LABS: ANION GAP 4 MMOL/L (8-16); CALCIUM 9.4 mg/dL (8.5-10.1); CO2 32 mmol/L (21-32)
[2020-09-16 13:46] LABS: BLOOD UREA NITROGEN 13.6 mg/dL (7-18); GLUCOSE,RANDOM 99 mg/dL (74-106)
[2020-09-16] MEDS ORDERED: FUROSEMIDE 40 MG/4 ML INJECTABLE VIAL IVPUSH ONE (15:10)
[2020-09-16] MEDS ORDERED: FUROSEMIDE 40 MG/4 ML INJECTABLE VIAL ONE (15:11)
[2020-09-16 15:41] VITALS: BP 136/82; PULSE 86; TEMP 98.3
== END 2020-09-16 15:50 | disposition home or self-care (01) ==
LOC: JER 12:18
PROC: 3E033NZ Introduction of Analgesics, Hypnotics, Sedatives into Peripheral Vein, Percutaneous Approach (ICD-10-PCS; principal; 2020-09-16)
DX: I50.9 Heart failure, unspecified (principal)
CPT/HCPCS: 36415; 71045-TC-FY; 80048; 83880; 84484; 85025; 93005; 93010; 99284-25; C9803; U0003; U0005

== ENCOUNTER 2023-04-03 04:48 | Day surgery (SDC) | payer OTHER, MEDICARE ==
[2023-03-30 12:06] VITALS: BMI 29.2
[2023-04-03 08:56] VITALS: TEMP 97.8
[2023-04-03 09:35] VITALS: BP 103/61; PULSE 88; RESP 18
== END 2023-04-03 09:40 | disposition home or self-care (01) ==
LOC: JASU-ENDO 04:48
PROVIDERS: ATTEND Internal Medicine Gastroenterology
PROC: 3E0H8KZ Introduction of Other Diagnostic Substance into Lower GI, Via Natural or Artificial Opening Endoscopic (ICD-10-PCS; 2023-04-03)
PROC: 0DBL8ZX Excision of Transverse Colon, Via Natural or Artificial Opening Endoscopic, Diagnostic (ICD-10-PCS; principal; 2023-04-03 08:00)
DX: Z12.11 Encounter for screening for malignant neoplasm of colon (principal); D12.3 Benign neoplasm of transverse colon; K57.30 Diverticulosis of large intestine without perforation or abscess without bleeding; K64.8 Other hemorrhoids
CPT/HCPCS: 88305-TC

== ENCOUNTER 2023-08-02 15:14 | Emergency (ER) | payer OTHER, MEDICARE ==
[2023-08-02 15:31] VITALS: TEMP 97.5; BMI 29.5
[2023-08-02 16:07] LABS: BASO % 0.6 % (0-2.0); EOS % 0.1 % (0-4.5); HEMATOCRIT 42.7 % (35.4-49); HEMOGLOBIN 13.9 GM/dL (11.7-16.9); LYMPH % 3.7 % (8-40); MCH 29.5 pg (25.7-33.7); MCHC 32.5 g/dl (32.0-35.9); MEAN CELL VOLUME 90.6 fl (80-96); MEAN PLT VOLUME 9.7 fl (7.5-11.1); MONO % 3.2 % (3.8-10.2); NEUT % 92.4 % (42.8-82.8); PLATELET COUNT 133 10^3/uL (134-434); RBC 4.71 M/mm3 (4.00-5.60); RDW 16.7 % (11.9-15.9); WHITE BLOOD COUNT 13.7 K/mm3 (4.0-10.0)
[2023-08-02 16:15] LABS: INR 1.43 (0.83-1.09); PROTHROMBIN TIME (PATIENT) 16.5 SEC (9.7-13.0)
[2023-08-02] MEDS ORDERED: ASPIRIN 81 MG CHEWABLE TABLETS ONE (16:15)
[2023-08-02] MEDS ORDERED: TICAGRELOR 90 MG TABLET PO ONE (16:15)
[2023-08-02] MEDS ORDERED: SODIUM CHLORIDE 500 ML IV STA (16:17)
[2023-08-02 16:18] LABS: ACTIVATED PTT 28.7 SECONDS (25.2-36.5)
[2023-08-02] MEDS: ASPIRIN 81 MG CHEWABLE TABLETS PO ONE (16:18)
[2023-08-02] MEDS: TICAGRELOR 60 MG TABLET PO ONE (16:18)
[2023-08-02 16:19] VITALS: BP 107/75; PULSE 100; RESP 18
[2023-08-02 16:30] LABS: POTASSIUM 4.2 mmol/L (3.5-5.1)
[2023-08-02 16:33] LABS: CALCIUM 9.2 mg/dL (8.5-10.1)
[2023-08-02 16:34] LABS: ALBUMIN 3.7 g/dl (3.4-5.0); BLOOD UREA NITROGEN 34.6 mg/dL (7-18); MAGNESIUM 1.9 mg/dL (1.8-2.4)
[2023-08-02 16:37] LABS: CREATININE 1.4 mg/dL (0.55-1.3)
[2023-08-02 16:38] LABS: BILIRUBIN,TOTAL 1.4 mg/dL (0.2-1); TOT PROT 6.5 g/dl (6.4-8.2)
[2023-08-02 16:42] LABS: N-TERMINAL BNP 6949.7 pg/ml (5-450)
[2023-08-02 17:01] LABS: ANISOCYTOSIS 2+; MACROCYTOSIS 0; OVALOCYTE 2+
== END 2023-08-02 16:44 | disposition short-term general hospital (02) ==
LOC: JER 15:14
DX: I48.91 Unspecified atrial fibrillation (principal); R06.02 Shortness of breath; R07.89 Other chest pain; Z20.822 Contact with and (suspected) exposure to COVID-19
CPT/HCPCS: 0241U-QW; 36415; 71045-TC-FY; 80053; 83735; 83880; 84484; 85025; 85610; 85730; 93005; 93010; 99285-25

== ENCOUNTER 2023-09-05 09:55 | Inpatient (IN) | payer OTHER, MEDICARE ==
[2023-09-05 11:23] LABS: EOS % 1.7 % (0-4.5); HEMATOCRIT 41.4 % (35.4-49); HEMOGLOBIN 13.9 GM/dL (11.7-16.9); MCH 30.3 pg (25.7-33.7); MCHC 33.7 g/dl (32.0-35.9); MEAN CELL VOLUME 89.8 fl (80-96); MEAN PLT VOLUME 9.4 fl (7.5-11.1); MONO % 8.1 % (3.8-10.2); NEUT % 82.2 % (42.8-82.8); PLATELET COUNT 132 10^3/uL (134-434); RBC 4.61 M/mm3 (4.00-5.60)
[2023-09-05 11:42] LABS: POTASSIUM 4.2 mmol/L (3.5-5.1)
[2023-09-05 11:44] LABS: CALCIUM 9.8 mg/dL (8.5-10.1)
[2023-09-05 11:45] LABS: BLOOD UREA NITROGEN 29.5 mg/dL (7-18)
[2023-09-05 11:48] LABS: CREATININE 1.2 mg/dL (0.55-1.3)
[2023-09-05 11:50] LABS: BILIRUBIN,TOTAL 1.4 mg/dL (0.2-1)
[2023-09-05 11:53] LABS: N-TERMINAL BNP 8326.8 pg/ml (5-450)
[2023-09-05] MEDS ORDERED: FUROSEMIDE 40 MG/4 ML INJECTABLE VIAL ONE (12:29)
[2023-09-05] MEDS: FUROSEMIDE 40 MG/4 ML INJECTABLE VIAL IVPUSH ONE (12:45)
[2023-09-05] MEDS: ATORVASTATIN CA 40 MG TABLET (FP) PO SCH (21:22)
[2023-09-05] MEDS: TAMSULOSIN HCL 0.4 MG CAP PO ONE (21:23)
[2023-09-05] MEDS: hydrOXYzine PAMOATE 25 MG CAPSULE (FP) PO ONE (21:28)
[2023-09-05] MEDS: BUDESONIDE/FORMETEROL FUMARATE 160/4.5 mcg INHALER IH SCH (21:28)
[2023-09-06 07:22] LABS: BASO % 0.9 % (0-2.0); EOS % 4.1 % (0-4.5); HEMATOCRIT 38.7 % (35.4-49); HEMOGLOBIN 12.9 GM/dL (11.7-16.9); LYMPH % 9.8 % (8-40); MCH 30.4 pg (25.7-33.7); MCHC 33.4 g/dl (32.0-35.9); MEAN CELL VOLUME 91.2 fl (80-96); MONO % 9.5 % (3.8-10.2); NEUT % 75.7 % (42.8-82.8); PLATELET COUNT 121 10^3/uL (134-434); RBC 4.25 M/mm3 (4.00-5.60); RDW 16.4 % (11.9-15.9); WHITE BLOOD COUNT 8.4 K/mm3 (4.0-10.0)
[2023-09-06 07:37] LABS: POTASSIUM 3.5 mmol/L (3.5-5.1)
[2023-09-06 07:52] LABS: ALBUMIN 3.3 g/dl (3.4-5.0); BLOOD UREA NITROGEN 29.2 mg/dL (7-18); MAGNESIUM 1.7 mg/dL (1.8-2.4)
[2023-09-06 07:56] LABS: PHOSPHOROUS 3.8 mg/dL (2.5-4.9)
[2023-09-06] MEDS: TAMSULOSIN HCL 0.4 MG CAP PO SCH ×2 (08:52→21:46)
[2023-09-06] MEDS: ASPIRIN COATED 81 MG TABLET.EC PO SCH (09:27)
[2023-09-06] MEDS ORDERED: SACUBITRIL/VALSARTAN 24 MG-26 MG TABLET PO SCH (10:00)
[2023-09-06] MEDS: SACUBITRIL/VALSARTAN 24 MG-26 MG TABLET PO SCH (11:02)
[2023-09-06] MEDS: FUROSEMIDE 40 MG/4 ML INJECTABLE VIAL IVPUSH SCH ×2 (11:03)
[2023-09-06] MEDS: TIOTROPIUM BROMIDE 2.5 MCG (SPIRIVA) RESPIMAT INHALER IH SCH (11:33)
[2023-09-06] MEDS: MAGNESIUM SULF 50% (8.12 MEQ/2 ML-1 GM VIAL) IVPB ONE (14:43)
[2023-09-06] MEDS ORDERED: DUTASTERIDE 0.5 MG CAP (FP) PO SCH (16:17)
[2023-09-06] MEDS: DUTASTERIDE 0.5 MG CAP (FP) PO SCH ×2 (16:37→18:56)
[2023-09-06] MEDS: hydrOXYzine PAMOATE 25 MG CAPSULE (FP) PO SCH (21:54)
[2023-09-07 07:39] LABS: POTASSIUM 3.5 mmol/L (3.5-5.1)
[2023-09-07 07:41] LABS: INR 1.41 (0.83-1.09); PROTHROMBIN TIME (PATIENT) 16.1 SEC (9.7-13.0)
[2023-09-07 07:46] LABS: CALCIUM 8.6 mg/dL (8.5-10.1)
[2023-09-07 07:47] LABS: BLOOD UREA NITROGEN 24.4 mg/dL (7-18)
[2023-09-07 07:49] LABS: BASO % 0.4 % (0-2.0); CREATININE 0.8 mg/dL (0.55-1.3); EOS % 4.7 % (0-4.5); HEMATOCRIT 36.9 % (35.4-49); HEMOGLOBIN 12.3 GM/dL (11.7-16.9); LYMPH % 9.7 % (8-40); MCHC 33.4 g/dl (32.0-35.9); MEAN CELL VOLUME 90.1 fl (80-96); MEAN PLT VOLUME 8.9 fl (7.5-11.1); MONO % 9.6 % (3.8-10.2); NEUT % 75.6 % (42.8-82.8); PLATELET COUNT 120 10^3/uL (134-434); RDW 16.4 % (11.9-15.9); WHITE BLOOD COUNT 7.9 K/mm3 (4.0-10.0)
[2023-09-07 07:51] LABS: TOT PROT 5.6 g/dl (6.4-8.2)
[2023-09-07] MEDS: FUROSEMIDE 40 MG/4 ML INJECTABLE VIAL IVPUSH SCH (11:14)
[2023-09-07] MEDS: POLYETHYLENE GLYCOL (HEALTHYLAX) 3350 17 GM PACKET PO SCH (14:05)
[2023-09-09 07:09] LABS: BASO % 0.5 % (0-2.0); EOS % 4.3 % (0-4.5); HEMOGLOBIN 13.4 GM/dL (11.7-16.9); LYMPH % 13.2 % (8-40); MCH 29.5 pg (25.7-33.7); MCHC 32.6 g/dl (32.0-35.9); MEAN CELL VOLUME 90.5 fl (80-96); MEAN PLT VOLUME 9.3 fl (7.5-11.1); MONO % 9.7 % (3.8-10.2); NEUT % 72.3 % (42.8-82.8); PLATELET COUNT 147 10^3/uL (134-434); RBC 4.53 M/mm3 (4.00-5.60); RDW 15.9 % (11.9-15.9); WHITE BLOOD COUNT 8.6 K/mm3 (4.0-10.0)
[2023-09-09 07:20] LABS: CALCIUM 9.1 mg/dL (8.5-10.1)
[2023-09-09 07:21] LABS: ALBUMIN 3.4 g/dl (3.4-5.0); BLOOD UREA NITROGEN 15.9 mg/dL (7-18); MAGNESIUM 1.7 mg/dL (1.8-2.4)
[2023-09-09 07:24] LABS: CREATININE 0.8 mg/dL (0.55-1.3); PHOSPHOROUS 2.8 mg/dL (2.5-4.9)
[2023-09-09 07:25] LABS: BILIRUBIN,TOTAL 1.7 mg/dL (0.2-1); TOT PROT 6.4 g/dl (6.4-8.2)
[2023-09-09] MEDS: MAGNESIUM SULFATE IN WATER 2 GM/50 ML IVPB IVPB ONE (23:08)
[2023-09-11] MEDS: metoPROLOL SUCCINATE 25 MG TAB.SR.24H (FP) PO SCH (11:18)
[2023-09-11 11:54] LABS: POTASSIUM 3.8 mmol/L (3.5-5.1)
[2023-09-11 11:55] LABS: CALCIUM 9.3 mg/dL (8.5-10.1)
[2023-09-11 11:56] LABS: BLOOD UREA NITROGEN 15.6 mg/dL (7-18)
[2023-09-11 11:59] LABS: CREATININE 0.8 mg/dL (0.55-1.3)
[2023-09-11] MEDS: BISOPROLOL FUMARATE PO SCH (15:20)
[2023-09-11 18:22] VITALS: RESP 20
[2023-09-12 06:32] VITALS: BP 116/79; PULSE 104; TEMP 98.2
[2023-09-13 16:03] VITALS: BMI 27.9
== END 2023-09-12 11:13 | disposition home or self-care (01) | DRG 291 ==
LOC: JER 09:55 → JERBED 13:28 → J4W 15:02
PROVIDERS: ADMIT Internal Medicine; ATTEND Internal Medicine
DX: I11.0 Hypertensive heart disease with heart failure (principal); I50.33 Acute on chronic diastolic (congestive) heart failure; I47.20 Ventricular tachycardia, unspecified; J84.9 Interstitial pulmonary disease, unspecified; N40.0 Benign prostatic hyperplasia without lower urinary tract symptoms; I25.10 Atherosclerotic heart disease of native coronary artery without angina pectoris; K57.90 Diverticulosis of intestine, part unspecified, without perforation or abscess without bleeding; E78.5 Hyperlipidemia, unspecified; K80.20 Calculus of gallbladder without cholecystitis without obstruction; J44.9 Chronic obstructive pulmonary disease, unspecified; I27.20 Pulmonary hypertension, unspecified; Z95.1 Presence of aortocoronary bypass graft
CPT/HCPCS: 0241U-QW; 36415; 71045-TC-FY; 71275-TC; 76705-TC; 80048; 80053; 80061; 83036; 83735; 83880; 84100; 84443; 84484; 85025; 85610; 86704; 86803; 87340; 87517; 93005; 93010; 93306-TC; 93975; 94761; 97116-GP; 97162-GP; 99285-25; Q9967

== ENCOUNTER 2024-02-27 10:40 | Inpatient (IN) | payer OTHER, MEDICARE ==
[2024-02-27] MEDS ORDERED: MAGNESIUM 1GM/D5W - 1 GM/100 ML IVPB IVPB ONE (11:28)
[2024-02-27] MEDS: SODIUM CHLORIDE 0.9% 500 ML INFUS.BAG IV ONE (11:45)
[2024-02-27] MEDS: MAGNESIUM 1GM/D5W - 1 GM/100 ML IVPB IVPB ONE (11:45)
[2024-02-27 11:57] LABS: VENOUS BASE EXCESS 8.8 mmol/L (-2-2); VENOUS PCO2 62.8 mmHg (38-52); VENOUS PH 7.377 (7.310-7.410)
[2024-02-27 11:59] LABS: BASO % 0.4 % (0-2.0); EOS % 3.2 % (0-4.5); HEMATOCRIT 36.2 % (35.4-49); HEMOGLOBIN 11.9 GM/dL (11.7-16.9); LYMPH % 8.5 % (8-40); MCH 29.6 pg (25.7-33.7); MEAN CELL VOLUME 89.7 fl (80-96); MEAN PLT VOLUME 9.1 fl (7.5-11.1); MONO % 10.4 % (3.8-10.2); NEUT % 77.5 % (42.8-82.8); PLATELET COUNT 99 10^3/uL (134-434); RBC 4.03 M/mm3 (4.00-5.60); RDW 15.5 % (11.9-15.9); WHITE BLOOD COUNT 8.2 K/mm3 (4.0-10.0)
[2024-02-27 12:17] LABS: POTASSIUM 4.5 mmol/L (3.5-5.1)
[2024-02-27 12:19] LABS: ALBUMIN 3.5 g/dl (3.4-5.0); CALCIUM 9.4 mg/dL (8.5-10.1); MAGNESIUM 2.4 mg/dL (1.8-2.4)
[2024-02-27 12:23] LABS: CREATININE 1.6 mg/dL (0.55-1.3)
[2024-02-27 12:24] LABS: BILIRUBIN,TOTAL 1.1 mg/dL (0.2-1); TOT PROT 6.6 g/dl (6.4-8.2)
[2024-02-27 12:28] LABS: N-TERMINAL BNP 8097.6 pg/ml (5-450)
[2024-02-27] MEDS: FUROSEMIDE 40 MG/4 ML INJECTABLE VIAL IVPUSH SCH (18:18)
[2024-02-27] MEDS: FLUTICASONE/UMECLIDIN/VILANTER(100-62.5-25 TRELEGY ELLIPTA) INAHLER IH SCH (18:49)
[2024-02-27] MEDS: HEPARIN NA (PORCINE) 5,000 UNITS/ML 1ML VIAL SQ SCH (21:45)
[2024-02-27] MEDS: POLYETHYLENE GLYCOL (HEALTHYLAX) 3350 17 GM PACKET PO SCH (21:45)
[2024-02-27] MEDS: ATORVASTATIN CA 40 MG TABLET (FP) PO SCH (21:45)
[2024-02-28 00:49] VITALS: BMI 28.1
[2024-02-28 07:41] LABS: BASO % 0.5 % (0-2.0); EOS % 5.5 % (0-4.5); HEMATOCRIT 37.4 % (35.4-49); HEMOGLOBIN 12.2 GM/dL (11.7-16.9); LYMPH % 10.1 % (8-40); MCH 29.6 pg (25.7-33.7); MCHC 32.6 g/dl (32.0-35.9); MEAN PLT VOLUME 9.6 fl (7.5-11.1); MONO % 8.3 % (3.8-10.2); NEUT % 75.6 % (42.8-82.8); PLATELET COUNT 100 10^3/uL (134-434); RBC 4.11 M/mm3 (4.00-5.60); RDW 15.5 % (11.9-15.9); WHITE BLOOD COUNT 7.3 K/mm3 (4.0-10.0)
[2024-02-28] MEDS: TAMSULOSIN HCL 0.4 MG CAP PO SCH (08:05)
[2024-02-28 08:09] LABS: POTASSIUM 4.3 mmol/L (3.5-5.1)
[2024-02-28 08:11] LABS: CALCIUM 8.9 mg/dL (8.5-10.1)
[2024-02-28 08:12] LABS: ALBUMIN 3.5 g/dl (3.4-5.0); MAGNESIUM 2.3 mg/dL (1.8-2.4)
[2024-02-28 08:15] LABS: CREATININE 1.3 mg/dL (0.55-1.3)
[2024-02-28 08:16] LABS: BILIRUBIN,TOTAL 1.2 mg/dL (0.2-1); TOT PROT 6.7 g/dl (6.4-8.2)
[2024-02-28] MEDS ORDERED: DUTASTERIDE 0.5 MG CAP (FP) PO SCH (10:00)
[2024-02-28] MEDS: ASPIRIN COATED 81 MG TABLET.EC PO SCH (10:53)
[2024-02-28] MEDS: ATENOLOL 50 MG TABLET (FP) PO SCH ×2 (10:53→11:03)
[2024-02-28] MEDS: TIOTROPIUM BROMIDE 2.5 MCG (SPIRIVA) RESPIMAT INHALER IH SCH (10:55)
[2024-02-28] MEDS: LEVALBUTEROL HCL 0.31 MG/3 ML VIAL.NEB IH PRN (11:22)
[2024-02-28] MEDS: BUDESONIDE/FORMETEROL FUMARATE 160/4.5 mcg INHALER IH SCH (12:14)
[2024-02-28] MEDS: DUTASTERIDE 0.5 MG CAP (FP) PO SCH (12:15)
[2024-02-28] MEDS: SIMETHICONE 80 MG TAB.CHEW (FP) PO PRN (21:13)
[2024-02-29] MEDS: TIOTROPIUM BROMIDE 2.5 MCG (SPIRIVA) RESPIMAT INHALER IH SCH (10:37)
[2024-02-29] MEDS: hydrOXYzine PAMOATE 25 MG CAPSULE (FP) PO PRN (11:01)
[2024-02-29] MEDS: FUROSEMIDE 40 MG/4 ML INJECTABLE VIAL IVPUSH SCH (14:41)
[2024-02-29] MEDS: MAG HYDROX/AL HYDROX/SIMETH 30 ML UNIT-DOSE CUP PO PRN (17:30)
[2024-02-29 18:42] LABS: EPI CELLS 6 /uL (0-25.1); HYALINE CASTS 1 /uL (0-3.1); PH,URINE 5.5 (5.0-8.0); URINE APPEARANCE CLEAR; URINE BACTERIA 15 /uL (0-1359); URINE BILIRUBIN NEGATIVE (NEGATIVE); URINE COLOR YELLOW; URINE GLUCOSE (UA) NEGATIVE (NEGATIVE); URINE KETONE NEGATIVE (NEGATIVE); URINE LEUK ESTERASE 1+ (NEGATIVE); URINE NITRITE NEGATIVE (NEGATIVE); URINE PROTEIN TRACE (NEGATIVE); URINE RBC 11 /uL (0-23.9); URINE WBC 44 /uL (0-25.8)
[2024-03-01] MEDS: EMPAGLIFLOZIN (JARDIANCE) 10 MG TABLET PO SCH (09:09)
[2024-03-01 09:25] LABS: POTASSIUM 4.8 mmol/L (3.5-5.1)
[2024-03-01 09:27] LABS: ALBUMIN 3.5 g/dl (3.4-5.0); CALCIUM 9.6 mg/dL (8.5-10.1)
[2024-03-01 09:28] LABS: BLOOD UREA NITROGEN 59.5 mg/dL (7-18)
[2024-03-01 09:31] LABS: CREATININE 1.5 mg/dL (0.55-1.3)
[2024-03-01 09:32] LABS: BILIRUBIN,TOTAL 1.1 mg/dL (0.2-1); TOT PROT 6.3 g/dl (6.4-8.2)
[2024-03-02 08:34] LABS: POTASSIUM 4.3 mmol/L (3.5-5.1)
[2024-03-02 08:45] LABS: CALCIUM 9.9 mg/dL (8.5-10.1)
[2024-03-02 08:46] LABS: BLOOD UREA NITROGEN 55.9 mg/dL (7-18); MAGNESIUM 2.6 mg/dL (1.8-2.4)
[2024-03-02 08:49] LABS: CREATININE 1.5 mg/dL (0.55-1.3)
[2024-03-02] MEDS: ALBUTEROL SO4 HFA INHALER IH PRN (10:19)
[2024-03-03 07:36] LABS: HEMATOCRIT 34.8 % (35.4-49); HEMOGLOBIN 11.6 GM/dL (11.7-16.9); MCH 30.2 pg (25.7-33.7); MCHC 33.4 g/dl (32.0-35.9); MEAN CELL VOLUME 90.3 fl (80-96); MEAN PLT VOLUME 9.3 fl (7.5-11.1); PLATELET COUNT 99 10^3/uL (134-434); RBC 3.85 M/mm3 (4.00-5.60); RDW 15.4 % (11.9-15.9); WHITE BLOOD COUNT 6.4 K/mm3 (4.0-10.0)
[2024-03-03 07:39] LABS: POTASSIUM 4.2 mmol/L (3.5-5.1)
[2024-03-03 07:45] LABS: ALBUMIN 3.5 g/dl (3.4-5.0); CALCIUM 9.2 mg/dL (8.5-10.1)
[2024-03-03 07:46] LABS: BLOOD UREA NITROGEN 48.6 mg/dL (7-18); MAGNESIUM 2.4 mg/dL (1.8-2.4)
[2024-03-03 07:49] LABS: CREATININE 1.3 mg/dL (0.55-1.3)
[2024-03-03 07:51] LABS: TOT PROT 6.6 g/dl (6.4-8.2)
[2024-03-03] MEDS: FUROSEMIDE 40 MG/4 ML INJECTABLE VIAL IVPUSH SCH (15:06)
[2024-03-04] MEDS: FUROSEMIDE 40 MG/4 ML INJECTABLE VIAL IVPUSH SCH (10:00)
[2024-03-04 14:19] LABS: INR 1.36 (0.83-1.09); PROTHROMBIN TIME (PATIENT) 15.2 SEC (9.7-13.0)
[2024-03-04 14:22] LABS: ACTIVATED PTT 31.4 SECONDS (25.2-36.5)
[2024-03-04] MEDS: METOLAZONE 2.5 MG TABLET (FP) PO SCH (14:42)
[2024-03-05 07:11] LABS: POTASSIUM 3.8 mmol/L (3.5-5.1)
[2024-03-05 07:23] LABS: CALCIUM 10.2 mg/dL (8.5-10.1)
[2024-03-05 07:24] LABS: ALBUMIN 3.9 g/dl (3.4-5.0); BLOOD UREA NITROGEN 38.9 mg/dL (7-18); MAGNESIUM 2.4 mg/dL (1.8-2.4)
[2024-03-05 07:27] LABS: CREATININE 1.3 mg/dL (0.55-1.3)
[2024-03-05 07:28] LABS: BILIRUBIN,TOTAL 1.3 mg/dL (0.2-1)
[2024-03-05 07:29] LABS: TOT PROT 7.2 g/dl (6.4-8.2)
[2024-03-05 13:02] LABS: BODY FLUID MESOTHELIAL 3 %; BODY FLUID MONOCYTE 82 %
[2024-03-05 13:05] LABS: BF WBC & OTHER NUCLEATED CELLS 406 /mm3
[2024-03-05] MEDS ORDERED: ACETAMINOPHEN 1000 MG/100 ML BAG IVPB PRN (15:33)
[2024-03-05] MEDS: traMADol HCL 50 MG TABLET PO PRN (15:38)
[2024-03-05] MEDS: ACETAMINOPHEN 325 MG TABLET (FP) PO PRN (19:20)
[2024-03-06 08:17] LABS: BASO % 0.3 % (0-2.0); EOS % 1.3 % (0-4.5); HEMATOCRIT 40.3 % (35.4-49); HEMOGLOBIN 12.8 GM/dL (11.7-16.9); LYMPH % 6.5 % (8-40); MCHC 31.8 g/dl (32.0-35.9); MEAN CELL VOLUME 91.1 fl (80-96); MEAN PLT VOLUME 9.4 fl (7.5-11.1); MONO % 7.4 % (3.8-10.2); NEUT % 84.5 % (42.8-82.8); PLATELET COUNT 111 10^3/uL (134-434); RBC 4.43 M/mm3 (4.00-5.60); WHITE BLOOD COUNT 12.8 K/mm3 (4.0-10.0)
[2024-03-06 08:31] LABS: POTASSIUM 3.6 mmol/L (3.5-5.1)
[2024-03-06 08:34] LABS: ALBUMIN 3.7 g/dl (3.4-5.0); BLOOD UREA NITROGEN 34.8 mg/dL (7-18); CALCIUM 9.7 mg/dL (8.5-10.1)
[2024-03-06 08:38] LABS: CREATININE 1.3 mg/dL (0.55-1.3)
[2024-03-06 14:08] LABS: BODY FLUID ALBUMIN 2.2 g/dL (Not Estab.)
[2024-03-07 07:11] LABS: BASO % 0.3 % (0-2.0); EOS % 3.7 % (0-4.5); HEMATOCRIT 35.6 % (35.4-49); HEMOGLOBIN 11.6 GM/dL (11.7-16.9); LYMPH % 8.8 % (8-40); MCH 29.5 pg (25.7-33.7); MCHC 32.7 g/dl (32.0-35.9); MEAN CELL VOLUME 90.4 fl (80-96); MEAN PLT VOLUME 10.1 fl (7.5-11.1); MONO % 9.1 % (3.8-10.2); NEUT % 78.1 % (42.8-82.8); PLATELET COUNT 99 10^3/uL (134-434); RBC 3.94 M/mm3 (4.00-5.60); RDW 15.3 % (11.9-15.9); WHITE BLOOD COUNT 8.6 K/mm3 (4.0-10.0)
[2024-03-07 07:24] LABS: POTASSIUM 3.2 mmol/L (3.5-5.1)
[2024-03-07 07:33] LABS: ALBUMIN 3.2 g/dl (3.4-5.0); BILIRUBIN,TOTAL 1.3 mg/dL (0.2-1); BLOOD UREA NITROGEN 49.1 mg/dL (7-18); CALCIUM 9.3 mg/dL (8.5-10.1); TOT PROT 6.2 g/dl (6.4-8.2)
[2024-03-07 07:36] LABS: CREATININE 1.5 mg/dL (0.55-1.3)
[2024-03-07] MEDS: TORSEMIDE 20 MG TABLET (FP) PO SCH (14:04)
[2024-03-07] MEDS: POTASSIUM CHLORIDE ORAL LIQUID 20 MEQ/15 ML PO ONE (16:55)
[2024-03-09 09:58] LABS: POTASSIUM 3.3 mmol/L (3.5-5.1)
[2024-03-09 10:00] LABS: BLOOD UREA NITROGEN 45.9 mg/dL (7-18); CALCIUM 9.4 mg/dL (8.5-10.1)
[2024-03-09 10:03] LABS: CREATININE 1.4 mg/dL (0.55-1.3)
[2024-03-10] MEDS: CARVEDILOL 6.25 MG TABLET (FP) PO SCH (09:40)
[2024-03-10 11:34] LABS: POTASSIUM 3.4 mmol/L (3.5-5.1)
[2024-03-10 11:41] LABS: BASO % 0.3 % (0-2.0); EOS % 4.5 % (0-4.5); HEMOGLOBIN 11.6 GM/dL (11.7-16.9); LYMPH % 6.3 % (8-40); MCH 29.2 pg (25.7-33.7); MCHC 32.2 g/dl (32.0-35.9); MEAN CELL VOLUME 90.7 fl (80-96); MEAN PLT VOLUME 9.9 fl (7.5-11.1); MONO % 8.3 % (3.8-10.2); NEUT % 80.6 % (42.8-82.8); PLATELET COUNT 127 10^3/uL (134-434); RBC 3.97 M/mm3 (4.00-5.60); RDW 15.7 % (11.9-15.9); WHITE BLOOD COUNT 8.9 K/mm3 (4.0-10.0)
[2024-03-10 11:42] LABS: CALCIUM 9.2 mg/dL (8.5-10.1)
[2024-03-10 11:43] LABS: BLOOD UREA NITROGEN 48.2 mg/dL (7-18)
[2024-03-10 11:48] LABS: CREATININE 1.3 mg/dL (0.55-1.3)
[2024-03-10] MEDS: POTASSIUM CHLORIDE ORAL LIQUID 20 MEQ/15 ML PO ONE (15:28)
[2024-03-10] MEDS: CARVEDILOL 3.125 MG TABLET (FP) PO SCH (21:13)
[2024-03-11] MEDS: EMPAGLIFLOZIN (JARDIANCE) 10 MG TABLET PO SCH (06:28)
[2024-03-12 09:02] LABS: POTASSIUM 3.6 mmol/L (3.5-5.1)
[2024-03-12 09:16] LABS: CALCIUM 9.1 mg/dL (8.5-10.1)
[2024-03-12 09:17] LABS: ALBUMIN 3.3 g/dl (3.4-5.0); BLOOD UREA NITROGEN 38.8 mg/dL (7-18)
[2024-03-12 09:20] LABS: BILIRUBIN,TOTAL 1.1 mg/dL (0.2-1); TOT PROT 6.4 g/dl (6.4-8.2)
[2024-03-12 10:19] VITALS: BP 95/72; PULSE 98; RESP 19; TEMP 97.7
== END 2024-03-12 12:37 | disposition home health service (06) | DRG 291 ==
LOC: JER 10:40 → JERBED 14:04 → J4W 19:26
PROVIDERS: ADMIT Family Medicine; ATTEND Family Medicine
PROC: 0B9N30Z Drainage of Right Pleura with Drainage Device, Percutaneous Approach (ICD-10-PCS; principal; 2024-03-05)
DX: I13.0 Hypertensive heart and chronic kidney disease with heart failure and stage 1 through stage 4 chronic kidney disease, or unspecified chronic kidney disease (principal); I50.23 Acute on chronic systolic (congestive) heart failure; J84.9 Interstitial pulmonary disease, unspecified; J96.11 Chronic respiratory failure with hypoxia; J90 Pleural effusion, not elsewhere classified; Z99.81 Dependence on supplemental oxygen; D69.6 Thrombocytopenia, unspecified; I25.10 Atherosclerotic heart disease of native coronary artery without angina pectoris; Z95.1 Presence of aortocoronary bypass graft; N18.9 Chronic kidney disease, unspecified; E87.70 Fluid overload, unspecified; J44.9 Chronic obstructive pulmonary disease, unspecified; I48.91 Unspecified atrial fibrillation; I27.20 Pulmonary hypertension, unspecified; I95.9 Hypotension, unspecified
CPT/HCPCS: 32557; 36415; 71045-TC-FY; 71046-TC-FY; 71250-TC; 76775-TC; 80048; 80053; 80061; 81003; 82042; 82150; 82465; 82803; 82945; 82962; 83036; 83615; 83735; 83880; 83986; 84157; 84443; 84478; 84484; 85025; 85027; 85610; 85730; 87070; 87075; 87102; 87116; 87205; 87206; 87210; 88108; 88305-TC; 93005; 93010; 93306-TC; 97116-GP; 97162-GP; 99285-25; J1644

== ENCOUNTER 2024-09-12 08:43 | Inpatient (IN) | payer OTHER, MEDICARE ==
[2024-09-12 09:19] VITALS: BMI 26.9
[2024-09-12 10:02] LABS: ABSOLUTE IMMATURE GRANULOCYTES 0.08 x10^3/uL (0.0-0.031); BASOPHILS # 0.04 x10^3/uL (0.01-0.08); EOSINOPHILS # 0.21 x10^3/uL (0.04-0.54); HEMATOCRIT 38.6 % (40.1-51.0); HEMOGLOBIN 11.6 g/dL (13.7-17.5); MCHC 30.1 g/dl (32.3-36.5); MEAN CELL VOLUME 92.6 fl (79.0-92.2); MEAN PLT VOLUME 10.8 fl (9.4-12.4); MONOCYTE # 0.92 x10^3/uL (0.30-0.82); MONOCYTE % 8.8 % (5.3-12.2); PLATELET COUNT 147 x10^3/uL (163-337)
[2024-09-12 10:10] LABS: INR 1.48 (0.83-1.09); PROTHROMBIN TIME (PATIENT) 16.3 SEC (9.7-13.0)
[2024-09-12 10:13] LABS: ACTIVATED PTT 32.6 SECONDS (25.2-36.5)
[2024-09-12 10:27] LABS: POTASSIUM 3.5 mmol/L (3.5-5.1)
[2024-09-12 10:29] LABS: BLOOD UREA NITROGEN 36.5 mg/dL (7-18); CALCIUM 9.2 mg/dL (8.5-10.1)
[2024-09-12 10:30] LABS: MAGNESIUM 2.3 mg/dL (1.8-2.4)
[2024-09-12 10:33] LABS: CREATININE 1.1 mg/dL (0.55-1.3); PHOSPHOROUS 3.1 mg/dL (2.5-4.9)
[2024-09-12 10:34] LABS: BILIRUBIN,TOTAL 1.1 mg/dL (0.2-1)
[2024-09-12 10:35] LABS: TOT PROT 6.3 g/dl (6.4-8.2)
[2024-09-12 10:38] LABS: N-TERMINAL BNP 5866.7 pg/ml (5-450)
[2024-09-12] MEDS: ALBUTEROL SO4 2.5/IPRATROPIUM 0.5 INH SOL 3 ML VIAL.NEB. NEB SCH (15:47)
[2024-09-12] MEDS: MIDODRINE HCL 5 MG TABLET PO SCH (19:25)
[2024-09-12] MEDS: CARVEDILOL 3.125 MG TABLET (FP) PO SCH (21:29)
[2024-09-12] MEDS: BUDESONIDE/FORMETEROL FUMARATE 160/4.5 mcg INHALER IH SCH (21:30)
[2024-09-12] MEDS ORDERED: ATORVASTATIN CA 40 MG TABLET (FP) PO SCH (22:00)
[2024-09-13] MEDS: FUROSEMIDE 40 MG/4 ML INJECTABLE VIAL IVPUSH SCH ×2 (05:58→11:02)
[2024-09-13 07:18] LABS: ABSOLUTE IMMATURE GRANULOCYTES 0.07 x10^3/uL (0.0-0.031); BASOPHILS # 0.04 x10^3/uL (0.01-0.08); EOSINOPHILS # 0.41 x10^3/uL (0.04-0.54); HEMATOCRIT 34.6 % (40.1-51.0); HEMOGLOBIN 10.7 g/dL (13.7-17.5); MCHC 30.9 g/dl (32.3-36.5); MEAN PLT VOLUME 11.4 fl (9.4-12.4); MONOCYTE # 0.69 x10^3/uL (0.30-0.82); MONOCYTE % 8.5 % (5.3-12.2); PLATELET COUNT 138 x10^3/uL (163-337); RDW 15.9 % (12.2-16.6)
[2024-09-13 07:32] LABS: POTASSIUM 3.2 mmol/L (3.5-5.1)
[2024-09-13 07:50] LABS: ALBUMIN 2.8 g/dl (3.4-5.0); CALCIUM 8.8 mg/dL (8.5-10.1)
[2024-09-13 07:51] LABS: BLOOD UREA NITROGEN 32.9 mg/dL (7-18); MAGNESIUM 2.3 mg/dL (1.8-2.4)
[2024-09-13 07:52] LABS: PHOSPHOROUS 3.8 mg/dL (2.5-4.9)
[2024-09-13 07:55] LABS: TOT PROT 5.8 g/dl (6.4-8.2)
[2024-09-13] MEDS: TAMSULOSIN HCL 0.4 MG CAP PO SCH (10:21)
[2024-09-13] MEDS: MIDODRINE HCL 5 MG TABLET PO SCH (10:21)
[2024-09-13] MEDS: ASPIRIN COATED 81 MG TABLET.EC PO SCH (10:21)
[2024-09-13] MEDS: DUTASTERIDE 0.5 MG CAP (FP) PO SCH (10:27)
[2024-09-13] MEDS: NEBIVOLOL 2.5 MG TABLET (FP) PO SCH (13:52)
[2024-09-14 07:31] LABS: ABSOLUTE IMMATURE GRANULOCYTES 0.05 x10^3/uL (0.0-0.031); BASOPHILS # 0.05 x10^3/uL (0.01-0.08); EOSINOPHIL % 4.8 % (0.8-7.0); EOSINOPHILS # 0.44 x10^3/uL (0.04-0.54); HEMATOCRIT 36.6 % (40.1-51.0); HEMOGLOBIN 11.1 g/dL (13.7-17.5); MCHC 30.3 g/dl (32.3-36.5); MEAN CELL VOLUME 91.5 fl (79.0-92.2); MEAN PLT VOLUME 11.3 fl (9.4-12.4); MONOCYTE # 0.75 x10^3/uL (0.30-0.82); MONOCYTE % 8.1 % (5.3-12.2); PLATELET COUNT 137 x10^3/uL (163-337); RDW 15.8 % (12.2-16.6)
[2024-09-14 07:52] LABS: POTASSIUM 3.6 mmol/L (3.5-5.1)
[2024-09-14 07:56] LABS: BLOOD UREA NITROGEN 31.8 mg/dL (7-18); CALCIUM 9.4 mg/dL (8.5-10.1)
[2024-09-14 07:58] LABS: MAGNESIUM 2.4 mg/dL (1.8-2.4)
[2024-09-14 07:59] LABS: CREATININE 1.1 mg/dL (0.55-1.3)
[2024-09-14 08:00] LABS: BILIRUBIN,TOTAL 1.2 mg/dL (0.2-1); TOT PROT 6.2 g/dl (6.4-8.2)
[2024-09-14] MEDS: POTASSIUM CHLORIDE ORAL LIQUID 20 MEQ/15 ML PO ONE (09:33)
[2024-09-14] MEDS: POTASSIUM CHLORIDE TABS 20 MEQ TABLET.ER (FP) PO SCH (09:33)
[2024-09-15 07:49] LABS: ABSOLUTE IMMATURE GRANULOCYTES 0.05 x10^3/uL (0.0-0.031); BASOPHILS # 0.04 x10^3/uL (0.01-0.08); EOSINOPHIL % 4.4 % (0.8-7.0); EOSINOPHILS # 0.48 x10^3/uL (0.04-0.54); HEMOGLOBIN 11.1 g/dL (13.7-17.5); MEAN CELL VOLUME 92.7 fl (79.0-92.2); MEAN PLT VOLUME 10.9 fl (9.4-12.4); MONOCYTE # 0.88 x10^3/uL (0.30-0.82); PLATELET COUNT 137 x10^3/uL (163-337); RDW 15.9 % (12.2-16.6)
[2024-09-15 08:01] LABS: POTASSIUM 4.6 mmol/L (3.5-5.1)
[2024-09-15 08:10] LABS: CALCIUM 9.6 mg/dL (8.5-10.1)
[2024-09-15 08:11] LABS: BLOOD UREA NITROGEN 32.2 mg/dL (7-18)
[2024-09-15 08:22] LABS: CREATININE 1.1 mg/dL (0.55-1.3)
[2024-09-15] MEDS: MIDODRINE HCL 5 MG TABLET PO SCH (14:37)
[2024-09-16 06:44] LABS: ABSOLUTE IMMATURE GRANULOCYTES 0.07 x10^3/uL (0.0-0.031); BASOPHILS # 0.06 x10^3/uL (0.01-0.08); EOSINOPHIL % 4.1 % (0.8-7.0); EOSINOPHILS # 0.49 x10^3/uL (0.04-0.54); HEMATOCRIT 38.3 % (40.1-51.0); HEMOGLOBIN 11.5 g/dL (13.7-17.5); MEAN CELL VOLUME 93.6 fl (79.0-92.2); MEAN PLT VOLUME 10.9 fl (9.4-12.4); MONOCYTE # 0.91 x10^3/uL (0.30-0.82); MONOCYTE % 7.6 % (5.3-12.2); PLATELET COUNT 154 x10^3/uL (163-337); RDW 15.9 % (12.2-16.6)
[2024-09-16 07:06] LABS: POTASSIUM 4.8 mmol/L (3.5-5.1)
[2024-09-16 07:16] LABS: BLOOD UREA NITROGEN 31.9 mg/dL (7-18)
[2024-09-16 07:19] LABS: CREATININE 1.1 mg/dL (0.55-1.3)
[2024-09-16] MEDS: METOLAZONE 5 MG TABLET PO SCH ×2 (10:12→13:56)
[2024-09-16] MEDS: FUROSEMIDE 40 MG/4 ML INJECTABLE VIAL IVPUSH SCH (14:56)
[2024-09-17] MEDS: DIGOXIN 0.25 MG TABLET PO ONE ×2 (10:36→16:36)
[2024-09-17] MEDS: TIOTROPIUM BROMIDE 2.5 MCG (SPIRIVA) RESPIMAT INHALER IH SCH (11:53)
[2024-09-17] MEDS: ATORVASTATIN CA 20 MG TABLET (FP) PO SCH (21:07)
[2024-09-17] MEDS ORDERED: ATORVASTATIN CA 40 MG TABLET (FP) PO SCH (22:00)
[2024-09-18] MEDS: MIDODRINE HCL 5 MG TABLET PO SCH (06:48)
[2024-09-18] MEDS: DIGOXIN 0.125 MG TABLET PO SCH (09:20)
[2024-09-18] MEDS: POLYETHYLENE GLYCOL (HEALTHYLAX) 3350 17 GM PACKET PO SCH (13:18)
[2024-09-18 13:58] LABS: POTASSIUM 3.3 mmol/L (3.5-5.1)
[2024-09-18 14:04] LABS: CALCIUM 9.6 mg/dL (8.5-10.1)
[2024-09-18 14:05] LABS: BLOOD UREA NITROGEN 39.2 mg/dL (7-18); MAGNESIUM 2.4 mg/dL (1.8-2.4)
[2024-09-18 14:08] LABS: CREATININE 1.3 mg/dL (0.55-1.3)
[2024-09-18 14:59] LABS: ALBUMIN 3.2 g/dl (3.4-5.0)
[2024-09-18 15:01] LABS: BILIRUBIN,DIRECT 0.5 mg/dL (0.0-0.2)
[2024-09-18 15:04] LABS: TOT PROT 6.6 g/dl (6.4-8.2)
[2024-09-18 15:12] LABS: BODY FLUID MESOTHELIAL 8 %; BODY FLUID MONOCYTE 25 %
[2024-09-19 06:49] LABS: INR 1.65 (0.83-1.09)
[2024-09-19 06:50] LABS: ABSOLUTE IMMATURE GRANULOCYTES 0.06 x10^3/uL (0.0-0.031); BASOPHILS # 0.05 x10^3/uL (0.01-0.08); EOSINOPHIL % 3.7 % (0.8-7.0); EOSINOPHILS # 0.35 x10^3/uL (0.04-0.54); HEMATOCRIT 36.3 % (40.1-51.0); HEMOGLOBIN 11.3 g/dL (13.7-17.5); MCHC 31.1 g/dl (32.3-36.5); MEAN CELL VOLUME 91.2 fl (79.0-92.2); MONOCYTE # 0.94 x10^3/uL (0.30-0.82); MONOCYTE % 9.8 % (5.3-12.2); PLATELET COUNT 163 x10^3/uL (163-337); RDW 15.9 % (12.2-16.6)
[2024-09-19 07:01] LABS: CHLORIDE 93 mmol/L (98-107); SODIUM 138 mmol/L (136-145)
[2024-09-19 07:18] LABS: BLOOD UREA NITROGEN 33.5 mg/dL (7-18)
[2024-09-19 07:20] LABS: CALCIUM 9.6 mg/dL (8.5-10.1); CO2 40 mmol/L (21-32); GLUCOSE,RANDOM 95 mg/dL (74-106)
[2024-09-19 07:24] LABS: CREATININE 1.1 mg/dL (0.55-1.3); SGOT/AST 48 U/L (15-37); SGPT/ALT 54 U/L (13-61)
[2024-09-19 07:25] LABS: BILIRUBIN,TOTAL 1.1 mg/dL (0.2-1); TOT PROT 6.3 g/dl (6.4-8.2)
[2024-09-19 07:26] LABS: ALK PHOS 141 U/L (45-117); HEPATITIS B SURF AG NON-MATERN NON-REACTIVE (NONREACTIVE)
[2024-09-19 07:31] LABS: ANION GAP 6 mmol/L (4-13); POTASSIUM 2.6 mmol/L (3.5-5.1)
[2024-09-19] MEDS: POTASSIUM CHLORIDE ORAL LIQUID 20 MEQ/15 ML PO ONE ×2 (09:26→20:00)
[2024-09-19] MEDS: POTASSIUM CHLORIDE TABS 20 MEQ TABLET.ER (FP) PO SCH (10:07)
[2024-09-19] MEDS: KCL 10 MEQ IVPB 10 MEQ/100 ML INFUS.BAG IVPB SCH (10:11)
[2024-09-19] MEDS: PANTOPRAZOLE 40 MG TABLET PO SCH (10:11)
[2024-09-19] MEDS: PHYTONADIONE 10 MG/1 ML AMP IVPB ONE (11:04)
[2024-09-19 11:21] LABS: GAMMA GLUTAMYL TRANSPEPTIDASE 39 U/L (5-85)
[2024-09-19 11:24] LABS: BILIRUBIN,DIRECT 0.5 mg/dL (0.0-0.2)
[2024-09-19 11:58] LABS: HCV DIAGNOSTIC IN-HOUSE W/RFLX NON-REACTIVE (NONREACTIVE)
[2024-09-19 16:07] LABS: BODY FLUID ALBUMIN 1.6 g/dL (Not Estab.)
[2024-09-20 06:53] LABS: ABSOLUTE IMMATURE GRANULOCYTES 0.04 x10^3/uL (0.0-0.031); BASOPHILS # 0.04 x10^3/uL (0.01-0.08); EOSINOPHIL % 3.8 % (0.8-7.0); EOSINOPHILS # 0.34 x10^3/uL (0.04-0.54); HEMATOCRIT 35.5 % (40.1-51.0); HEMOGLOBIN 10.9 g/dL (13.7-17.5); MCHC 30.7 g/dl (32.3-36.5); MEAN CELL VOLUME 91.3 fl (79.0-92.2); MEAN PLT VOLUME 11.1 fl (9.4-12.4); MONOCYTE # 0.94 x10^3/uL (0.30-0.82); MONOCYTE % 10.5 % (5.3-12.2); PLATELET COUNT 153 x10^3/uL (163-337); RDW 15.8 % (12.2-16.6)
[2024-09-20 07:12] LABS: INR 1.46 (0.83-1.09); PROTHROMBIN TIME (PATIENT) 16.1 SEC (9.7-13.0)
[2024-09-20 07:16] LABS: POTASSIUM 3.3 mmol/L (3.5-5.1)
[2024-09-20 07:26] LABS: ALBUMIN 2.8 g/dl (3.4-5.0); BLOOD UREA NITROGEN 27.9 mg/dL (7-18); CALCIUM 9.3 mg/dL (8.5-10.1)
[2024-09-20 07:30] LABS: BILIRUBIN,TOTAL 0.9 mg/dL (0.2-1)
[2024-09-20 07:31] LABS: TOT PROT 5.7 g/dl (6.4-8.2)
[2024-09-20] MEDS: POTASSIUM CHLORIDE TABS 20 MEQ TABLET.ER (FP) PO SCH (13:09)
[2024-09-21 06:37] LABS: ABSOLUTE IMMATURE GRANULOCYTES 0.04 x10^3/uL (0.0-0.031); BASOPHILS # 0.06 x10^3/uL (0.01-0.08); EOSINOPHIL % 4.2 % (0.8-7.0); HEMATOCRIT 38.3 % (40.1-51.0); HEMOGLOBIN 11.6 g/dL (13.7-17.5); MCHC 30.3 g/dl (32.3-36.5); MEAN PLT VOLUME 10.7 fl (9.4-12.4); MONOCYTE # 1.08 x10^3/uL (0.30-0.82); MONOCYTE % 11.4 % (5.3-12.2); PLATELET COUNT 152 x10^3/uL (163-337); RDW 15.8 % (12.2-16.6)
[2024-09-21 06:45] LABS: POTASSIUM 3.6 mmol/L (3.5-5.1)
[2024-09-21 06:49] LABS: ALBUMIN 2.9 g/dl (3.4-5.0); BLOOD UREA NITROGEN 26.5 mg/dL (7-18); CALCIUM 9.5 mg/dL (8.5-10.1)
[2024-09-21 06:52] LABS: CREATININE 1.1 mg/dL (0.55-1.3)
[2024-09-21 06:53] LABS: BILIRUBIN,TOTAL 1.1 mg/dL (0.2-1); TOT PROT 6.1 g/dl (6.4-8.2)
[2024-09-22] MEDS: MIDODRINE HCL 5 MG TABLET PO SCH (07:07)
[2024-09-22 07:42] LABS: ABSOLUTE IMMATURE GRANULOCYTES 0.04 x10^3/uL (0.0-0.031); BASOPHILS # 0.05 x10^3/uL (0.01-0.08); EOSINOPHIL % 4.8 % (0.8-7.0); EOSINOPHILS # 0.38 x10^3/uL (0.04-0.54); HEMOGLOBIN 11.3 g/dL (13.7-17.5); MCHC 30.5 g/dl (32.3-36.5); MEAN CELL VOLUME 91.4 fl (79.0-92.2); MEAN PLT VOLUME 10.7 fl (9.4-12.4); MONOCYTE # 0.84 x10^3/uL (0.30-0.82); MONOCYTE % 10.7 % (5.3-12.2); PLATELET COUNT 148 x10^3/uL (163-337); RDW 15.9 % (12.2-16.6)
[2024-09-22 08:11] LABS: POTASSIUM 3.3 mmol/L (3.5-5.1)
[2024-09-22 08:22] LABS: ALBUMIN 2.8 g/dl (3.4-5.0); CALCIUM 9.4 mg/dL (8.5-10.1)
[2024-09-22 08:23] LABS: BLOOD UREA NITROGEN 25.7 mg/dL (7-18)
[2024-09-22 08:27] LABS: TOT PROT 5.9 g/dl (6.4-8.2)
[2024-09-22] MEDS: POTASSIUM CHLORIDE TABS 10 MEQ TABLET.ER (FP) PO SCH (09:50)
[2024-09-22] MEDS ORDERED: MIDODRINE HCL 5 MG TABLET PO SCH (10:00)
[2024-09-23] MEDS: MIDODRINE HCL 5 MG TABLET PO SCH (06:37)
[2024-09-23 08:07] LABS: ABSOLUTE IMMATURE GRANULOCYTES 0.03 x10^3/uL (0.0-0.031); BASOPHILS # 0.05 x10^3/uL (0.01-0.08); EOSINOPHIL % 4.5 % (0.8-7.0); EOSINOPHILS # 0.35 x10^3/uL (0.04-0.54); HEMATOCRIT 36.4 % (40.1-51.0); MCHC 30.2 g/dl (32.3-36.5); MEAN CELL VOLUME 90.8 fl (79.0-92.2); MEAN PLT VOLUME 10.7 fl (9.4-12.4); MONOCYTE % 10.3 % (5.3-12.2); PLATELET COUNT 139 x10^3/uL (163-337); RDW 15.5 % (12.2-16.6)
[2024-09-23 08:24] LABS: POTASSIUM 3.2 mmol/L (3.5-5.1)
[2024-09-23 08:26] LABS: ALBUMIN 2.8 g/dl (3.4-5.0); BLOOD UREA NITROGEN 24.7 mg/dL (7-18); CALCIUM 8.8 mg/dL (8.5-10.1); MAGNESIUM 2.2 mg/dL (1.8-2.4)
[2024-09-23 08:29] LABS: CREATININE 0.9 mg/dL (0.55-1.3)
[2024-09-23 08:31] LABS: TOT PROT 6.1 g/dl (6.4-8.2)
[2024-09-23] MEDS: POTASSIUM CHLORIDE ORAL LIQUID 20 MEQ/15 ML PO SCH (21:44)
[2024-09-24 07:58] LABS: POTASSIUM 3.9 mmol/L (3.5-5.1)
[2024-09-24 08:05] LABS: CALCIUM 9.4 mg/dL (8.5-10.1)
[2024-09-24 08:06] LABS: BLOOD UREA NITROGEN 26.6 mg/dL (7-18)
[2024-09-24 09:57] VITALS: PULSE 92
[2024-09-24 10:46] VITALS: BP 114/67; RESP 16; TEMP 97.3
== END 2024-09-24 10:42 | disposition home health service (06) | DRG 291 ==
LOC: JER 08:43 → JERBED 09:24 → J4W 11:18
PROVIDERS: ADMIT Internal Medicine; ATTEND Internal Medicine
PROC: 0W9G3ZX Drainage of Peritoneal Cavity, Percutaneous Approach, Diagnostic (ICD-10-PCS; principal; 2024-09-18)
DX: I13.0 Hypertensive heart and chronic kidney disease with heart failure and stage 1 through stage 4 chronic kidney disease, or unspecified chronic kidney disease (principal); I50.33 Acute on chronic diastolic (congestive) heart failure; J84.9 Interstitial pulmonary disease, unspecified; J96.11 Chronic respiratory failure with hypoxia; R18.8 Other ascites; E78.5 Hyperlipidemia, unspecified; I25.10 Atherosclerotic heart disease of native coronary artery without angina pectoris; I48.91 Unspecified atrial fibrillation; J44.9 Chronic obstructive pulmonary disease, unspecified; Z99.81 Dependence on supplemental oxygen; I27.20 Pulmonary hypertension, unspecified; I95.1 Orthostatic hypotension; Z95.1 Presence of aortocoronary bypass graft; N18.9 Chronic kidney disease, unspecified; K74.60 Unspecified cirrhosis of liver; E87.6 Hypokalemia
CPT/HCPCS: 36415; 71045-TC-FY; 74181-TC; 76536-TC; 76700-TC; 76942-TC; 80048; 80053; 80076; 82042; 82150; 82248; 82465; 82550; 82945; 82962; 82977; 83615; 83735; 83880; 83986; 84100; 84132; 84157; 84478; 84484; 85025; 85610; 85730; 86704; 86708; 86803; 87070; 87075; 87102; 87116; 87205; 87206; 87210; 87340; 87517; 88108; 88305-TC; 93005; 93010; 93306-TC; 94640; 99291

== ENCOUNTER 2024-11-05 10:12 | Observation (INO) | payer OTHER, MEDICARE ==
[2024-11-05 12:21] LABS: MCHC 30.7 g/dl (32.3-36.5); MEAN CELL VOLUME 91.6 fl (79.0-92.2); MEAN PLT VOLUME 10.2 fl (9.4-12.4); RDW 15.1 % (12.2-16.6)
[2024-11-05 12:43] LABS: CO2 36.0 mmol/L (21-32); GLUCOSE,RANDOM 133.0 mg/dL (74-106)
[2024-11-05 12:46] LABS: CREATININE 1.1 mg/dL (0.55-1.3); SGOT/AST 37.0 U/L (15-37); SGPT/ALT 44.0 U/L (13-61)
[2024-11-05 12:48] LABS: TOT PROT 6.8 g/dl (6.4-8.2)
[2024-11-05 12:49] LABS: ALK PHOS 136.0 U/L (45-117)
[2024-11-05 13:48] LABS: HIV INTERPRETATION NEGATIVE (NEGATIVE)
[2024-11-05 13:52] LABS: HCV DIAGNOSTIC IN-HOUSE W/RFLX NON-REACTIVE (NONREACTIVE)
[2024-11-05] MEDS ORDERED: FUROSEMIDE 40 MG/4 ML INJECTABLE VIAL ONE (16:29)
[2024-11-05] MEDS ORDERED: DOCUSATE SODIUM 100 MG CAPSULE (FP) PO PRN (21:46)
[2024-11-05] MEDS ORDERED: ACETAMINOPHEN 500 MG TABLET (FP) PO PRN (21:59)
[2024-11-06 00:37] VITALS: BMI 25.9
[2024-11-06] MEDS ORDERED: MAG HYDROX/AL HYDROX/SIMETH 30 ML UNIT-DOSE CUP PO PRN (00:45)
[2024-11-06] MEDS ORDERED: ALBUTEROL SO4 HFA INHALER IH PRN (00:45)
[2024-11-06] MEDS ORDERED: LEVALBUTEROL HCL 0.63 MG/3 ML VIAL.NEB. IH PRN (00:48)
[2024-11-06] MEDS: ATORVASTATIN CA 40 MG TABLET (FP) PO SCH (01:23)
[2024-11-06] MEDS: MIDODRINE HCL 5 MG TABLET PO SCH (01:23)
[2024-11-06] MEDS: POTASSIUM CHLORIDE TABS 20 MEQ TABLET.ER (FP) PO SCH (01:23)
[2024-11-06] MEDS: BUDESONIDE/FORMETEROL FUMARATE 160/4.5 mcg INHALER IH SCH (01:24)
[2024-11-06 08:50] LABS: ABSOLUTE IMMATURE GRANULOCYTES 0.03 x10^3/uL (0.0-0.031); BASOPHILS # 0.04 x10^3/uL (0.01-0.08); EOSINOPHIL % 11.8 % (0.8-7.0); EOSINOPHILS # 0.93 x10^3/uL (0.04-0.54); MCHC 30.0 g/dl (32.3-36.5); MEAN CELL VOLUME 92.8 fl (79.0-92.2); MEAN PLT VOLUME 10.8 fl (9.4-12.4); MONOCYTE # 0.81 x10^3/uL (0.30-0.82); MONOCYTE % 10.3 % (5.3-12.2); RDW 15.3 % (12.2-16.6)
[2024-11-06 08:54] LABS: INR 1.45 (0.83-1.09); PROTHROMBIN TIME (PATIENT) 15.8 SEC (9.7-13.0)
[2024-11-06 08:57] LABS: ACTIVATED PTT 33.1 SECONDS (25.2-36.5)
[2024-11-06] MEDS: TIOTROPIUM BROMIDE 2.5 MCG (SPIRIVA) RESPIMAT INHALER IH SCH (09:14)
[2024-11-06] MEDS: TAMSULOSIN HCL 0.4 MG CAP PO SCH (09:15)
[2024-11-06] MEDS: DUTASTERIDE 0.5 MG CAP (FP) PO SCH (09:15)
[2024-11-06] MEDS: POLYETHYLENE GLYCOL (HEALTHYLAX) 3350 17 GM PACKET PO SCH (09:16)
[2024-11-06 09:18] LABS: CO2 38.0 mmol/L (21-32); GLUCOSE,RANDOM 84.0 mg/dL (74-106)
[2024-11-06 09:21] LABS: CREATININE 1.0 mg/dL (0.55-1.3)
[2024-11-06] MEDS: DIGOXIN 0.125 MG TABLET PO SCH (09:21)
[2024-11-06] MEDS: CYANOCOBALAMIN 1,000 MCG TABLET (FP) PO SCH (09:23)
[2024-11-06] MEDS: CHOLECALCIFEROL (VIT D3) 1,000 UNIT (25 MCG) TABLET PO SCH (09:25)
[2024-11-06 14:19] VITALS: RESP 18
[2024-11-06] MEDS ORDERED: TORSEMIDE 20 MG TABLET (FP) PO SCH ×2 (21:24→21:28)
[2024-11-06] MEDS: TORSEMIDE 20 MG TABLET (FP) PO ONE (22:08)
[2024-11-07] MEDS: ATORVASTATIN CA 40 MG TABLET (FP) PO ONE (02:35)
[2024-11-07] MEDS: TORSEMIDE 20 MG TABLET (FP) PO SCH (05:51)
[2024-11-07 08:09] VITALS: PULSE 84
[2024-11-07 08:52] VITALS: BP 101/62; TEMP 98.1
== END 2024-11-07 11:15 | disposition home or self-care (01) ==
LOC: JER 10:12 → UNDOADMOB 18:54 → JERBED 18:54 → INTOOBSV 18:54 → JERBED 21:47 → J7W 22:44
PROVIDERS: ADMIT Family Medicine; ATTEND Family Medicine
PROC: 0W994ZZ Drainage of Right Pleural Cavity, Percutaneous Endoscopic Approach (ICD-10-PCS; principal; 2024-11-06)
PROC: 0JH60XZ Insertion of Tunneled Vascular Access Device into Chest Subcutaneous Tissue and Fascia, Open Approach (ICD-10-PCS; 2024-11-06)
DX: J90 Pleural effusion, not elsewhere classified (principal); T85.698A Other mechanical complication of other specified internal prosthetic devices, implants and grafts, initial encounter; X58.XXXA Exposure to other specified factors, initial encounter; I25.10 Atherosclerotic heart disease of native coronary artery without angina pectoris; J44.9 Chronic obstructive pulmonary disease, unspecified; Z95.1 Presence of aortocoronary bypass graft; R79.89 Other specified abnormal findings of blood chemistry; I48.91 Unspecified atrial fibrillation; R01.1 Cardiac murmur, unspecified; I27.20 Pulmonary hypertension, unspecified; N20.0 Calculus of kidney; M19.90 Unspecified osteoarthritis, unspecified site; I50.1 Left ventricular failure, unspecified; Z88.2 Allergy status to sulfonamides; Z88.8 Allergy status to other drugs, medicaments and biological substances; Z87.891 Personal history of nicotine dependence
CPT/HCPCS: 32550; 32555; 36415; 71046-TC-FY; 76604; 76937; 80048; 80053; 83880; 84484; 85025; 85027; 85610; 85730; 86803; 87389; 99285-25; G0378